=== PATIENT | male | born 1965 | race Caucasian/White ===

== ENCOUNTER 2018-03-21 12:48 | Emergency (ER) | payer BC, OTHER ==
[~2018-03-21] VITALS: Ht 172.7 cm; Wt 106.6 kg
[2018-03-21 13:01] VITALS: BP 153/86
[2018-03-21] MEDS ORDERED: LIDOCAINE 1% HCL (LOCAL ANESTH.) INJ 20ML MDV ONE (13:29)
[2018-03-21] MEDS ORDERED: LIDOCAINE 1% (LOCAL ANESTH.) PF 5ml SDV IJ ONE (13:30)
== END 2018-03-21 14:01 | disposition home or self-care (01) ==
LOC: ER 12:53
DX: L02.211 Cutaneous abscess of abdominal wall (principal); Z88.0 Allergy status to penicillin
CPT/HCPCS: 10060; 87205; 99283; J2001

== ENCOUNTER 2018-03-23 13:03 | Emergency (ER) | payer BC ==
[~2018-03-23] VITALS: Ht 172.7 cm; Wt 99.8 kg
[2018-03-23 13:31] VITALS: BP 146/84
== END 2018-03-23 15:38 | disposition home or self-care (01) ==
LOC: ER 13:07
DX: S31.104D Unspecified open wound of abdominal wall, left lower quadrant without penetration into peritoneal cavity, subsequent encounter (principal); R10.30 Lower abdominal pain, unspecified; Z88.0 Allergy status to penicillin; Z87.891 Personal history of nicotine dependence; Z90.49 Acquired absence of other specified parts of digestive tract; Z98.890 Other specified postprocedural states

== ENCOUNTER 2018-08-12 13:49 | Emergency (ER) | payer BC, OTHER ==
[~2018-08-12] VITALS: Ht 172.7 cm; Wt 106.6 kg
[2018-08-12 14:17] VITALS: BP 129/86
== END 2018-08-12 16:35 | disposition home or self-care (01) ==
LOC: ER 13:51
DX: K42.9 Umbilical hernia without obstruction or gangrene (principal); Z88.0 Allergy status to penicillin; Z91.013 Allergy to seafood; Z90.49 Acquired absence of other specified parts of digestive tract
CPT/HCPCS: 74176

== ENCOUNTER 2018-09-24 08:34 | Day surgery (SDC) | payer OTHER ==
[2018-09-22 13:59] LABS: Basophils # (auto) 0.1 uL; Basophils % (auto) 1.3 % (0.0-2.0); Eosinophils # (auto) 0.2 uL; Eosinophils % (auto) 2.3 % (0.0-7.0); Hemoglobin 17.3 g/dL (13.5-17.5); Lymphocytes # (auto) 2.6 uL; Lymphocytes % (auto) 25.5 % (10.0-50.0); Mean Corpuscular Hemoglobin 33.8 pg (28.0-32.0); Mean Corpuscular Volume 99.5 fL (80.0-100.0); Monocytes # (auto) 0.8 uL; Monocytes % (auto) 8.4 % (0.0-12.0); Neutrophils # (auto) 6.3 uL; Neutrophils % (auto) 62.5 % (37.0-80.0); Nucleated Red Blood Cells % 0.1 %; Platelet Count (auto) 254 10^3/uL (140-450); Red Blood Cells 5.13 10^6/uL (4.5-5.90); Red Cell Distribution Width 13.6 % (11.8-14.3); White Blood Cell 10.1 10^3/uL (4.4-10.8)
[2018-09-22 14:06] LABS: INR 0.97 (0.9-1.15); Partial Thromboplastin Time 29.6 sec (23.78-33.04); Prothrombin Time 10.4 sec (9.27-12.13)
[2018-09-22 14:10] LABS: Urine Bacteria NONE SEEN /hpf (None Seen); Urine Blood Negative /uL (Negative); Urine Mucus FEW (None Seen); Urine Specific Gravity 1.037 (1.001-1.035); Urine WBC 1 /hpf (0 - 3)
[2018-09-22 15:01] LABS: Albumin 3.8 g/dL (3.4-5.0); Calcium 9.1 mg/dL (8.5-10.1); Potassium 4.3 mmol/L (3.5-5.1)
[2018-09-22 15:03] LABS: BUN/Creatinine Ratio 21.9
[2018-09-22 15:06] LABS: Bilirubin, Total 0.5 mg/dL (0.2-1.0); Total Protein 7.8 g/dL (6.4-8.2)
[~2018-09-24] VITALS: Ht 172.7 cm; Wt 102.5 kg
[~2018-09-24 08:34] MED LIST: ACE3T PO
[2018-09-24] MEDS ORDERED: LEVOFLOXACIN 500MG 100 ML IV ONE (11:03)
[2018-09-24] MEDS ORDERED: MIDAZOLAM HCL 1MG/1ML-2 ML VIAL ONE ×2 (11:39→12:33)
[2018-09-24] MEDS ORDERED: LIDOCAINE 2% (LOCAL ANESTH.) PF 5ml SDV ONE (11:40)
[2018-09-24] MEDS ORDERED: ROCURONIUM 10MG/ML 10ML VIAL IV ONE (11:41)
[2018-09-24] MEDS ORDERED: SUCCINYLCHOLINE CHLORIDE 20 MG/ML 10ML VIAL IV ONE (12:30)
[2018-09-24] MEDS ORDERED: NALOXONE HCL 0.4 MG/ML VIAL IV PRN (12:30)
[2018-09-24] MEDS ORDERED: LIDOCAINE HCL (LOCAL ANESTH.) 0.5 % 50ML MDV IJ ONE (12:30)
[2018-09-24] MEDS ORDERED: HYDROmorphone HCL 2 MG/ML VL IV PRN (12:30)
[2018-09-24] MEDS ORDERED: ONDANSETRON HCL 4 MG/2 ML VIAL IV ONE (12:30)
[2018-09-24] MEDS ORDERED: METOCLOPRAMIDE HCL 5MG/ml INJ 2ml VIAL ONE (12:33)
[2018-09-24] MEDS ORDERED: PROPOFOL 10 MG/ML 20 ML IV ONE (12:38)
[2018-09-24] MEDS ORDERED: ePHEDrine SULFATE 50 MG/ML AMP ONE (12:50)
[2018-09-24] MEDS ORDERED: fentaNYL CITRATE 100 MCG/2 ML VL ONE (12:56)
[2018-09-24] MEDS ORDERED: KETOROLAC TROMETH 30 MG/ML 1ML VIAL ONE (13:04)
[2018-09-24] MEDS ORDERED: NEOSTIGMINE 1 MG/ML INJ (10mg/10ML VIAL) ONE (13:40)
[2018-09-24] MEDS ORDERED: GLYCOPYRROLATE 0.2 MG/ML 1ML VIAL ONE (13:40)
[2018-09-24] MEDS: HYDROmorphone HCL 2 MG/ML VL IV PRN ×2 (14:14→14:37)
[2018-09-24 15:11] VITALS: BP 144/90
== END 2018-09-24 15:33 | disposition home or self-care (01) ==
LOC: SUR 08:34
PROVIDERS: ATTEND Surgery
DX: K42.9 Umbilical hernia without obstruction or gangrene (principal); K43.2 Incisional hernia without obstruction or gangrene; E66.9 Obesity, unspecified; M19.90 Unspecified osteoarthritis, unspecified site; G47.33 Obstructive sleep apnea (adult) (pediatric); J44.9 Chronic obstructive pulmonary disease, unspecified; F17.210 Nicotine dependence, cigarettes, uncomplicated; I10 Essential (primary) hypertension; Z91.013 Allergy to seafood; Z68.34 Body mass index [BMI] 34.0-34.9, adult; Z90.49 Acquired absence of other specified parts of digestive tract; Z79.899 Other long term (current) drug therapy; Z88.0 Allergy status to penicillin; Z79.891 Long term (current) use of opiate analgesic
CPT/HCPCS: 36415; 49561; 80053; 81001; 85025; 85610; 85730; 88302; J0330; J1170; J1885; J1956; J2001; J2250; J2405; J2704; J2765; J3010; V2790

== ENCOUNTER 2023-04-14 13:45 | Inpatient (IN) | payer OTHER ==
[~2023-04-14] VITALS: Ht 172.7 cm; Wt 56.4 kg
[2023-04-14 14:49] LABS: Basophils # (auto) 0 10 ^3/uL (0-0.2); Basophils % (auto) 0.2 % (0.0-2.0); Eosinophils # (auto) 0.2 10 ^3/uL (0-0.8); Eosinophils % (auto) 2.2 % (0.0-7.0); Hematocrit 51.3 % (41.0-53.0); Hemoglobin 16.9 g/dL (13.5-17.5); Lymphocytes % (auto) 21.9 % (10.0-50.0); Mean Corpuscular Hemoglobin 33.3 pg (28.0-32.0); Mean Corpuscular Hgb Conc. 32.9 g/dL (32.0-36.0); Mean Corpuscular Volume 101.3 fL (80.0-100.0); Monocytes # (auto) 1.3 10 ^3/uL (0-1.3); Neutrophils # (auto) 5.7 10 ^3/uL (1.6-8.6); Neutrophils % (auto) 61.7 % (37.0-80.0); Nucleated Red Blood Cells % 0.3 %; Red Blood Cells 5.06 10^6/uL (4.5-5.90); Red Cell Distribution Width 15.8 % (11.8-14.3); White Blood Cell 9.3 10^3/uL (4.4-10.8)
[2023-04-14 15:13] LABS: Calcium 8.1 mg/dL (8.5-10.1); Potassium 4.5 mmol/L (3.5-5.1)
[2023-04-14 15:16] LABS: BUN/Creatinine Ratio 27.9 (10.0-20.0); Bilirubin, Total 0.8 mg/dL (0.2-1.0); Total Protein 6.4 g/dL (6.4-8.2)
[2023-04-14] MEDS ORDERED: BUDESONIDE (INHALATION) 0.5 MG/2 ML NEB NEB ONE (16:00)
[2023-04-14] MEDS ORDERED: ALBUTEROL SULF 2.5 MG/0.5ML(0.5%) NEB SOLN NEB ONE (16:00)
[2023-04-14] MEDS ORDERED: IPRATROPIUM BROM 0.5 MG/2.5ML INH SOL NEB ONE (16:00)
[2023-04-14 16:22] LABS: INR 1.24 (0.9-1.15); Partial Thromboplastin Time 29.5 sec (24.6-33.4)
[2023-04-14] MEDS ORDERED: NITROGLYCERIN 0.4 MG SL TAB SL PRN (17:30)
[2023-04-14] MEDS ORDERED: ACETAMINOPHEN 325 MG TAB PO PRN (17:30)
[2023-04-14] MEDS ORDERED: ALBUTEROL SULF 2.5 MG/0.5ML(0.5%) NEB SOLN NEB PRN (17:30)
[2023-04-14] MEDS ORDERED: MORPHINE SULFATE INJ 2 MG/ml SYRG IV PRN (17:30)
[2023-04-14] MEDS ORDERED: AZITHROMYCIN 500MG/ 250ML 250 ML IV ONE (17:45)
[2023-04-14] MEDS ORDERED: cefTRIAXone 1GM/50ML D5W 50 ML IV ONE (17:45)
[2023-04-14] MEDS ORDERED: ASPirin 325 MG TAB PO ONE (17:45)
[2023-04-14] MEDS: levoFLOXacin 500MG 100 ML IV SCH (17:45)
[2023-04-14] MEDS ORDERED: FUROSEMIDE 40 MG/4 ML VIAL IV ONE (17:45)
[2023-04-14 18:12] LABS: Cholesterol 103 mg/dL (< 200)
[2023-04-14 18:14] LABS: HDL Cholesterol 26 mg/dL (40-59); LDL Cholesterol 65 mg/dL (< 100); Triglycerides 91 mg/dL (< 150)
[2023-04-14] MEDS: ALBUTEROL SULF 2.5 MG/0.5ML(0.5%) NEB SOLN NEB SCH ×2 (18:37→22:52)
[2023-04-14] MEDS: IPRATROPIUM BROM 0.5 MG/2.5ML INH SOL NEB SCH ×2 (18:37→22:52)
[2023-04-15] MEDS: IPRATROPIUM BROM 0.5 MG/2.5ML INH SOL NEB SCH ×6 (02:23→23:08)
[2023-04-15] MEDS: ALBUTEROL SULF 2.5 MG/0.5ML(0.5%) NEB SOLN NEB SCH ×6 (02:23→23:08)
[2023-04-15 06:00] LABS: Basophils # (auto) 0.1 10 ^3/uL (0-0.2); Basophils % (auto) 0.8 % (0.0-2.0); Eosinophils # (auto) 0.2 10 ^3/uL (0-0.8); Eosinophils % (auto) 2.2 % (0.0-7.0); Mean Corpuscular Hemoglobin 33.7 pg (28.0-32.0); Mean Corpuscular Hgb Conc. 33.2 g/dL (32.0-36.0); Mean Corpuscular Volume 101.4 fL (80.0-100.0); Monocytes # (auto) 1.1 10 ^3/uL (0-1.3); Monocytes % (auto) 13.4 % (0.0-12.0); Neutrophils # (auto) 4.9 10 ^3/uL (1.6-8.6); Neutrophils % (auto) 59.6 % (37.0-80.0); Nucleated Red Blood Cells % 0.1 %; Red Blood Cells 4.73 10^6/uL (4.5-5.90); Red Cell Distribution Width 15.5 % (11.8-14.3); White Blood Cell 8.3 10^3/uL (4.4-10.8)
[2023-04-15 06:13] LABS: Potassium 3.9 mmol/L (3.5-5.1)
[2023-04-15 06:23] LABS: Albumin 2.8 g/dL (3.4-5.0); Bilirubin, Total 0.6 mg/dL (0.2-1.0); Calcium 8.2 mg/dL (8.5-10.1); Total Protein 6.7 g/dL (6.4-8.2)
[2023-04-15] MEDS ORDERED: cefTRIAXone 1GM/50ML D5W 50 ML IV SCH (09:00)
[2023-04-15] MEDS ORDERED: ENOXAPARIN SOD 40 MG/0.4 ML SYRINGE SC SCH (10:00)
[2023-04-15] MEDS ORDERED: FUROSEMIDE 20 MG/2 ML VIAL IV SCH (10:00)
[2023-04-15] MEDS ORDERED: AZITHROMYCIN 500MG/ 250ML 250 ML IV SCH (10:00)
[2023-04-15] MEDS: levoFLOXacin 500MG 100 ML IV SCH (10:55)
[2023-04-15] MEDS ORDERED: CARV3.1240 PO (11:11)
[2023-04-15] MEDS ORDERED: CYCL-837 PO (11:11)
[2023-04-15] MEDS ORDERED: VARE1TAB12 PO (11:11)
[2023-04-15] MEDS ORDERED: FURO20TA3 PO (11:11)
[2023-04-15] MEDS: CARVEDILOL 3.125 MG TAB PO SCH ×2 (12:39→22:45)
[2023-04-15] MEDS ORDERED: DIGOXIN (250MCG/ML) 2 ML AMPULE IV ONE (12:45)
[2023-04-15] MEDS ORDERED: metOLazone 5 MG TAB PO ONE (12:45)
[2023-04-15] MEDS: AMIODARONE HCL 200 MG TAB PO SCH ×2 (13:02→22:45)
[2023-04-15 15:25] VITALS: BP 118/78
[2023-04-15] MEDS: RIVAROXABAN 20 MG TAB PO SCH (20:03)
[2023-04-15] MEDS: CYCLOBENZAPRINE HCL 10 MG TAB PO PRN (20:42)
[2023-04-16] VITALS (12 sets, daily range): BP systolic 110–130; BP diastolic 74–90
[2023-04-16] MEDS: IPRATROPIUM BROM 0.5 MG/2.5ML INH SOL NEB SCH ×6 (02:00→22:21)
[2023-04-16] MEDS: ALBUTEROL SULF 2.5 MG/0.5ML(0.5%) NEB SOLN NEB SCH ×6 (02:00→22:21)
[2023-04-16] MEDS ORDERED: FORM1POW2 XX (04:55)
[2023-04-16] MEDS ORDERED: MIDAZOLAM HCL 2MG/2ML 2ml VIAL (1mg/ml) IV ONE (09:30)
[2023-04-16] MEDS ORDERED: fentaNYL CITRATE 100 MCG/2 ML VL IV ONE (09:30)
[2023-04-16] MEDS ORDERED: LIDOCAINE VISCOUS 2% 15ML UD PO ONE (09:30)
[2023-04-16] MEDS: FUROSEMIDE 40 MG/4 ML VIAL IV SCH (09:40)
[2023-04-16] MEDS: AMIODARONE HCL 200 MG TAB PO SCH ×2 (09:41→21:10)
[2023-04-16] MEDS: CARVEDILOL 3.125 MG TAB PO SCH ×2 (09:41→21:11)
[2023-04-16] MEDS: levoFLOXacin 500MG 100 ML IV SCH (09:41)
[2023-04-16] MEDS ORDERED: ACETAMINOPHEN/CODEINE#3 (300/30mg) TAB PO PRN (17:15)
[2023-04-16] MEDS: RIVAROXABAN 20 MG TAB PO SCH (17:52)
[2023-04-16] MEDS: CYCLOBENZAPRINE HCL 10 MG TAB PO PRN (17:52)
[2023-04-17] MEDS: CYCLOBENZAPRINE HCL 10 MG TAB PO PRN (01:45)
[2023-04-17] MEDS: IPRATROPIUM BROM 0.5 MG/2.5ML INH SOL NEB SCH ×5 (02:00→18:36)
[2023-04-17] MEDS: ALBUTEROL SULF 2.5 MG/0.5ML(0.5%) NEB SOLN NEB SCH ×5 (02:00→18:36)
[2023-04-17 05:00] VITALS: BP 113/72
[2023-04-17 08:00] VITALS: BP 132/56
[2023-04-17 09:32] VITALS: BP 113/68
[2023-04-17] MEDS ORDERED: FURO1TAB33 PO (10:18)
[2023-04-17] MEDS ORDERED: AMIO200T33 PO (10:18)
[2023-04-17] MEDS ORDERED: DAPA1TAB4 PO (10:18)
[2023-04-17] MEDS ORDERED: RIVA20TA PO (10:18)
[2023-04-17] MEDS ORDERED: CAR3125T PO (10:18)
[2023-04-17] MEDS ORDERED: ATO40T PO (10:18)
[2023-04-17] MEDS ORDERED: ENAL5TAB22 PO (10:18)
[2023-04-17] MEDS: CARVEDILOL 3.125 MG TAB PO SCH (10:24)
[2023-04-17] MEDS: levoFLOXacin 500MG 100 ML IV SCH (10:24)
[2023-04-17] MEDS: FUROSEMIDE 40 MG/4 ML VIAL IV SCH (10:24)
[2023-04-17] MEDS: AMIODARONE HCL 200 MG TAB PO SCH (10:26)
[2023-04-17] MEDS ORDERED: LEVO500T91 PO (10:27)
[2023-04-17 13:00] VITALS: BP 132/56
[2023-04-17 16:42] VITALS: BP 147/72
[2023-04-17] MEDS: RIVAROXABAN 20 MG TAB PO SCH (18:26)
== END 2023-04-17 20:03 | disposition home or self-care (01) | DRG 193 ==
LOC: ER 13:45 → TELE 17:31 → TELE-WESTW 04-16 04:15
PROVIDERS: ADMIT Nurse Practitioner Family; ATTEND Family Medicine
PROC: B24BZZ4 Ultrasonography of Heart with Aorta, Transesophageal (ICD-10-PCS; principal; 2023-04-16)
PROC: 5A2204Z Restoration of Cardiac Rhythm, Single (ICD-10-PCS; 2023-04-16)
DX: J18.9 Pneumonia, unspecified organism (principal); I50.23 Acute on chronic systolic (congestive) heart failure; J96.01 Acute respiratory failure with hypoxia; J44.1 Chronic obstructive pulmonary disease with (acute) exacerbation; J44.0 Chronic obstructive pulmonary disease with (acute) lower respiratory infection; I48.92 Unspecified atrial flutter; Z68.1 Body mass index [BMI] 19.9 or less, adult; I11.0 Hypertensive heart disease with heart failure; I48.91 Unspecified atrial fibrillation; E66.01 Morbid (severe) obesity due to excess calories; E78.00 Pure hypercholesterolemia, unspecified; F17.210 Nicotine dependence, cigarettes, uncomplicated; I25.5 Ischemic cardiomyopathy; Z79.01 Long term (current) use of anticoagulants; Z91.013 Allergy to seafood; Z88.0 Allergy status to penicillin
CPT/HCPCS: 36415; 36600; 71045; 80053; 80061; 82805; 83880; 84443; 84484; 85025; 85379; 85610; 85730; 87426; 87804; 93005; 93306; 93312; 93970; 94640; 96365; 96372; 96375; 99152; 99153; G0378; J1956; J2250

== ENCOUNTER 2025-03-24 15:52 | Inpatient (IN) | payer MEDICAID, OTHER ==
[2025-03-24] VITALS (13 sets, daily range): BP systolic 107–120; BP diastolic 71–78; PULSE 62–90; RESP 12–21; TEMP 97.7–98.3; O2SAT 90–99
[~2025-03-24] VITALS: Ht 175.3 cm; Wt 90.4 kg
[~2025-03-24 15:52] MED LIST changes: +AMIO200T33 PO; +ATOR-507 PO; +CAR3125T PO; +CARV3.1240 PO; +CYCL-837 PO; +DAPA1TAB4 PO; +ENAL5TAB22 PO; +FORM1POW2 XX; +FURO1TAB33 PO; +FURO20TA3 PO; +LEVO500T91 PO; +RIVA20TA PO; +VARE1TAB12 PO
[2025-03-24] MEDS: AMIODARONE BOLUS KIT 100 ML IV ONE (16:00)
[2025-03-24] MEDS: ONDANSETRON HCL 4 MG/2 ML VIAL IV ONE (16:00)
[2025-03-24] MEDS: methylPREDNISolone SOD SUCC 125 MG/2 ML VL ONE ×2 (16:00→16:08)
[2025-03-24] MEDS: MORPHINE SULFATE 4 MG/ML SYR/VIAL IV ONE (16:00)
[2025-03-24] MEDS: ANGIOMAX 250 MG VIAL IV ONE (16:00)
[2025-03-24] MEDS: MIDAZOLAM HCL 2MG/2ML 2ml VIAL (1mg/ml) ONE (16:01)
[2025-03-24] MEDS: diphenhdrAMINE HCL 50 MG/1 ML VL ONE (16:01)
[2025-03-24] MEDS: LIDOCAINE 2%HCL (LOCAL ANESTH.) INJ 20ML MDV ONE (16:02)
[2025-03-24] MEDS: SODIUM CHL 0.9% 50 ML ONE (16:02)
[2025-03-24] MEDS: IODIXANOL 320MG/ML 100ML BTL IV ONE (16:02)
[2025-03-24] MEDS: fentaNYL CITRATE 100 MCG/2 ML VL ONE (16:06)
--- NOTE | 2025-03-24 16:08 | ED.PDOC ---
History of Present Illness HPI Comments 59-year-old male presents with a chief complaint of chest pain x 2 days. Patient states that his pain is localized to his sternal region, radiating to his back side, describes as tightness and rates his pain a 10/10. Patient mentions that he initially went to urgent care and they saw PVCs on his EKG and it stated "ACUTE ID" which they then called CODE STEMI overhead. Patient was evaluated by Cardiac NET APPLICATIONS DEVELOPER Brittani Borges and CODE STEMI was cancelled. Patient denies any nausea, vomiting, or diarrhea at this time. Chief Complaint: Chest Pain Time Seen by MD: 15:52 Primary Care Provider: GAYE/EULA Reviewed Notes: Medications, Allergies Allergies: Coded Allergies: Penicillins (Verified Allergy, Unknown, 09/22/18) Shellfish Allergy (Verified Allergy, Unknown, 09/22/18) Home Meds Active Scripts Levofloxacin Hemihydrate (LEVAQUIN 500 MG) 500 Mg Tab, 1 TAB PO DAILY, #7 TAB Prov:JOVI FIGUEROA MD 04/17/23 Furosemide (Lasix) 20 Mg Tb, 1 TAB PO DAILY, #90 TAB 1 Refill Prov:JOVI FIGUEROA MD 04/17/23 Enalapril Maleate (Enalapril Maleate) 5 Mg Tab, 1 TAB PO DAILY, #90 TAB 1 Refill Prov:JOVI FIGUEROA MD 04/17/23 Carvedilol (Coreg) 3.125 Mg Tab, 1 TAB PO BID, #180 TAB 3 Refills Prov:JOVI FIGUEROA MD 04/17/23 Dapagliflozin Propanediol (Farxiga) 10 Mg Tab, 10 MG PO DAILY, #90 TAB Prov:JOVI FIGUEROA MD 04/17/23 Atorvastatin Calcium (Lipitor) 40 Mg Tab, 1 TAB PO QPM, #90 TAB 1 Refill Prov:JOVI FIGUEROA MD 04/17/23 Amiodarone Hcl (Amiodarone Hcl) 200 Mg Tab, 1 TAB PO BID, #180 TAB 1 Refill Prov:JOVI FIGUEROA MD 04/17/23 Rivaroxaban (XARELTO) 20 Mg Tab, 1 TAB PO DAILY, #90 TAB 3 Refills Prov:JOVI FIGUEROA MD 04/17/23 Reported Medications Formoterol Fumarate Dihydrate (Formoterol Fumarate) 1 Pow Pow, 1 POW XX PRN for SHORTNESS OF BREATH, POW 04/16/23 Carvedilol (Carvedilol) 3.125 Mg Tab, 1 TAB PO BID, #60 TAB 3 Refills 04/15/23 Cyclobenzaprine Hcl (Cyclobenzaprine Hcl) 5 Mg Tab, 10 MG PO DAILY, TAB 04/15/23 Furosemide (Furosemide) 20 Mg Tab, 1 TAB PO DAILY, #90 TAB 1 Refill 04/15/23 Varenicline Tartrate (Varenicline Starti... 0.5 mg X 11 & 1 mg X 42) 1 Tab Tab, 1 TAB PO 2XW, TAB 04/15/23 Acetaminophen W/ Codeine (Tylenol W/Cod #3) 1 Tab Tb, 1 TAB PO PRN 09/22/18 Information Source: Patient Mode of Arrival: Wheelchair Severity: Moderate Timing: Days Duration: Since onset Prehospital treatment: None Past Medical History PAST MEDICAL HISTORY: COPD Surgical History: Appendectomy, Hernia Repair, Tonsillectomy Family History Family History: Unknown Social History Smoker: Cigarettes Alcohol: Denies ETOH Use Drugs: Denies Drug Use Lives In: Home Constitutional: denies: chills, diaphoresis, fatigue, fever, malaise, sweats, weakness, others EENTM: denies: blurred vision, double vision, ear bleeding, ear discharge, ear drainage, ear pain, ear ringing, eye pain, eye redness, hearing loss, mouth pain, mouth swelling, nasal discharge, nose bleeding, nose congestion, nose pain, photophobia, tearing, throat pain, throat swelling, voice changes, others Respiratory: reports: shortness of breath; denies: cough, hemoptysis, orthopnea, SOB at rest, SOB with excertion, stridor, wheezing, others Cardiovascular: reports: chest pain; denies: dizzy spells, diaphoresis, Dyspnea on exertion, edema, irregular heart beat, left arm pain, lightheadedness, palpitations, PND, syncope, others Gastrointestinal: denies: abdomen distended, abdominal pain, blood streaked bowels, constipated, diarrhea, dysphagia, difficulty swallowing, hematemesis, melena, nausea, poor appetite, poor fluid intake, rectal bleeding, rectal pain, vomiting, others Genitourinary: denies: burning, dysuria, flank pain, frequency, hematuria, incontinence, penile discharge, penile sore, pain, testicle pain, testicle swelling, urgency, others Neurological: denies: dizziness, fainting, headache, left sided numbness, left sided weakness, numbness, paresthesia, pre-existing deficit, right sided numbness, right sided weakness, seizure, speech problems, tingling, tremors, weakness, others Musculoskeletal: denies: back pain, gout, joint pain, joint swelling, muscle pain, muscle stiffness, neck pain, others Integumetry: denies: bruises, change in color, change in hair/nails, dryness, laceration, lesions, lumps, rash, wounds, others Allergic/Immunocompromised: denies: Difficulty Healing, Frequent Infections, Hives, Itching, others Hematologic/Lymphatic: denies: anemia, blood clots, easy bleeding, easy bruising, swollen glands, others Endocrine: denies: excessive hunger, excessive sweating, excessive thirst, excessive urination, flushing, intolerance to cold, intolerance to heat, unexplained weight gain, unexplained weight loss, others Psychiatric: denies: anxiety, bipolar disorder, depression, hopeless, panic disorder, schizophrenia, sleepless, suicidal, others All Other Systems: Reviewed and Negative Physical Exam General Appearance: Moderate Distress, Normal HEENT: Normal ENT Inspection, Pharynx Normal, TMs Normal Neck: Full Range of Motion, Non-Tender, Normal, Normal Inspection Respiratory: Chest Non-Tender, Lungs Clear, No Accessory Muscle Use, No Respiratory Distress, Normal Breath Sounds Cardiovascular: Irregular, No Edema, No JVD, No Murmur, No Gallop, Normal Peripheral Pulses, Tachycardia Breast Exam: Deferred Gastrointestinal: No Organomegaly, Non Tender, No Pulsatile Mass, Normal Bowel Sounds, Soft Genitalia: Deferred Pelvic: Deferred Rectal: Deferred Extremities: No calf tenderness, Normal capillary refill, Normal inspection, Normal range of motion, Non-tender, No pedal edema Musculoskeletal : Apperance: Normal Neurologic: Alert, piped pocket machine operator II-XII nml as Tested, No Motor Deficits, Normal Affect, Normal Mood, No Sensory Deficits Cerebellar Function: NOT DONE Reflexes: NOT DONE Skin: Dry, Normal Color, Warm Peripheral Pulses: 3+ Radial (R), 3+ Radial (L) Lymphatic: No Adenopathy Was a procedure done? Was a procedure done?: No Differential Dx Considerations may include: Atrial flutter Electrolyte imbalance X-Ray, Labs, Meds, VS Vital Signs Date Time Temp Pulse Resp B/P (MAP) Pulse Ox O2 Delivery O2 Flow Rate FiO2 03/24/25 16:06 98.3 79 16 138/82 (100) 95 98.3 03/24/25 16:06 79 21 95 Nasal Cannula* 3 32 03/24/25 16:06 98.3 79 21 138/82 (100) 95 98.3 03/24/25 15:54 78 03/24/25 15:52 95 Room Air* 0 21 03/24/25 15:52 98.3 79 16 138/82 (100) 95 98.3 Patient alert. Came in because of chest discomfort. EKG does show atrial flutter. Placed on oxygen. Was given morphine. Was given Zofran. Cardiology at bedside. Was taken to laboratory analyst. Explained to family. Continue to monitor. Time of 1ST Reevaluation: 16:22 Reevaluation 1ST: Unchanged Patient Education/Counseling: Diagnosis, Treatment, Need For Follow Up Family Education/Counseling: No Family Present Departure 1 Departure Time of Disposition: 16:29 Impression: Primary Impression: NSTEMI (non-ST elevated myocardial infarction) Additional Impression: Atrial flutter Qualified Codes: I48.92 - Unspecified atrial flutter Disposition: ADMITTED INPATIENT Admit to: Med Surg Condition: Guarded Critical Care Note Critical Care Time?: Yes (45 min-critical care time only) Critical care comment: Atrial flutter Stability Stability form required: No Heart Score Heart Score: Heart Score Response (Comments) Value History Slightly Suspicious 0 EKG Normal 0 Age 45-64 1 Risk Factors >3 or Hx ASHD 2 Troponin N/A 0 Total 3 I personally scribed for CHANTAL FUCHS MD ([email or web address]) on 03/24/25 at 16:08. Electronically submitted by Sp Traylor ([email or web address]). CHANTAL FUCHS MD March 24, 2025 16:08
[2025-03-24] MEDS: FAMOTIDINE (10MG/ML) 2ML VL IV ONE (16:09)
[2025-03-24] MEDS: HEPARIN SODIUM (PORCINE) 5000 UNITS/ML 1ML VIAL ONE ×2 (16:12→16:47)
[2025-03-24] MEDS: VERAPAMIL 2.5MG/ML INJ 2ML VIAL IV ONE (16:12)
[2025-03-24] MEDS: AMIODARONE 360mg/200mL PREMIX 200 ML IV ONE ×2 (16:15→16:21)
--- NOTE | 2025-03-24 16:15 | DVHINCON2 ---
Date Seen: March 24, 2025 Referring Physician MD Aliya Reason for Consultation Chest pain History of Present Illness This is a 59-year-old man who presented to the [facility] urgent care clinic with a chief complaint of chest pain for two days. Describes his chest pain as substernal, nonradiating, tightness like, radiating to his back, and associated with RUQ abd pain, nausea and constipation for which the patient was taking a laxative OTC. He presented to the urgent care clinic undergoing a 12 lead electrocardiogram revealing a flutter rhythm with bigeminal PVCs with provider calling a Code STEMI. 12 lead electrocardiogram sent to on-call STEMI biostatistics professor, Dr. Stephens, cancelling the code. The patient was then transferred to the Emergency Room for further evaluation. Patient follows up in the outpatient setting with Dr. Milan. Significant medical history includes a-fib/a-flutter on amiodarone/BB/Xarelto and with a history of RUBY and DC cardioversion 2022, ischemic cardiomyopathy with LVEF of 25%, COPD secondary to smoking,hypertension, dyslipidemia, thyroid disease, history of nicotine dependence, methamphetamine abuse, and obesity. Past Medical History Past medical history reviewed. No other significant than mentioned above. Past Surgical History Appendectomy Hernia repair Tonsillectomy Family History: Patient reports no known family medical history. Family History Familial history reviewed. Social History Denies the use of illicit drugs, alcohol, or tobacco use. Allergies: Coded Allergies: Penicillins (Verified Allergy, Unknown, 09/22/18) Shellfish Allergy (Verified Allergy, Unknown, 09/22/18) Home Meds Active Scripts Levofloxacin Hemihydrate (LEVAQUIN 500 MG) 500 Mg Tab, 1 TAB PO DAILY, #7 TAB Prov:JOVI FIGUEROA MD 04/17/23 Furosemide (Lasix) 20 Mg Tb, 1 TAB PO DAILY, #90 TAB 1 Refill Prov:JOVI FIGUEROA MD 04/17/23 Enalapril Maleate (Enalapril Maleate) 5 Mg Tab, 1 TAB PO DAILY, #90 TAB 1 Refill Prov:JOVI FIGUEROA MD 04/17/23 Carvedilol (Coreg) 3.125 Mg Tab, 1 TAB PO BID, #180 TAB 3 Refills Prov:JOVI FIGUEROA MD 04/17/23 Dapagliflozin Propanediol (Farxiga) 10 Mg Tab, 10 MG PO DAILY, #90 TAB Prov:JOVI FIGUEROA MD 04/17/23 Atorvastatin Calcium (Lipitor) 40 Mg Tab, 1 TAB PO QPM, #90 TAB 1 Refill Prov:JOVI FIGUEROA MD 04/17/23 Amiodarone Hcl (Amiodarone Hcl) 200 Mg Tab, 1 TAB PO BID, #180 TAB 1 Refill Prov:JOVI FIGUEROA MD 04/17/23 Rivaroxaban (XARELTO) 20 Mg Tab, 1 TAB PO DAILY, #90 TAB 3 Refills Prov:JOVI FIGUEROA MD 04/17/23 Reported Medications Formoterol Fumarate Dihydrate (Formoterol Fumarate) 1 Pow Pow, 1 POW XX PRN for SHORTNESS OF BREATH, POW 04/16/23 Carvedilol (Carvedilol) 3.125 Mg Tab, 1 TAB PO BID, #60 TAB 3 Refills 04/15/23 Cyclobenzaprine Hcl (Cyclobenzaprine Hcl) 5 Mg Tab, 10 MG PO DAILY, TAB 04/15/23 Furosemide (Furosemide) 20 Mg Tab, 1 TAB PO DAILY, #90 TAB 1 Refill 04/15/23 Varenicline Tartrate (Varenicline Starti... 0.5 mg X 11 & 1 mg X 42) 1 Tab Tab, 1 TAB PO 2XW, TAB 04/15/23 Acetaminophen W/ Codeine (Tylenol W/Cod #3) 1 Tab Tb, 1 TAB PO PRN 09/22/18 Home Meds Home medications reviewed. Review of Systems Constitutional: No symptom reported Ears, Nose, & Throat: No symptom reported Eyes: No symptom reported Neurological: No symptoms reported Pulmonary/Respiratory: No symptom reported Cardiovascular: Chest pain Gastrointestinal: RUQ flank pain, constipation, nausea Genitourinary: No symptom reported Musculoskeletal: No symptom reported Skin: No symptom reported Psychiatric: No symptom reported Endocrine: No symptom reported Hemotologic/Lymphatic: No symptom reported Vital Signs Vital Signs Date Time Temp Pulse Resp B/P (MAP) Pulse Ox O2 Delivery O2 Flow Rate FiO2 03/24/25 16:06 98.3 79 16 138/82 (100) 95 98.3 03/24/25 16:06 Nasal Cannula* 3 32 Physical Exam General Appearance: Cooperative. Well developed. he will be. In no acute distress Head Exam: Normal inspection Neck Exam: Normal inspection. Non-tender. Normal alignment Pulmonary/Respiratory: Chest non-tender. Diminished bilateral breath sounds Cardiovascular/Chest: Regular rate and rhythm. Atrial flutter with ventricular bigeminy. No murmurs. No JVD. Peripheral Pulses: 2+ Radial (R). 2+ Radial (L). 2+ Pedal (R). 2+ Pedal (L) Abdominal Exam: Normal bowel sounds. Soft. Nontender. No hepatospenomegaly. No masses Ankle Exam: Negative ankle edema Lower extremities: Negative lower extremity edema Neuro/Mental Status: A&O x4. Coherent Thoughts/Psych: Normal thought pattern. Appropriate mood and affect. Good judgement and insight Appearance: In no acute distress Skin Exam: Normal inspection. Normal color. Warm. Dry Assessment Acute chest pain rule out coronary artery disease Nonischemic cardiomyopathy with LVEF of 25%, NYHA Class III Long standing persistent atrial fibrillation/atrial flutter, Stage III (on Xarelto/BB/amiodarone) COPD with history of tobacco dependence History of methamphetamine use Hypertension Dyslipidemia Obesity Plan/Recommendation (Dr. Millard) Given the patient's persistent and worsening chest pain symptoms, he has been scheduled for an urgent cardiac catheterization with coronary angiogram at first available. All risks and benefits of the procedure were discussed in full detail and agreed to proceed with intervention. All questions answered. Blood work pending at this time. Follows up in the outpatient setting with Dr. Milan, kindly reach out post-procedure for further cardiac follow-up. Thank you for allowing us to participate in this patient's care. Please call if you have any questions or concerns. Critical care time: 40 min. This medical document was created using an electronic medical record system with voice recognition software and computerized dictation system. Although this document has been carefully reviewed, there might still be some phonetic and typographical errors. Occasional wrong-word or ``sound-alike substitutions may have occurred due to the inherent limitations of voice recognition software. These areas are purely typographical due to imperfections of the software programs and do not reflect any compromise in the patient's medical care. Please read the chart carefully and recognize, using context, where these substitutions have occurred. Plan discussed with: Patient, Other NYHA Physical activity limitations: Class3(Marked) ordinary (activity causes symtoms) Date of Service: March 24, 2025 Billing Provider: RADHA CHACON Cardiology Common Codes: 87967-RLLTTEKH CARE 30-74 MIN RADHA CHACON March 24, 2025 16:15
--- NOTE | 2025-03-24 16:35 | DVHHPRES ---
History of Present Illness Resident Creating Document: ANIL FOX RESIDENT History of Present Illness This is a 59-year-old male patient with PMHx of systolic CHF-EF 25%, COPD on 3- 4 L home oxygen, inguinal hernia repair 2017, atrial flutter/fibrillation on Xarelto/beta bernard/amiodarone 2022 s/p RUBY and DC cardioversion, met hamphetamine abuse who initially went to the urgent care with chief complaint of chest tightness and right lower quadrant abdominal pain for the past 2 days. Per patient, he has been experiencing sharp, continuous right lower quadrant abdominal pain associated with vomiting 1 X, worsens with food, also reports constipation but says that he has been passing gas. He also mentioned intermittent chest tightness, substernal, nonradiating for which EKG was completed at urgent care which showed bigeminal PVCs and flutter rhythm, code STEMI was called. Bath Attendant canceled the code after a repeat EKG was completed. Past medical history: See above Past surgical history: 3 hernia surgeries in the past, tonsillectomy Social history: Quit smoking 6 months back, previously smoked 1 pack a day for the past 20 years, denies drinking or illicit drug use PCP Dr. Osullivan Bath Attendant Dr. Milan Home medications: Xarelto 20 mg, amiodarone 200 mg b.i.d., atorvastatin 40 mg, Coreg 3.125 mg b.i.d., Farxiga 10 mg daily, enalapril 5 mg daily, furosemide 20 mg daily Patient seen and examined in recovery area. Reports constipation and right lower quadrant abdominal pain. Smoke: Quit ALCOHOL: none Drugs: None Lives: with Family Review of Systems Cardiovascular: Chest Pain, Palpitations Gastrointestinal: Vomiting, Abdominal Pain, Constipation Allergies: Coded Allergies: Penicillins (Verified Allergy, Unknown, 09/22/18) Shellfish Allergy (Verified Allergy, Unknown, 09/22/18) Exam Vital Signs Vital Signs Date Time Temp Pulse Resp B/P (MAP) Pulse Ox O2 Delivery O2 Flow Rate FiO2 03/24/25 16:06 98.3 79 16 138/82 (100) 95 98.3 03/24/25 16:06 Nasal Cannula* 3 32 Exam Patient lying in bed, in no acute distress General: Obese, afebrile, palor, mucosae are moist Cardiovascular: Regular S1 and S2. No murmurs, gallops or rubs. No JVD elevation. No pedal edema Respiratory: Normal B/L air entry on room air. Clear lung sounds on auscultation Abdomen: Soft, right lower quadrant tenderness nondistended, hyperactive bowel sounds, no rebound tenderness, no organomegaly, no masses Genitourinary: Deferred MSK/skin: Mobilizes 4 limbs. Skin is dry and warm Neurological: No motor, no sensitive deficits, normal speech. Pupils are isocoric and reactive. Psych/Mental Status: A/Ox3 General Appearance: Alert Assessment/Plan Assessment/Plan Acute chest pain, rule out ACS Acute right lower quadrant abdominal pain Chronic systolic congestive heart failure-NYHA class 3-EF 25% Nonischemic cardiomyopathy Longstanding persistent atrial flutter/fibrillation COPD on 3 L home oxygen Chronic respiratory failure History of multiple hernia surgeries Hypertension Dyslipidemia Obesity History of tobacco dependence History of meth use Plan: Patient admitted to telemetry unit Patient is undergoing urgent cardiac catheterization with coronary angiogram at this time Continue home medication enalapril 5 mg, furosemide 20 mg, atorvastatin 40 mg Continue amiodarone 200 mg b.i.d. Follow up with CT abdomen/pelvis and liver ultrasound, echocardiogram MiraLax 1 g p.o. along with docusate 100 mg b.i.d. Pantoprazole 40 mg daily Lovenox 1 milligram/kg b.i.d. Strict I&Os, fluid restriction, clear liquid diet Plan discussed with patient in which all questions have been answered Goals of care discussed for more than 20 minutes, full code status Plan discussed with Dr. De La Garza Plan discussed with: Patient Date of Service: March 24, 2025 Billing Provider: DUTCH DE LA GARZA MD Common Visit Codes: [id number] INP/OBS CARE (HIGH) ANIL FOX RESIDENT March 24, 2025 16:35
[2025-03-24] MEDS ORDERED: MORPHINE SULFATE INJ 2 MG/ml SYRG IV PRN (16:45)
[2025-03-24] MEDS ORDERED: NITROGLYCERIN 0.4 MG SL TAB SL PRN (16:45)
--- NOTE | 2025-03-24 16:59 | DVHOP2 ---
Operative Report Procedures performed: Left heart catheterization and bilateral coronary angiogram Moderate sedation Diagnosis: Mild coronary artery disease LVEF of 60% with normal EDP Atrial flutter with variable AV block Cardiac suggestion for management: Management of atrial flutter as per primary cardiology (consider rhythm control- management and anticoagulation) Lifestyle and risk factor modifications Optimized medical therapy Findings: LVEF: 60% LVEDP: 5 mm Hg There was no transaortic valve pressure gradient Left main: Left main was coming off the left sinus of Valsalva. It was short with no significant disease. LAD: LAD was coming off the left main. It was a large caliber vessel and provided usual numbers of diagonals and septals. LAD throughout its course and branches revealed mild diffuse disease. LCX: LCX was coming off the left main. It was a large caliber vessel. It was a dominant vessel. LCX throughout its course and branches revealed mild diffuse disease. RCA: RCA was coming off the right sinus of Valsalva. It was a smaller caliber vessel with mild disease. It was nondominant Presentation: Patient presented to urgent care with abdominal pain. EKG questioned STEMI. Review of the EKG actually revealed atrial flutter with PVC/variable blocks. As the patient had some chest discomfort, decision was made to proceed with cardiac catheterization. Procedure: After obtaining informed consent, the patient was brought to the catholic priest. He was prepped and draped in sterile fashion. Right radial artery was used for access site. 1 mg of Versed and 25 mcg of fentanyl were used for conscious sedation. Using modified Seldinger technique, the right radial artery was accessed and a 6 Lithuanian slender sheath was inserted into it. 2.5 mg of verapamil and 100 mcg of nitroglycerin were given as a cocktail into right radial sheath. 5000 units of heparin was given peripherally. A 5 Lithuanian tiger 4 diagnostic catheter was used to perform left heart catheterization (obtaining pressures and performing left ventriculography) and bilateral coronary angiography. There was no indication for any transcatheter revascularization. There was no dissection/hematoma/perforation. Patient tolerated the procedure with no complication. Right radial artery access site was managed by deploying a TR band. Fluoroscopy time: 1.8 minutes contrast: 40 mL of NattyipaYARY Steiner MD March 24, 2025 16:58
[2025-03-24] MEDS ORDERED: MORPHINE SULFATE 4 MG/ML SYR/VIAL IV PRN (17:00)
[2025-03-24] MEDS ORDERED: ACETAMINOPHEN 500 MG TAB or CAP PO PRN (17:00)
[2025-03-24 17:30] LABS: Basophils # (auto) 0 10 ^3/uL (0-0.2); Basophils % (auto) 0.3 % (0.0-2.0); Eosinophils # (auto) 0 10 ^3/uL (0-0.8); Eosinophils % (auto) 0.2 % (0.0-7.0); Platelet Count (auto) 188 10^3/uL (140-450)
[2025-03-24] MEDS ORDERED: ONDANSETRON HCL 4 MG/2 ML VIAL IV PRN (17:30)
[2025-03-24 17:36] LABS: Hemoglobin 19.7 g/dL (13.5-17.5); Lymphocytes # (auto) 1.8 10 ^3/uL (0.4-5.4); Lymphocytes % (auto) 14.1 % (10.0-50.0); Mean Corpuscular Hemoglobin 33.1 pg (28.0-32.0); Mean Corpuscular Hgb Conc. 33.7 g/dL (32.0-36.0); Mean Corpuscular Volume 98.2 fL (80.0-100.0); Monocytes # (auto) 1.5 10 ^3/uL (0-1.3); Monocytes % (auto) 12.1 % (0.0-12.0); Neutrophils # (auto) 9.3 10 ^3/uL (1.6-8.6); Neutrophils % (auto) 73.3 % (37.0-80.0); Nucleated Red Blood Cells % 0.5 %; Red Blood Cells 5.93 10^6/uL (4.5-5.90); Red Cell Distribution Width 14.4 % (11.8-14.3); White Blood Cell 12.7 10^3/uL (4.4-10.8)
[2025-03-24 17:45] LABS: Alanine Aminotransferase 18 U/L (7-40); Albumin 4.6 g/dL (3.2-4.8); Alkaline Phosphatase 110 U/L (46-116); Anion Gap 8 (5-15); Aspartate Aminotransferase 16 U/L (13-40); BUN/Creatinine Ratio 17.9 (10.0-20.0); Blood Urea Nitrogen 12 mg/dL (9-23); Carbon Dioxide 23 mmol/L (20-31); Chloride 103 mmol/L (98-107); Potassium 4.2 mmol/L (3.5-5.1); Total Protein 7.2 g/dL (5.7-8.2)
--- NOTE | 2025-03-24 17:49 | DVH ---
EXAM: XR Chest, 1 View CLINICAL INDICATION: CHF TECHNIQUE: Frontal view of the chest. COMPARISON: XY CHEST PORTABLE on DOS: 04/14/23 FINDINGS: LUNGS AND PLEURAL SPACES: Unremarkable. No consolidation. No pneumothorax. HEART: Unremarkable. No cardiomegaly. MEDIASTINUM: Unremarkable. Normal mediastinal contour. BONES/JOINTS: Unremarkable. No acute fracture. OTHER FINDINGS: . IMPRESSION: No acute cardiopulmonary process.
[2025-03-24 18:04] LABS: Hematocrit 58.2 % (41.0-53.0)
[2025-03-24 18:09] LABS: Bilirubin, Total 1.9 mg/dL (0.2-1.0); Glucose 122 mg/dL (74-106); Sodium 134 mmol/L (136-145)
[2025-03-24 18:10] LABS: CRP High Sensitivity 5.32 mg/dL (<1.0)
[2025-03-24] MEDS: LEVALBUTEROL HCL 1.25 MG/3 ML NEB NEB SCH (18:50)
[2025-03-24] MEDS: IPRATROPIUM BROM 0.5 MG/2.5ML INH SOL NEB SCH (18:50)
[2025-03-24] MEDS: IPRATROPIUM BROM 0.5 MG/2.5ML INH SOL NEB ONE (18:50)
[2025-03-24 18:56] LABS: Erythrocyte Sedimentation Rate 4 mm/hr (0-20)
--- NOTE | 2025-03-24 18:59 | ECG ---
[facility] Test Date: 2025-03-24 Test Time: 15:54:55 Pat Name: MILI PETE Department: ED Room: 0217T Gender: M Cycle Counter: huong : 1965 Requested By: CHANTAL FUCHS Order Number: [id number] Reading MD: Geoff Stephens Measurements Intervals Hensley Rate: 78 P: 0 IL: 0 QRS: 119 QRSD: 153 T: 60 QT: 403 QTc: 460 Interpretive Statements Atrial flutter Nonspecific intraventricular conduction delay Inferior infarct, acute (RCA) Probable RV involvement, suggest recording right precordial leads Electronically Signed On 03-28-2025 22:06:23 PDT by Geoff Stephens Please click the below link to view image of tracing.
[2025-03-24] MEDS: DOCUSATE SOD 100 MG CAP PO ONE (20:55)
[2025-03-24] MEDS: PANTOPRAZOLE 40 MG/10 ML VIAL INJ IV ONE (20:55)
[2025-03-24] MEDS: POLYETHYLENE GLYCOL 17 GM PWDR PO ONE (20:55)
--- NOTE | 2025-03-24 21:07 | DVH ---
INDICATION: Right lower quadrant pain, rule out gallstone. TECHNIQUE: Ultrasound liver. Multiple real-time sonographic images of the abdomen were obtained. COMPARISON: None FINDINGS: Changes in the hepatic parenchyma suggests steatosis The liver measures 18.2 cm. No intrah epatic biliary ductal dilatation is noted. The gallbladder wall measures 0.57cm and is thickened. There are gallstones in the gallbladder no s ludge. Gallbladder is distended with bile. The common duct measures 0.71 cm and is unremarkable. No pericholecystic fluid is noted. The right kidney measures 11.6 cm. No hydronephrosis. The pancreas is not well visualized due to obscuration from bowel gas. The visualized portions of the IVC and aorta are grossly unremarkable. IMPRESSION: 1. Liver measures 18.2 cm with parenchymal changes suggesting steatosis. 2. Gallbladder wall thickness and mildly dilated common bile duct. There is cholelithiasis. No sonogr aphic Adamson's sign.
[2025-03-24] MEDS ORDERED: AMIODARONE HCL 200 MG TAB PO SCH (22:00)
[2025-03-24] MEDS: AMIODARONE 360mg/200mL PREMIX 200 ML IV SCH (22:37)
[2025-03-24] MEDS: ENOXAPARIN SOD 100 MG/1 ML SYRINGE SC SCH (22:37)
[2025-03-24] MEDS: CARVEDILOL 3.125 MG TAB PO SCH (22:38)
[2025-03-24] MEDS: DOCUSATE SOD 100 MG CAP PO SCH (22:38)
[2025-03-25] VITALS (17 sets, daily range): BP systolic 102–129; BP diastolic 63–77; PULSE 53–91; RESP 17–20; TEMP 97.4–98.3; O2SAT 89–95
[2025-03-25] MEDS: ZOLPIDEM TARTRATE 5 MG TAB PO ONE (01:22)
[2025-03-25] MEDS ORDERED: ZOLP10TA6 PO (01:25)
[2025-03-25] MEDS ORDERED: LEVO-848 PO (01:25)
[2025-03-25] MEDS ORDERED: PANT1INJ3 PO (01:25)
[2025-03-25] MEDS ORDERED: ESCI1TAB36 PO (01:26)
[2025-03-25 01:44] LABS: Urine Bacteria None Seen /hpf (None Seen)
[2025-03-25 02:04] LABS: Urine Blood Negative /uL (Negative); Urine Clarity Clear (Clear); Urine Color Yellow (Yellow); Urine Protein, UAD TRACE (Negative); Urine Specific Gravity 1.018 (1.001-1.035); Urine Squamous Epithelial Cell None Seen /hpf (<5); Urine Urobilinogen Normal (Negative); Urine WBC 2 /HPF (0-3); Urine pH 5.5 (5.0-9.0)
[2025-03-25 02:10] LABS: Benzodiazephine Screen, Urine Pos (NEGATIVE)
[2025-03-25 02:14] LABS: Amphetamine Screen, Urine Neg (NEGATIVE); Barbiturate Scree,Urine Neg (NEGATIVE); Cannabinoid Screen, Urine Neg (NEGATIVE); Cocaine Screen, Urine Neg (NEGATIVE); Opiate Scree,Urine Neg (NEGATIVE); Phencyclidine Screen, Urine Neg (NEGATIVE)
[2025-03-25 08:01] LABS: Basophils # (auto) 0 10 ^3/uL (0-0.2); Basophils % (auto) 0.1 % (0.0-2.0); Eosinophils # (auto) 0 10 ^3/uL (0-0.8); Hematocrit 54.3 % (41.0-53.0); Mean Corpuscular Hemoglobin 33.5 pg (28.0-32.0); Monocytes # (auto) 1.3 10 ^3/uL (0-1.3); Red Blood Cells 5.57 10^6/uL (4.5-5.90); Red Cell Distribution Width 14.8 % (11.8-14.3)
[2025-03-25 08:03] LABS: Hemoglobin 18.6 g/dL (13.5-17.5); Lymphocytes # (auto) 1.5 10 ^3/uL (0.4-5.4); Mean Corpuscular Hgb Conc. 34.3 g/dL (32.0-36.0); Mean Corpuscular Volume 97.5 fL (80.0-100.0); Monocytes % (auto) 11.4 % (0.0-12.0); Neutrophils # (auto) 8.5 10 ^3/uL (1.6-8.6); Neutrophils % (auto) 75.5 % (37.0-80.0); Platelet Count (auto) 170 10^3/uL (140-450); White Blood Cell 11.2 10^3/uL (4.4-10.8)
[2025-03-25 08:14] LABS: Alanine Aminotransferase 13 U/L (7-40); Alkaline Phosphatase 88 U/L (46-116); Anion Gap 9 (5-15); Blood Urea Nitrogen 13 mg/dL (9-23); Calcium 9.8 mg/dL (8.7-10.4); Carbon Dioxide 24 mmol/L (20-31); Chloride 103 mmol/L (98-107); Potassium 3.9 mmol/L (3.5-5.1); Sodium 136 mmol/L (136-145); Total Protein 7.3 g/dL (5.7-8.2)
[2025-03-25 08:15] LABS: Bilirubin, Total 0.9 mg/dL (0.2-1.0)
[2025-03-25 08:17] LABS: INR 1.25 (0.9-1.15); Partial Thromboplastin Time 36.7 SEC (24.5-34.5)
[2025-03-25 08:19] LABS: Albumin 4.4 g/dL (3.2-4.8)
[2025-03-25 08:27] LABS: Aspartate Aminotransferase 10 U/L (13-40); Glucose 119 mg/dL (74-106)
--- NOTE | 2025-03-25 09:21 | DVH ---
Exam: CT CT AB PEL WO CON-NO ORAL OR IV History: RLQ pain, constipation, hyperactive sounds, hernia surgeries Comparison Study: None Technique: Multidetector spiral CT of the abdomen was performed from lung bases to pubic symphysis. I maging was performed without IV contrast. Axial, coronal and sagittal multiplanar reformats were obta ined from the axial data set by the technologist. Radiation Dose : 1. Abdomen/Pelvis: CTDIvol 15.66 mGy, DLP 958.69 mGy*cm. Findings: Evaluation of solid organs is limited due to lack of intravenous contrast use. Lung Bases: Right basilar subsegmental atelectasis. 0.9 cm nodule in the left lower lobe. Liver: Nodular hepatic contours are suspicious for cirrhosis. Gallbladder and Biliary Tree: Cholelithiasis and [id number] pericholecystic inflammatory change . Spleen: Unremarkable Pancreas: The pancreas is grossly normal in appearance. Adrenal Glands: Unremarkable Kidneys: Bilateral punctate nonobstructing renal stones measuring up to 0.1 cm. Bladder: Grossly unremarkable for degree of distention. Bowel: The stomach is grossly normal in appearance. Diverticulosis. Moderate bowel wall thickening of the ascending colon. Moderate colonic stool. The appendix is not visualized; however, no secondary findings of acute appendicitis identified. Ascites: Absent Lymphadenopathy: No mesenteric, retroperitoneal or periportal lymphadenopathy. Abdominal Wall and Mesentery: Small bilateral fat containing inguinal hernias, [id number] t. Vasculature: The visualized abdominal aorta is normal in size and caliber. Evaluation of abdominal a nd pelvic vessels is limited due to lack of intravenous contrast. Pelvic Organs: Unremarkable Musculoskeletal: No aggressive focal bony lesions, acute fractures or dislocation. IMPRESSION: Cholelithiasis with mild to moderate pericholecystic inflammatory change. Findings are suspicious fo r cholecystitis. Clinical correlation advised. Possible mild colitis involving the ascending colon. Nodular hepatic contours are suspicious for cirrhosis.
--- NOTE | 2025-03-25 11:41 | DVHSR ---
APPROVED REPORT EXAM: Two-dimensional and M-mode echocardiogram with Doppler and color Doppler. Blood Pressure: 102/69 mmHg INDICATION CHF RISK FACTORS Height: 69, Weight: 198 DIMENSIONS LVDd (3.8-5.7cm)LA (2D)4.5 (1.9-4.0cm)Aortic Root (2.0-3.7cm) EF (%) 46.0 (55-70%)Rt. Atrium4.7 (1.9-4.0cm)Asc. Aorta cm Mitral Valve MitralMitral Stenosis E wave1.09m/sMV Mean GR.mmHg A wave0.76m/sMV Peak GR.76mmHg E/A ratio1.42D MVAcm2 DECEL [id number] 1/2 [id number] IVRTmsDop MVA2.96cm2 Aortic Valve Aortic ValveAortic Stenosis V10.73m/Mayelin Mean GR.3mmHg V21.07m/Mayelin Peak GR.5mmHg Pulmonic Valve V20.77m/s Other Information Technically limited study due to body habitus, patient position and patient kept moving during exam. Conclusion lvef 50% by visual estimate RV enlarged left atrium enlarged mild to moderate mitral regurg small pericardial effusion no HD compromise adjajcent to RV
[2025-03-25] MEDS: ENALAPRIL MALEATE 2.5 MG TAB PO SCH (12:11)
[2025-03-25] MEDS: PANTOPRAZOLE 40 MG/10 ML VIAL INJ IV SCH (12:12)
[2025-03-25] MEDS: FUROSEMIDE 20 MG/2 ML VIAL IV SCH (12:12)
--- NOTE | 2025-03-25 12:22 | DVHINCON2 ---
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 [facility] was - for cad. pt is in rate controlled AFL Past Medical History reviewed Family History: Cardiovascular disease G8 FATHER, Malignant neoplasm of breast G8 MOTHER, (BREAST CANCER) Allergies: Coded Allergies: Penicillins (Verified Allergy, Unknown, 09/22/18) Shellfish Allergy (Verified Allergy, Unknown, 09/22/18) Home Meds Active Scripts Furosemide (Lasix) 20 Mg Tb, 1 TAB PO DAILY, #90 TAB 1 Refill Prov:JOVI FIGUEROA MD 04/17/23 Enalapril Maleate (Enalapril Maleate) 5 Mg Tab, 1 TAB PO DAILY, #90 TAB 1 Refill Prov:JOVI FIGUEROA MD 04/17/23 Carvedilol (Coreg) 3.125 Mg Tab, 1 TAB PO BID, #180 TAB 3 Refills Prov:JOVI FIGUEROA MD 04/17/23 Dapagliflozin Propanediol (Farxiga) 10 Mg Tab, 10 MG PO DAILY, #90 TAB Prov:JOVI FIGUEROA MD 04/17/23 Atorvastatin Calcium (Lipitor) 40 Mg Tab, 1 TAB PO QPM, #90 TAB 1 Refill Prov:JOVI FIGUEROA MD 04/17/23 Amiodarone Hcl (Amiodarone Hcl) 200 Mg Tab, 1 TAB PO BID, #180 TAB 1 Refill Prov:JOVI FIGUEROA MD 04/17/23 Rivaroxaban (XARELTO) 20 Mg Tab, 1 TAB PO DAILY, #90 TAB 3 Refills Prov:JOVI FIGUEROA MD 04/17/23 Reported Medications Escitalopram Oxalate (ESCITALOPRAM OXALATE) 10 Mg Tab, 1 TAB PO DAILY, #30 TAB 3 Refills 03/25/25 Pantoprazole Sodium (PANTOPRAZOLE SODIUM) 40 Mg Inj, 40 MG PO, INJ 03/25/25 Levothyroxine Sodium (SYNTHROID TABLET) 50 Mcg Tb, 1 TAB PO DAILY, #30 TAB 5 Refills 03/25/25 Zolpidem Tartrate (Zolpidem Tartrate) 10 Mg Tab, 1 TAB PO QPM, #30 TAB 2 Refills 03/25/25 Carvedilol (Carvedilol) 3.125 Mg Tab, 1 TAB PO BID, #60 TAB 3 Refills 04/15/23 Furosemide (Furosemide) 20 Mg Tab, 1 TAB PO DAILY, #90 TAB 1 Refill 04/15/23 Current Medications Current Medications Medications (Trade) Dose Ordered Sig/Sergio Route PRN Reason Start Time Stop Time Status Last Admin Nitroglycerin (Ntrostat Sublingual) 0.4 mg Q5MINP PRN SL FOR CHEST PAIN 03/24/25 16:45 Morphine Sulfate 2 mg Q30M PRN IV FOR CHEST PAIN 03/24/25 16:45 Acetaminophen (Tylenol Tablet Or Capsule) 500 mg Q4HPRN PRN PO MILD PAIN (1-3 PAIN SCALE) 03/24/25 17:00 Acetaminophen/ Hydrocodone Bitart ([place] 5/325MG Tab) 1 tab Q4HPRN PRN PO MODERATE PAIN (4-6 PAIN SCALE) 03/24/25 17:00 Morphine Sulfate 1 mg Q4HPRN PRN IV SEVERE PAIN (7-10 PAIN SCALE) 03/24/25 17:00 Enoxaparin Sodium (Lovenox) 90 mg Q12HR SC 03/24/25 22:00 03/25/25 12:13 Amiodarone HCl (Cordarone Tablet) 200 mg Q12HR PO 03/24/25 22:00 03/25/25 00:52 DC Carvedilol (Coreg Tablet) 6.25 mg Q12HR PO 03/24/25 22:00 03/24/25 22:38 Enalapril Maleate (Vasotec Tablet) 5 mg DAILY PO 03/25/25 10:00 03/25/25 12:11 Furosemide (Lasix Injection) 20 mg DAILY IV 03/25/25 10:00 03/25/25 12:12 Docusate Sodium (Colace Capsule) 100 mg BID PO 03/24/25 22:00 03/25/25 12:12 Pantoprazole Sodium (Protonix) 40 mg DAILY IV 03/25/25 10:00 03/25/25 12:12 Ondansetron HCl (Zofran) 4 mg Q4HPRN PRN IV NAUSEA / VOMITING 03/24/25 17:30 Ipratropium [place] (Atrovent Medneb) 0.5 mg Q6HR NEB 5/28/25 18:00 03/25/25 06:35 Levalbuterol HCl (Xopenex Medneb) 1.25 mg Q6HR NEB 03/24/25 18:00 03/25/25 06:35 Review of Systems 10 pt ros otherwise negative Vital Signs Vital Signs Date Time Temp Pulse Resp B/P (MAP) Pulse Ox O2 Delivery O2 Flow Rate FiO2 03/25/25 12:12 128/77 03/25/25 10:00 57 03/25/25 09:00 97.7 17 93 97.7 03/25/25 06:35 Nasal Cannula* 4 36 Physical Exam nad s1 s1 irregular ctab soft nt/nd no edema Labs/Diagnostic Data Labs Test 03/25/25 06:58 03/24/25 23:58 03/24/25 15:45 Range/Units White Blood Count 11.2 H 4.4-10.8 10^3/uL Red Blood Count 5.57 4.5-5.90 10^6/uL Hemoglobin 18.6 H 13.5-17.5 g/dL Hematocrit 54.3 H 41.0-53.0 % Mean Corpuscular Volume 97.5 80.0-100.0 fL Mean Corpuscular Hemoglobin 33.5 H 28.0-32.0 pg Mean Corpuscular Hemoglobin Concent 34.3 32.0-36.0 g/dL Red Cell Distribution Width 14.8 H 11.8-14.3 % Platelet Count 170 140-450 10^3/uL Mean Platelet Volume 8.5 6.9-10.8 fL Neutrophils (%) (Auto) 75.5 37.0-80.0 % Lymphocytes (%) (Auto) 13.0 10.0-50.0 % Monocytes (%) (Auto) 11.4 0.0-12.0 % Eosinophils (%) (Auto) 0.0 0.0-7.0 % Basophils (%) (Auto) 0.1 0.0-2.0 % Neutrophils # (Auto) 8.5 1.6-8.6 10 ^3/uL Lymphocytes # (Auto) 1.5 0.4-5.4 10 ^3/uL Monocytes # (Auto) 1.3 0-1.3 10 ^3/uL Eosinophils # (Auto) 0 0-0.8 10 ^3/uL Basophils # (Auto) 0 0-0.2 10 ^3/uL Nucleated Red Blood Cells 0.0 % Prothrombin Time 13.0 H 9.3-11.8 sec Prothrombin Time INR 1.25 H 0.9-1.15 Activated Partial Thromboplast Time 36.7 H 24.5-34.5 SEC Sodium Level 136 136-145 mmol/L Potassium Level 3.9 3.5-5.1 mmol/L Chloride Level 103 98-107 mmol/L Carbon Dioxide Level 24 20-31 mmol/L Anion Gap 9 5-15 Blood Urea Nitrogen 13 9-23 mg/dL Creatinine 0.65 L 0.700-1.30 mg/dL Glomerular Filtration Rate Calc 107 >90 mL/min BUN/Creatinine Ratio 20.0 10.0-20.0 Serum Glucose 119 H 74-106 mg/dL Hemoglobin A1c 6.0 H <5.7 % A1C Calcium Level 9.8 8.7-10.4 mg/dL Total Bilirubin 0.9 0.2-1.0 mg/dL Aspartate Amino Transferase (AST) 10 L 13-40 U/L Alanine Aminotransferase (ALT) 13 7-40 U/L Alkaline Phosphatase 88 46-116 U/L Total Protein 7.3 5.7-8.2 g/dL Albumin 4.4 3.2-4.8 g/dL Vitamin B12 Level 345 211-911 pg/mL Vitamin D 25-Hydroxy 40.8 30.0-100 ng/mL Thyroid Stimulating Hormone (TSH) 2.97 0.55-4.78 uIU/mL Urine Color Yellow Yellow Urine Clarity Clear Clear Urine pH 5.5 5.0-9.0 Urine Specific [place] 1.018 1.001-1.035 Urine Protein Trace H Negative Urine Ketones Negative Negative Urine Blood Negative Negative /uL Urine Nitrite Negative Negative Urine Bilirubin Negative Negative Urine Urobilinogen Normal Negative mg/dL Urine Leukocyte Esterase Negative Negative /uL Urine RBC None seen 0 - 3 /hpf Urine Microscopic WBC 2 0-3 /HPF Urine Squamous Epithelial Cells None seen <5 /hpf Urine Bacteria None seen None Seen /hpf Urine Glucose 4+ H Normal mg/dL Urine Opiates Screen Neg NEGATIVE Urine Fentanyl Screen Pos NEGATIVE Urine Barbiturates Screen Neg NEGATIVE Urine Phencyclidine Screen Neg NEGATIVE Urine Amphetamines Screen Neg NEGATIVE Urine Benzodiazepines Screen Pos NEGATIVE Urine Cocaine Screen Neg NEGATIVE Urine Cannabinoids Screen Neg NEGATIVE Erythrocyte Sedimentation Rate 4 0-20 mm/hr Magnesium Level 1.6 1.6-2.6 mg/dL C-Reactive Protein High Sensitivity 5.32 H <1.0 mg/dL Lipase 30 12-53 U/L Assessment r/o stemi htn HL atrial flutter mild LV dysfunciton echo reviewed [facility] images personally reviewed, no sig CAD cont doac dc amio gtt ,start po outpt fu Plan discussed with: Patient ALLY FORDE MD March 25, 2025 12:22
[2025-03-25] MEDS: metroNIDAZOLE 500MG/100ML 100 ML IV SCH (14:14)
[2025-03-25] MEDS: cefTRIAXone 1GM/50ML D5W 50 ML IV ONE (14:14)
--- NOTE | 2025-03-25 14:37 | DVHPN2 ---
Subjective Seen and examined at bedside, patient is c/o RUQ abdominal pain. Will await MRCP. Patient likely needs a Cholecystectomy. LHC negative for CAD Changes from previous H/P or p: No Changes Cardiovascular: No Chest Pain, No Palpitations, No Orthopnea, No Paroxysmal Noc. Dyspnea, No Edema, No Lt Headedness, No Other Gastrointestinal: Abdominal Pain, Constipation Objective Vitals Vital Signs Date Time Temp Pulse Resp B/P (MAP) Pulse Ox O2 Delivery O2 Flow Rate FiO2 03/25/25 12:30 97.4 64 19 129/76 (93) 93 97.4 03/25/25 10:00 Room Air* 0 21 Intake/Output Intake and Output 03/25/25 07:00 Intake Total 633.32 ml Balance 633.32 ml Intake Oral 500 ml IV Total 133.32 ml General Appearance: Alert, Oriented X3, Cooperative HEENT: Atraumatic Lungs: Clear to auscultation Cardiovascular: Other (irregular) Abdomen: Other (RUQ Tenderness) Psych/Mental Status: Mental status NL Medications Current Medications Medications Dose Ordered Sig/Sergio Route Start Time Stop Time Status Last Admin Dose Admin Nitroglycerin 0.4 mg Q5MINP PRN SL 03/24/25 16:45 Morphine Sulfate 2 mg Q30M PRN IV 03/24/25 16:45 Acetaminophen 500 mg Q4HPRN PRN PO 03/24/25 17:00 Acetaminophen/ Hydrocodone Bitart 1 tab Q4HPRN PRN PO 03/24/25 17:00 Morphine Sulfate 1 mg Q4HPRN PRN IV 03/24/25 17:00 Enoxaparin Sodium 90 mg Q12HR SC 03/24/25 22:00 03/25/25 12:13 90 MG Carvedilol 6.25 mg Q12HR PO 03/24/25 22:00 03/24/25 22:38 6.25 MG Enalapril Maleate 5 mg DAILY PO 03/25/25 10:00 03/25/25 12:11 5 MG Furosemide 20 mg DAILY IV 03/25/25 10:00 03/25/25 12:12 20 MG Docusate Sodium 100 mg BID PO 03/24/25 22:00 03/25/25 12:12 100 MG Pantoprazole Sodium 40 mg DAILY IV 03/25/25 10:00 03/25/25 12:12 40 MG Ondansetron HCl 4 mg Q4HPRN PRN IV 03/24/25 17:30 Ipratropium [place] 0.5 mg Q6HR NEB 03/24/25 18:00 03/25/25 12:20 0.5 MG Levalbuterol HCl 1.25 mg Q6HR NEB 03/24/25 18:00 03/25/25 12:20 1.25 MG Amiodarone HCl 200 mg Q12HR PO 03/25/25 22:00 Ceftriaxone Sodium 50 ml @ 100 mls/hr DAILY@09 IV 03/26/25 09:00 Metronidazole 100 ml @ 100 mls/hr Q8HR IV 03/25/25 14:00 03/25/25 14:14 100 MLS/HR Laboratory Results Laboratory Tests 03/25/25 06:58 Chemistry Test 03/24/25 15:45 03/25/25 06:58 Albumin 4.6 g/dL (3.2-4.8) 4.4 g/dL (3.2-4.8) Calcium Level 10.0 mg/dL (8.7-10.4) 9.8 mg/dL (8.7-10.4) Magnesium Level 1.6 mg/dL (1.6-2.6) Total Protein 7.2 g/dL (5.7-8.2) 7.3 g/dL (5.7-8.2) Coagulation Test 03/25/25 06:58 Prothrombin Time 13.0 sec (9.3-11.8) H Prothrombin Time INR 1.25 (0.9-1.15) H Activated Partial Thromboplast Time 36.7 SEC (24.5-34.5) H Lipid panel Test 03/24/25 15:45 Lipase 30 U/L (12-53) LFT Test 03/24/25 15:45 03/25/25 06:58 Alanine Aminotransferase (ALT) 18 U/L (7-40) 13 U/L (7-40) Alkaline Phosphatase 110 U/L (46-116) 88 U/L (46-116) Aspartate Amino Transferase (AST) 16 U/L (13-40) 10 U/L (13-40) L Total Bilirubin 1.9 mg/dL (0.2-1.0) H 0.9 mg/dL (0.2-1.0) HgA1c, TSH Test 03/25/25 06:58 Hemoglobin A1c 6.0 % A1C (<5.7) H Thyroid Stimulating Hormone (TSH) 2.97 uIU/mL (0.55-4.78) Urinalysis Test 03/24/25 23:58 Urine Color Yellow (Yellow) Urine Clarity Clear (Clear) Urine pH 5.5 (5.0-9.0) Urine Specific [place] 1.018 (1.001-1.035) Urine Protein Trace (Negative) H Urine Ketones Negative (Negative) Urine Blood Negative /uL (Negative) Urine Nitrite Negative (Negative) Urine Bilirubin Negative (Negative) Urine Urobilinogen Normal mg/dL (Negative) Urine Leukocyte Esterase Negative /uL (Negative) Urine RBC None seen /hpf (0 - 3) Urine Microscopic WBC 2 /HPF (0-3) Urine Squamous Epithelial Cells None seen /hpf (<5) Urine Bacteria None seen /hpf (None Seen) Urine Glucose 4+ mg/dL (Normal) H Assessment/Plan Assessment/Plan # Chest Pain - STEMI ruled out # Acute Cholecystitis - IV Abx - MRCP - Surgical Cx # Acute Systolic vs. Diastolic CHF - Lasix IV # A-Fibb - Amio PO - F/u Dr. [place] # Obesity - Chart Computer on weight loss # Prediabetes A1c 6.0 Plan discussed with: Patient My Orders Orders - DUTCH SALCIDO MD Procedure Category Date Status Time *Consult Dr. Deven CID 03/24/25 Transmitted [place] 15:55 Date of Service: March 25, 2025 Billing Provider: DUTCH SALCIDO MD Common Visit Codes: [id number] INP/OBS CARE(HIGH) DUTCH SALCIDO MD March 25, 2025 14:37
--- NOTE | 2025-03-25 14:48 | DVH ---
MRI MRCP MRI HISTORY: dileted cbd,r/o choledocholithiasis COMPARISON: 03/25/25 PROCEDURE: Multiplanar multisequence MRI images were obtained of the abdomen without intravenous cont rast Additional MIPS were obtained of the biliary system. FINDINGS: Bile ducts: -Intrahepatic ducts: Non-dilated. -Extrahepatic ducts: Non-dilated. -Common bile duct: Non-dilated. -Filling defects: No filling defects -Stricture: None. Gallbladder: A small gallstone is seen in the gallbladder. Mild pericholycystic fluid is seen. The ga llbladder is distended. Pancreas: Pancreatic duct: No ductal dilatation. Lesions: None. Liver: Signal intensity: Homogenous. Contour: Smooth. Size: Normal. Lesions: No focal liver lesion. ADDITIONAL FINDINGS: Lung base: Mild right basilar atelectasis. Pancreas: 4 mm cyst in the pancreatic body. Spleen:Normal. Bowel: Normal. Adrenal glands:Normal. Kidneys and ureters:1.8 cm left kidney cyst. Lymph nodes:Normal. Peritoneum:Normal. Vessels: Normal. Abdominal wall: Normal. Bone: No aggressive bone lesions IMPRESSION: No choledocholithiasis. The common bile duct measures 5 mm in diameter which is normal. Distended gallbladder with gallstone and pericholycystic fluid could be seen with cholecystitis and c holelithiasis.
[2025-03-25] MEDS: LACTULOSE 20Gm/30ML SOLN PO ONE (17:11)
[2025-03-25] MEDS: HYDROcodone-ACET 5/325MG TAB PO PRN (17:12)
[2025-03-25] MEDS: ZOLPIDEM TARTRATE 5 MG TAB PO PRN (21:50)
[2025-03-25] MEDS: AMIODARONE HCL 200 MG TAB PO SCH (21:51)
[2025-03-26] VITALS (15 sets, daily range): BP systolic 93–122; BP diastolic 56–72; PULSE 57–106; RESP 16–18; TEMP 97.4–98.6; O2SAT 91–98
[2025-03-26] MEDS: cefTRIAXone 1GM/50ML D5W 50 ML IV SCH (09:45)
--- NOTE | 2025-03-26 12:23 | DVHPN2 ---
Subjective Seen and examined at bedside, patient is c/o RUQ abdominal pain. Patient is asking for Dr. Melissa Beckwith for his surgeoun. I spoke with Dr. Beckwith, will likely due surgery on Saturday. Patient wishes to wait till Saturday. Changes from previous H/P or p: No Changes Cardiovascular: No Chest Pain, No Palpitations, No Orthopnea, No Paroxysmal Noc. Dyspnea, No Edema, No Lt Headedness, No Other Gastrointestinal: Abdominal Pain Objective Vitals Vital Signs Date Time Temp Pulse Resp B/P (MAP) Pulse Ox O2 Delivery O2 Flow Rate FiO2 03/26/25 11:00 91 Nasal Cannula* 3 32 03/26/25 09:45 122/69 03/26/25 09:00 98.1 64 18 98.1 Intake/Output Intake and Output 03/26/25 07:00 Intake Total 840 ml Output Total 1590 ml Balance -750 ml Intake Oral 840 ml Output Urine Total 1590 ml # Bowel Movements 4 General Appearance: Alert, Oriented X3, Cooperative HEENT: Atraumatic Lungs: Clear to auscultation Cardiovascular: Other (irregular) Abdomen: Other (RUQ Tenderness) Psych/Mental Status: Mental status NL Medications Current Medications Medications Dose Ordered Sig/Sergio Route Start Time Stop Time Status Last Admin Dose Admin Nitroglycerin 0.4 mg Q5MINP PRN SL 03/24/25 16:45 Morphine Sulfate 2 mg Q30M PRN IV 03/24/25 16:45 Acetaminophen 500 mg Q4HPRN PRN PO 03/24/25 17:00 Acetaminophen/ Hydrocodone Bitart 1 tab Q4HPRN PRN PO 03/24/25 17:00 03/25/25 21:50 1 TAB Morphine Sulfate 1 mg Q4HPRN PRN IV 03/24/25 17:00 Enoxaparin Sodium 90 mg Q12HR SC 03/24/25 22:00 03/26/25 09:45 90 MG Carvedilol 6.25 mg Q12HR PO 03/24/25 22:00 03/25/25 21:51 6.25 MG Enalapril Maleate 5 mg DAILY PO 03/25/25 10:00 03/25/25 12:11 5 MG Furosemide 20 mg DAILY IV 03/25/25 10:00 03/26/25 09:45 20 MG Docusate Sodium 100 mg BID PO 03/24/25 22:00 03/25/25 21:50 100 MG Pantoprazole Sodium 40 mg DAILY IV 03/25/25 10:00 03/26/25 09:45 40 MG Ondansetron HCl 4 mg Q4HPRN PRN IV 03/24/25 17:30 Ipratropium [place] 0.5 mg Q6HR NEB 03/24/25 18:00 03/26/25 06:19 0.5 MG Levalbuterol HCl 1.25 mg Q6HR NEB 03/24/25 18:00 03/26/25 06:19 1.25 MG Amiodarone HCl 200 mg Q12HR PO 03/25/25 22:00 03/25/25 21:51 200 MG Ceftriaxone Sodium 50 ml @ 100 mls/hr DAILY@09 IV 03/26/25 09:00 03/26/25 09:45 100 MLS/HR Metronidazole 100 ml @ 100 mls/hr Q8HR IV 03/25/25 14:00 03/26/25 05:45 100 MLS/HR Zolpidem Tartrate 10 mg HSPRN PRN PO 03/25/25 18:30 03/25/25 21:50 10 MG Laboratory Results Laboratory Tests 03/25/25 06:58 Urinalysis Test 03/24/25 23:58 Urine Color Yellow (Yellow) Urine Clarity Clear (Clear) Urine pH 5.5 (5.0-9.0) Urine Specific [place] 1.018 (1.001-1.035) Urine Protein Trace (Negative) H Urine Ketones Negative (Negative) Urine Blood Negative /uL (Negative) Urine Nitrite Negative (Negative) Urine Bilirubin Negative (Negative) Urine Urobilinogen Normal mg/dL (Negative) Urine Leukocyte Esterase Negative /uL (Negative) Urine RBC None seen /hpf (0 - 3) Urine Microscopic WBC 2 /HPF (0-3) Urine Squamous Epithelial Cells None seen /hpf (<5) Urine Bacteria None seen /hpf (None Seen) Urine Glucose 4+ mg/dL (Normal) H Assessment/Plan Assessment/Plan # Chest Pain - STEMI ruled out # Acute Cholecystitis - IV Abx - MRCP - Surgical Cx Dr. Melissa Beckwith # Acute Systolic vs. Diastolic CHF - Lasix IV # A-Fibb - Amio PO - F/u Dr. 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 # Prediabetes A1c 6.0 Plan discussed with: Patient My Orders Orders - DUTCH SALCIDO MD Procedure Category Date Status Time Zolpidem Tartrate PHA 03/25/25 In Process (Ambien) 18:30 Npo Except Ice Chips ZURDO 03/26/25 In Process 11:30 Npo (Nothing By DIET 03/26/25 Transmitted Mouth) Diet Lunch * Surgical Consult CONS 03/26/25 Verified Comprehensive LAB 03/27/25 Verified Metabolic Panel 04:00 Partial LAB 03/27/25 Verified Thromboplastin Time 04:00 Prothrombin Time W/ LAB 03/27/25 Verified INR 04:00 Date of Service: March 26, 2025 Billing Provider: DUTCH SALCIDO MD Common Visit Codes: [id number] INP/OBS CARE(HIGH) DUTCH SALCIDO MD March 26, 2025 12:23
[2025-03-27] VITALS (14 sets, daily range): BP systolic 99–126; BP diastolic 61–74; PULSE 58–78; RESP 16–18; TEMP 97.2–98.2; O2SAT 90–98
[2025-03-27 07:48] LABS: INR 1.03 (0.9-1.15); Prothrombin Time 10.9 sec (9.3-11.8)
[2025-03-27 07:55] LABS: Alanine Aminotransferase 11 U/L (7-40); Alkaline Phosphatase 83 U/L (46-116); Anion Gap 8 (5-15); BUN/Creatinine Ratio 19.7 (10.0-20.0); Blood Urea Nitrogen 13 mg/dL (9-23); Calcium 9.7 mg/dL (8.7-10.4); Carbon Dioxide 27 mmol/L (20-31); Chloride 103 mmol/L (98-107); Glucose 94 mg/dL (74-106); Potassium 3.6 mmol/L (3.5-5.1); Sodium 138 mmol/L (136-145); Total Protein 6.7 g/dL (5.7-8.2)
[2025-03-27 07:59] LABS: Aspartate Aminotransferase 13 U/L (13-40); Bilirubin, Total 1.3 mg/dL (0.2-1.0)
[2025-03-27] MEDS: CITALOPRAM HYDROBR 20 MG TAB PO SCH (09:28)
--- NOTE | 2025-03-27 11:10 | DVHPN2 ---
Subjective Seen and examined at bedside, RUQ abdominal pain improving. Patient is asking for Dr. Melissa Beckwith for his surgeoun. I spoke with Dr. Beckwith, will likely due surgery on Saturday Patient wishes to wait. Changes from previous H/P or p: No Changes Cardiovascular: No Chest Pain, No Palpitations, No Orthopnea, No Paroxysmal Noc. Dyspnea, No Edema, No Lt Headedness, No Other Gastrointestinal: Abdominal Pain Objective Vitals Vital Signs Date Time Temp Pulse Resp B/P (MAP) Pulse Ox O2 Delivery O2 Flow Rate FiO2 03/27/25 09:28 63 109/68 03/27/25 08:30 97.4 16 90 97.4 03/27/25 07:51 Room Air* 0 21 Intake/Output Intake and Output 03/27/25 07:00 Intake Total 1150 ml Output Total 3150 ml Balance -2000 ml Intake Oral 1000 ml IV Total 150 ml Output Urine Total 3150 ml General Appearance: Alert, Oriented X3, Cooperative HEENT: Atraumatic Lungs: Clear to auscultation Cardiovascular: Other (irregular) Abdomen: Other (RUQ Tenderness) Psych/Mental Status: Mental status NL Medications Current Medications Medications Dose Ordered Sig/Sergio Route Start Time Stop Time Status Last Admin Dose Admin Nitroglycerin 0.4 mg Q5MINP PRN SL 03/24/25 16:45 Morphine Sulfate 2 mg Q30M PRN IV 03/24/25 16:45 Acetaminophen 500 mg Q4HPRN PRN PO 03/24/25 17:00 Acetaminophen/ Hydrocodone Bitart 1 tab Q4HPRN PRN PO 03/24/25 17:00 03/26/25 21:42 1 TAB Morphine Sulfate 1 mg Q4HPRN PRN IV 03/24/25 17:00 Enoxaparin Sodium 90 mg Q12HR SC 03/24/25 22:00 03/27/25 09:28 90 MG Carvedilol 6.25 mg Q12HR PO 03/24/25 22:00 03/26/25 21:43 6.25 MG Enalapril Maleate 5 mg DAILY PO 03/25/25 10:00 03/27/25 09:26 5 MG Furosemide 20 mg DAILY IV 03/25/25 10:00 03/27/25 09:27 20 MG Docusate Sodium 100 mg BID PO 03/24/25 22:00 03/27/25 09:27 100 MG Pantoprazole Sodium 40 mg DAILY IV 03/25/25 10:00 03/27/25 09:27 40 MG Ondansetron HCl 4 mg Q4HPRN PRN IV 03/24/25 17:30 Ipratropium [place] 0.5 mg Q6HR NEB 03/24/25 18:00 03/26/25 18:33 0.5 MG Levalbuterol HCl 1.25 mg Q6HR NEB 03/24/25 18:00 03/26/25 18:33 1.25 MG Amiodarone HCl 200 mg Q12HR PO 03/25/25 22:00 03/27/25 09:27 200 MG Ceftriaxone Sodium 50 ml @ 100 mls/hr DAILY@09 IV 03/26/25 09:00 03/27/25 09:27 100 MLS/HR Metronidazole 100 ml @ 100 mls/hr Q8HR IV 03/25/25 14:00 03/27/25 05:38 100 MLS/HR Zolpidem Tartrate 10 mg HSPRN PRN PO 03/25/25 18:30 03/26/25 21:42 10 MG Citalopram Hydrobromide 10 mg DAILY PO 03/27/25 10:00 03/27/25 09:28 10 MG Laboratory Results Laboratory Tests 03/25/25 06:58 03/27/25 05:56 Chemistry Test 03/27/25 05:56 Albumin 4.0 g/dL (3.2-4.8) Calcium Level 9.7 mg/dL (8.7-10.4) Total Protein 6.7 g/dL (5.7-8.2) Coagulation Test 03/27/25 05:56 Prothrombin Time 10.9 sec (9.3-11.8) Prothrombin Time INR 1.03 (0.9-1.15) Activated Partial Thromboplast Time 31.0 SEC (24.5-34.5) LFT Test 03/27/25 05:56 Alanine Aminotransferase (ALT) 11 U/L (7-40) Alkaline Phosphatase 83 U/L (46-116) Aspartate Amino Transferase (AST) 13 U/L (13-40) Total Bilirubin 1.3 mg/dL (0.2-1.0) H Urinalysis Test 03/24/25 23:58 Urine Color Yellow (Yellow) Urine Clarity Clear (Clear) Urine pH 5.5 (5.0-9.0) Urine Specific [place] 1.018 (1.001-1.035) Urine Protein Trace (Negative) H Urine Ketones Negative (Negative) Urine Blood Negative /uL (Negative) Urine Nitrite Negative (Negative) Urine Bilirubin Negative (Negative) Urine Urobilinogen Normal mg/dL (Negative) Urine Leukocyte Esterase Negative /uL (Negative) Urine RBC None seen /hpf (0 - 3) Urine Microscopic WBC 2 /HPF (0-3) Urine Squamous Epithelial Cells None seen /hpf (<5) Urine Bacteria None seen /hpf (None Seen) Urine Glucose 4+ mg/dL (Normal) H Assessment/Plan Assessment/Plan # Chest Pain - STEMI ruled out # Acute Cholecystitis - IV Abx - MRCP - Surgical Cx Dr. Melissa Beckwith # Acute Systolic vs. Diastolic CHF - Lasix IV # Chronic Resp Failure - 2-3 liters at home # A-Fibb - Amio PO - F/u Dr. 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 # Prediabetes A1c 6.0 Plan discussed with: Patient My Orders Orders - DUTCH SALCIDO MD Procedure Category Date Status Time Npo Except Ice Chips ZURDO 03/26/25 In Process 11:30 * Surgical Consult CONS 03/26/25 Transmitted Npo Except For ZURDO 03/26/25 In Process Medications 15:41 Incentive Spirometry ORDERS 03/26/25 Transmitted 16:05 Clear Liq Diet DIET 03/27/25 Transmitted Breakfast Citalopram Tablet PHA 03/27/25 In Process (Celexa Tablet) 10:00 Date of Service: March 27, 2025 Billing Provider: DUTCH SALCIDO MD Common Visit Codes: [id number] INP/OBS CARE(HIGH) DUTCH SALCIDO MD March 27, 2025 11:10
[2025-03-28] VITALS (8 sets, daily range): BP systolic 106–120; BP diastolic 6–78; PULSE 55–66; RESP 17–20; TEMP 96.7–98; O2SAT 92–95
--- NOTE | 2025-03-28 11:03 | DVHPN2 ---
Subjective Seen and examined at bedside, surgery tomorrow AM by Dr. Melissa Beckwith Changes from previous H/P or p: No Changes Cardiovascular: No Chest Pain, No Palpitations, No Orthopnea, No Paroxysmal Noc. Dyspnea, No Edema, No Lt Headedness, No Other Gastrointestinal: Abdominal Pain Objective Vitals Vital Signs Date Time Temp Pulse Resp B/P (MAP) Pulse Ox O2 Delivery O2 Flow Rate FiO2 03/28/25 10:06 120/63 03/28/25 10:06 60 03/28/25 09:00 97.5 20 92 97.5 03/28/25 07:30 Nasal Cannula* 2 28 Intake/Output Intake and Output 03/28/25 07:00 Intake Total 1550 ml Output Total 3100 ml Balance -1550 ml Intake Oral 1200 ml IV Total 350 ml Output Urine Total 3100 ml General Appearance: Alert, Oriented X3, Cooperative HEENT: Atraumatic Lungs: Clear to auscultation Cardiovascular: Other (irregular) Abdomen: Other (RUQ Tenderness) Psych/Mental Status: Mental status NL Medications Current Medications Medications Dose Ordered Sig/Sergio Route Start Time Stop Time Status Last Admin Dose Admin Nitroglycerin 0.4 mg Q5MINP PRN SL 03/24/25 16:45 Morphine Sulfate 2 mg Q30M PRN IV 03/24/25 16:45 Acetaminophen 500 mg Q4HPRN PRN PO 03/24/25 17:00 Acetaminophen/ Hydrocodone Bitart 1 tab Q4HPRN PRN PO 03/24/25 17:00 03/27/25 21:56 1 TAB Morphine Sulfate 1 mg Q4HPRN PRN IV 03/24/25 17:00 Enoxaparin Sodium 90 mg Q12HR SC 03/24/25 22:00 03/28/25 10:06 90 MG Carvedilol 6.25 mg Q12HR PO 03/24/25 22:00 03/28/25 10:06 6.25 MG Enalapril Maleate 5 mg DAILY PO 03/25/25 10:00 03/28/25 10:05 5 MG Furosemide 20 mg DAILY IV 03/25/25 10:00 03/28/25 10:06 20 MG Docusate Sodium 100 mg BID PO 03/24/25 22:00 03/28/25 10:05 100 MG Pantoprazole Sodium 40 mg DAILY IV 03/25/25 10:00 03/28/25 10:07 40 MG Ondansetron HCl 4 mg Q4HPRN PRN IV 03/24/25 17:30 Ipratropium [place] 0.5 mg Q6HR NEB 03/24/25 18:00 03/26/25 18:33 0.5 MG Levalbuterol HCl 1.25 mg Q6HR NEB 03/24/25 18:00 03/26/25 18:33 1.25 MG Amiodarone HCl 200 mg Q12HR PO 03/25/25 22:00 03/28/25 10:06 200 MG Ceftriaxone Sodium 50 ml @ 100 mls/hr DAILY@09 IV 03/26/25 09:00 03/28/25 10:05 100 MLS/HR Metronidazole 100 ml @ 100 mls/hr Q8HR IV 03/25/25 14:00 03/28/25 05:14 100 MLS/HR Zolpidem Tartrate 10 mg HSPRN PRN PO 03/25/25 18:30 03/27/25 21:56 10 MG Citalopram Hydrobromide 10 mg DAILY PO 03/27/25 10:00 03/28/25 10:06 10 MG Laboratory Results Laboratory Tests 03/25/25 06:58 03/27/25 05:56 Urinalysis Test 03/24/25 23:58 Urine Color Yellow (Yellow) Urine Clarity Clear (Clear) Urine pH 5.5 (5.0-9.0) Urine Specific [place] 1.018 (1.001-1.035) Urine Protein Trace (Negative) H Urine Ketones Negative (Negative) Urine Blood Negative /uL (Negative) Urine Nitrite Negative (Negative) Urine Bilirubin Negative (Negative) Urine Urobilinogen Normal mg/dL (Negative) Urine Leukocyte Esterase Negative /uL (Negative) Urine RBC None seen /hpf (0 - 3) Urine Microscopic WBC 2 /HPF (0-3) Urine Squamous Epithelial Cells None seen /hpf (<5) Urine Bacteria None seen /hpf (None Seen) Urine Glucose 4+ mg/dL (Normal) H Assessment/Plan Assessment/Plan # Chest Pain - STEMI ruled out # Acute Cholecystitis - IV Abx - MRCP - Surgical Cx Dr. Melissa Beckwith # Acute Systolic vs. Diastolic CHF - Lasix IV # Chronic Resp Failure - 2-3 liters at home # A-Fibb - Amio PO - F/u Dr. [place] # Obesity - Flight Agent on weight loss # Prediabetes A1c 6.0 Plan discussed with: Patient Date of Service: Mar 28, 2025 Billing Provider: DUTCH SALCIDO MD Common Visit Codes: [id number] INP/OBS CARE(HIGH) DUTCH SALCIDO MD Mar 28, 2025 11:03
--- NOTE | 2025-03-28 18:17 | DVHINCON2 ---
Date of service: Mar 28, 2025 Family History: Cardiovascular disease G8 FATHER, Malignant neoplasm of breast G8 MOTHER, (BREAST CANCER) Allergies: Coded Allergies: Penicillins (Verified Allergy, Unknown, 09/22/18) Shellfish Allergy (Verified Allergy, Unknown, 09/22/18) Home Meds Active Scripts Furosemide (Lasix) 20 Mg Tb, 1 TAB PO DAILY, #90 TAB 1 Refill Prov:JOVI FIGUEROA MD 04/17/23 Enalapril Maleate (Enalapril Maleate) 5 Mg Tab, 1 TAB PO DAILY, #90 TAB 1 Refill Prov:JOVI FIGUEROA MD 04/17/23 Carvedilol (Coreg) 3.125 Mg Tab, 1 TAB PO BID, #180 TAB 3 Refills Prov:JOVI FIGUEROA MD 04/17/23 Dapagliflozin Propanediol (Farxiga) 10 Mg Tab, 10 MG PO DAILY, #90 TAB Prov:JOVI FIGUEROA MD 04/17/23 Atorvastatin Calcium (Lipitor) 40 Mg Tab, 1 TAB PO QPM, #90 TAB 1 Refill Prov:JOVI FIGUEROA MD 04/17/23 Amiodarone Hcl (Amiodarone Hcl) 200 Mg Tab, 1 TAB PO BID, #180 TAB 1 Refill Prov:JOVI FIGUEROA MD 04/17/23 Rivaroxaban (XARELTO) 20 Mg Tab, 1 TAB PO DAILY, #90 TAB 3 Refills Prov:JOVI FIGUEROA MD 04/17/23 Reported Medications Escitalopram Oxalate (ESCITALOPRAM OXALATE) 10 Mg Tab, 1 TAB PO DAILY, #30 TAB 3 Refills 03/25/25 Pantoprazole Sodium (PANTOPRAZOLE SODIUM) 40 Mg Inj, 40 MG PO, INJ 03/25/25 Levothyroxine Sodium (SYNTHROID TABLET) 50 Mcg Tb, 1 TAB PO DAILY, #30 TAB 5 Refills 03/25/25 Zolpidem Tartrate (Zolpidem Tartrate) 10 Mg Tab, 1 TAB PO QPM, #30 TAB 2 Refills 03/25/25 Carvedilol (Carvedilol) 3.125 Mg Tab, 1 TAB PO BID, #60 TAB 3 Refills 04/15/23 Furosemide (Furosemide) 20 Mg Tab, 1 TAB PO DAILY, #90 TAB 1 Refill 04/15/23 Vital Signs Vital Signs Date Time Temp Pulse Resp B/P (MAP) Pulse Ox O2 Delivery O2 Flow Rate FiO2 03/28/25 17:00 97.0 59 18 114/73 (87) 95 97.0 03/28/25 10:30 Nasal Cannula* 2 28 Labs/Diagnostic Data Labs Test 03/27/25 05:56 03/25/25 06:58 03/24/25 23:58 03/24/25 15:45 Range/Units Prothrombin Time 10.9 9.3-11.8 sec Prothrombin Time INR 1.03 0.9-1.15 Activated Partial Thromboplast Time 31.0 24.5-34.5 SEC Sodium Level 138 136-145 mmol/L Potassium Level 3.6 3.5-5.1 mmol/L Chloride Level 103 98-107 mmol/L Carbon Dioxide Level 27 20-31 mmol/L Anion Gap 8 5-15 Blood Urea Nitrogen 13 9-23 mg/dL Creatinine 0.66 L 0.700-1.30 mg/dL Glomerular Filtration Rate Calc 107 >90 mL/min BUN/Creatinine Ratio 19.7 10.0-20.0 Serum Glucose 94 74-106 mg/dL Calcium Level 9.7 8.7-10.4 mg/dL Total Bilirubin 1.3 H 0.2-1.0 mg/dL Aspartate Amino Transferase (AST) 13 13-40 U/L Alanine Aminotransferase (ALT) 11 7-40 U/L Alkaline Phosphatase 83 46-116 U/L Total Protein 6.7 5.7-8.2 g/dL Albumin 4.0 3.2-4.8 g/dL White Blood Count 11.2 H 4.4-10.8 10^3/uL Red Blood Count 5.57 4.5-5.90 10^6/uL Hemoglobin 18.6 H 13.5-17.5 g/dL Hematocrit 54.3 H 41.0-53.0 % Mean Corpuscular Volume 97.5 80.0-100.0 fL Mean Corpuscular Hemoglobin 33.5 H 28.0-32.0 pg Mean Corpuscular Hemoglobin Concent 34.3 32.0-36.0 g/dL Red Cell Distribution Width 14.8 H 11.8-14.3 % Platelet Count 170 140-450 10^3/uL Mean Platelet Volume 8.5 6.9-10.8 fL Neutrophils (%) (Auto) 75.5 37.0-80.0 % Lymphocytes (%) (Auto) 13.0 10.0-50.0 % Monocytes (%) (Auto) 11.4 0.0-12.0 % Eosinophils (%) (Auto) 0.0 0.0-7.0 % Basophils (%) (Auto) 0.1 0.0-2.0 % Neutrophils # (Auto) 8.5 1.6-8.6 10 ^3/uL Lymphocytes # (Auto) 1.5 0.4-5.4 10 ^3/uL Monocytes # (Auto) 1.3 0-1.3 10 ^3/uL Eosinophils # (Auto) 0 0-0.8 10 ^3/uL Basophils # (Auto) 0 0-0.2 10 ^3/uL Nucleated Red Blood Cells 0.0 % Hemoglobin A1c 6.0 H <5.7 % A1C Vitamin B12 Level 345 211-911 pg/mL Vitamin D 25-Hydroxy 40.8 30.0-100 ng/mL Thyroid Stimulating Hormone (TSH) 2.97 0.55-4.78 uIU/mL Urine Color Yellow Yellow Urine Clarity Clear Clear Urine pH 5.5 5.0-9.0 Urine Specific [place] 1.018 1.001-1.035 Urine Protein Trace H Negative Urine Ketones Negative Negative Urine Blood Negative Negative /uL Urine Nitrite Negative Negative Urine Bilirubin Negative Negative Urine Urobilinogen Normal Negative mg/dL Urine Leukocyte Esterase Negative Negative /uL Urine RBC None seen 0 - 3 /hpf Urine Microscopic WBC 2 0-3 /HPF Urine Squamous Epithelial Cells None seen <5 /hpf Urine Bacteria None seen None Seen /hpf Urine Glucose 4+ H Normal mg/dL Urine Opiates Screen Neg NEGATIVE Urine Fentanyl Screen Pos NEGATIVE Urine Barbiturates Screen Neg NEGATIVE Urine Phencyclidine Screen Neg NEGATIVE Urine Amphetamines Screen Neg NEGATIVE Urine Benzodiazepines Screen Pos NEGATIVE Urine Cocaine Screen Neg NEGATIVE Urine Cannabinoids Screen Neg NEGATIVE Erythrocyte Sedimentation Rate 4 0-20 mm/hr Magnesium Level 1.6 1.6-2.6 mg/dL C-Reactive Protein High Sensitivity 5.32 H <1.0 mg/dL Lipase 30 12-53 U/L Assessment [id number] C/O RUQ PAIN NOW RESOLVED AFEBRILE VSS AABD SOFT NON TENDER RESOLVING BILIARY COLIC HIGH RISK FOR SURGERY SEC TO CHF, COPD, LIVER CIRRHOSIS PT AWARE CONSIDER EMERGENT SURGERY BASED ON ONGOING EVAL PT TO DECIDE CONTINUE CLOSE OBSERVATION NURSE AT BEDSIDE Plan discussed with: Patient SANDRITA CONTRERAS MD Mar 28, 2025 18:17
--- NOTE | 2025-03-28 22:35 | DVHINCON2 ---
DATE OF CONSULTATION: 03/28/2025 HISTORY OF PRESENT ILLNESS: The patient is 59 years old, coming in with right upper quadrant pain, now feeling much better. Pain is almost all resolved. No nausea or vomiting. No constipation or diarrhea. No hematemesis or melena. No bleeding per rectum. Past medical history significant for systolic CHF. His ejection fraction is only 25%. He has COPD. He is on oxygen. He has inguinal hernia repair done. He has atrial fibrillation and he has been on blood thinners as well. He had a DC cardioversion. He also has constipation, but now that he is passing gas, constipation seemingly has resolved. PAST MEDICAL HISTORY: As above. PAST SURGICAL HISTORY: Three hernia surgeries in the past with tonsillectomy and no complications from those. MEDICATIONS: Including Xarelto, amiodarone, atorvastatin, Coreg, Farxiga, enalapril, furosemide. PHYSICAL EXAMINATION: VITAL SIGNS: Afebrile, stable signs. HEENT: With no evidence of pallor, cyanosis or jaundice. NECK: Supple and nontender with no thyromegaly. No lymphadenopathy. CHEST AND LUNGS: Clear. HEART: Within normal limits. ABDOMEN: Soft, nontender. No rebound. EXTREMITIES: Unremarkable. NEUROLOGIC: Intact. Clinical impression is resolving biliary colic with possible chronic cholecystitis. His liver enzymes are within normal limits excepting mild elevation of T-bili, which is 1.3. White cell count is 11.2 as of 03/25. His PT/PTT is within normal limits. His imaging shows gallbladder wall mild thickness. Cholelithiasis. Negative for sonographic Adamson's sign. MRCP is negative for a CBD stone and a CT of the abdomen and pelvis is also confirming cholelithiasis and finding of cirrhosis has been documented as per the CAT scan. CLINICAL IMPRESSION: Resolving biliary colic, possible symptomatic cholelithiasis. At this point, his biliary colic is resolved and he is high risk for surgery. He has a cardiac risk and he has got liver cirrhosis and the benefits and risks have been discussed and the patient has been on blood thinners also, so there is a risk of bleeding as well, so the plan will be to continue close observation and consider emergent surgery based upon ongoing evaluation. In the meantime, the patient has to decide on his possibility of surgery based upon the information given to him. At this point, the plan is to consider surgery based upon ongoing evaluation and patient's decision. MD ABHAY Eugene/MIRELLA/GERARDO/TRIP TID: [id number] RECEIPT: [id number] cc: DUTCH SALCIDO M.D.
--- NOTE | 2025-03-31 13:33 | DVHDS2 ---
Discharge Summary Date of Admission March 24, 2025 at 16:34 Date of Discharge: Mar 28, 2025 Admitting Diagnosis Chest Pain Labs/Diagnostic Data: Laboratory Results Test 03/27/25 05:56 03/25/25 06:58 03/24/25 23:58 03/24/25 15:45 Prothrombin Time 10.9 sec (9.3-11.8) Prothrombin Time INR 1.03 (0.9-1.15) Activated Partial Thromboplast Time 31.0 SEC (24.5-34.5) Sodium Level 138 mmol/L (136-145) Potassium Level 3.6 mmol/L (3.5-5.1) Chloride Level 103 mmol/L (98-107) Carbon Dioxide Level 27 mmol/L (20-31) Anion Gap 8 (5-15) Blood Urea Nitrogen 13 mg/dL (9-23) Creatinine 0.66 mg/dL (0.700-1.30) Glomerular Filtration Rate Calc 107 mL/min (>90) BUN/Creatinine Ratio 19.7 (10.0-20.0) Serum Glucose 94 mg/dL (74-106) Calcium Level 9.7 mg/dL (8.7-10.4) Total Bilirubin 1.3 mg/dL (0.2-1.0) Aspartate Amino Transferase (AST) 13 U/L (13-40) Alanine Aminotransferase (ALT) 11 U/L (7-40) Alkaline Phosphatase 83 U/L (46-116) Total Protein 6.7 g/dL (5.7-8.2) Albumin 4.0 g/dL (3.2-4.8) White Blood Count 11.2 10^3/uL (4.4-10.8) Red Blood Count 5.57 10^6/uL (4.5-5.90) Hemoglobin 18.6 g/dL (13.5-17.5) Hematocrit 54.3 % (41.0-53.0) Mean Corpuscular Volume 97.5 fL (80.0-100.0) Mean Corpuscular Hemoglobin 33.5 pg (28.0-32.0) Mean Corpuscular Hemoglobin Concent 34.3 g/dL (32.0-36.0) Red Cell Distribution Width 14.8 % (11.8-14.3) Platelet Count 170 10^3/uL (140-450) Mean Platelet Volume 8.5 fL (6.9-10.8) Neutrophils (%) (Auto) 75.5 % (37.0-80.0) Lymphocytes (%) (Auto) 13.0 % (10.0-50.0) Monocytes (%) (Auto) 11.4 % (0.0-12.0) Eosinophils (%) (Auto) 0.0 % (0.0-7.0) Basophils (%) (Auto) 0.1 % (0.0-2.0) Neutrophils # (Auto) 8.5 10 ^3/uL (1.6-8.6) Lymphocytes # (Auto) 1.5 10 ^3/uL (0.4-5.4) Monocytes # (Auto) 1.3 10 ^3/uL (0-1.3) Eosinophils # (Auto) 0 10 ^3/uL (0-0.8) Basophils # (Auto) 0 10 ^3/uL (0-0.2) Nucleated Red Blood Cells 0.0 % Hemoglobin A1c 6.0 % A1C (<5.7) Vitamin B12 Level 345 pg/mL (211-911) Vitamin D 25-Hydroxy 40.8 ng/mL (30.0-100) Thyroid Stimulating Hormone (TSH) 2.97 uIU/mL (0.55-4.78) Urine Color Yellow (Yellow) Urine Clarity Clear (Clear) Urine pH 5.5 (5.0-9.0) Urine Specific [place] 1.018 (1.001-1.035) Urine Protein Trace (Negative) Urine Ketones Negative (Negative) Urine Blood Negative /uL (Negative) Urine Nitrite Negative (Negative) Urine Bilirubin Negative (Negative) Urine Urobilinogen Normal mg/dL (Negative) Urine Leukocyte Esterase Negative /uL (Negative) Urine RBC None seen /hpf (0 - 3) Urine Microscopic WBC 2 /HPF (0-3) Urine Squamous Epithelial Cells None seen /hpf (<5) Urine Bacteria None seen /hpf (None Seen) Urine Glucose 4+ mg/dL (Normal) Urine Opiates Screen Neg (NEGATIVE) Urine Fentanyl Screen Pos (NEGATIVE) Urine Barbiturates Screen Neg (NEGATIVE) Urine Phencyclidine Screen Neg (NEGATIVE) Urine Amphetamines Screen Neg (NEGATIVE) Urine Benzodiazepines Screen Pos (NEGATIVE) Urine Cocaine Screen Neg (NEGATIVE) Urine Cannabinoids Screen Neg (NEGATIVE) Erythrocyte Sedimentation Rate 4 mm/hr (0-20) Magnesium Level 1.6 mg/dL (1.6-2.6) C-Reactive Protein High Sensitivity 5.32 mg/dL (<1.0) Lipase 30 U/L (12-53) Other Laboratory Tests 03/27/25 05:56 03/25/25 06:58 Brief Hx & Hospital Course: This is a 59-year-old man who presented to the [facility] urgent care clinic with a chief complaint of chest pain for two days. Describes his chest pain as substernal, nonradiating, tightness like, radiating to his back, and associated with RUQ abd pain, nausea and constipation for which the patient was taking a laxative OTC. He presented to the urgent care clinic undergoing a 12 lead electrocardiogram revealing a flutter rhythm with bigeminal PVCs with provider calling a Code STEMI. 12 lead electrocardiogram sent to on-call STEMI refrigerator tester, Dr. Stephens, cancelling the code. Patient continued to have abdominal pain also, diagnosed with Acute Cholecystitis, was scheduled for Lap [place]. However, patient left AMA. Condition at Discharge: Poor Final Diagnosis/Problems List # Chest Pain - STEMI ruled out # Acute Cholecystitis - IV Abx - MRCP - Surgical Cx Dr. Melissa Beckwith # Acute Systolic vs. Diastolic CHF - Lasix # Chronic Resp Failure - 2-3 liters at home # A-Fibb - Amio PO - F/u Dr. [place] # Obesity - [place] Ragger on weight loss # Prediabetes A1c 6.0 Discharge Disposition: Home Discharge Instruct/Medications Diet: Regular Activity: Light activity Discharge Statement: "Patient was advised to return to the ER or call 911 if any headaches, dizziness, shortness of breath, chest pain, abdominal pain, bleeding, fevers, or worsening of medical condition. Patient was counseled about treatment plan, medications, possible side effects, patientverbalized understanding. All questions were answered to the best of my ability. This discharge took greater then 30 minutes in planning, reviewing documentation, counseling the patient, and discussing with other team members." ASSESSMENT ASSESSMENT Assessment Date of Service: Mar 28, 2025 Billing Provider: DUTCH SALCIDO MD Common Visit Codes: [id number] DISCH DAY >30min DUTCH SALCIDO MD Mar 31, 2025 13:33
== END 2025-03-28 19:00 | disposition left against medical advice (07) | DRG 192 ==
LOC: ER 15:52 → OVERFLOW 16:34 → TELE-CENTR 21:19
PROVIDERS: ADMIT Internal Medicine; ATTEND Internal Medicine
PROC: 4A023N7 Measurement of Cardiac Sampling and Pressure, Left Heart, Percutaneous Approach (ICD-10-PCS; principal; 2025-03-24)
PROC: B211YZZ Fluoroscopy of Multiple Coronary Arteries using Other Contrast (ICD-10-PCS; 2025-03-24)
PROC: B215YZZ Fluoroscopy of Left Heart using Other Contrast (ICD-10-PCS; 2025-03-24)
DX: I11.0 Hypertensive heart disease with heart failure (principal); J96.21 Acute and chronic respiratory failure with hypoxia; I42.8 Other cardiomyopathies; K81.0 Acute cholecystitis; I48.11 Longstanding persistent atrial fibrillation; I48.92 Unspecified atrial flutter; I50.43 Acute on chronic combined systolic (congestive) and diastolic (congestive) heart failure; I25.10 Atherosclerotic heart disease of native coronary artery without angina pectoris; E66.9 Obesity, unspecified; E78.5 Hyperlipidemia, unspecified; J44.9 Chronic obstructive pulmonary disease, unspecified; R73.03 Prediabetes; F17.210 Nicotine dependence, cigarettes, uncomplicated; F15.90 Other stimulant use, unspecified, uncomplicated; Z53.29 Procedure and treatment not carried out because of patient's decision for other reasons; I44.30 Unspecified atrioventricular block; Z82.49 Family history of ischemic heart disease and other diseases of the circulatory system; Z88.0 Allergy status to penicillin; Z91.013 Allergy to seafood; Z80.3 Family history of malignant neoplasm of breast; Z90.49 Acquired absence of other specified parts of digestive tract; Z79.899 Other long term (current) drug therapy; Z68.29 Body mass index [BMI] 29.0-29.9, adult
CPT/HCPCS: 36415; 71045; 74176; 74181; 76705; 80053; 80307; 81001; 82306; 82607; 83036; 83690; 83735; 84443; 85025; 85610; 85652; 85730; 86141; 93005; 93306; 93458; 94640; 96372; 96374; 99152; 99291; G0378; J2250; J2470; J3490; Q9967

== ENCOUNTER 2025-07-12 12:19 | Inpatient (IN) | payer MEDICAID ==
[~2025-07-12] VITALS: Ht 172.7 cm; Wt 90.0 kg
[~2025-07-12 12:19] MED LIST changes: -ACE3T PO; -CYCL-837 PO; +ESCI1TAB36 PO; -FORM1POW2 XX; +LEVO-848 PO; -LEVO500T91 PO; +PANT1INJ3 PO; -VARE1TAB12 PO; +ZOLP10TA6 PO
[2025-07-12] MEDS ORDERED: ONDANSETRON HCL 4 MG/2 ML VIAL IV ONE (13:00)
[2025-07-12] MEDS ORDERED: MORPHINE SULFATE 4 MG/ML SYR/VIAL IV ONE (13:00)
--- NOTE | 2025-07-12 13:04 | ED.PDOC ---
GI ASSESSMENT HPI Comments 59y M with a history of CAD, AFib, CHF, COPD on home O2, gallstones, prior cholecystitis, diverticular disease, presents to the ED for chief complaint of right-sided abdominal pain. Pt states he has been having RLQ pain for the past 3x days. Pt states the pain is constant, non-radiating, with no noted exacerbating or relieving factors. Pt reports associated fever and diarrhea. Pt states he took fiber supplement and lactulose as he thought he may have had an intestinal blockage but states it has not helped. Pt states he otherwise has not eaten in the past 3 days. Pt states he does have history of diverticulitis and cholecystitis. Pt states he has follow up with GI specialist in September. Pt has noted BP of 153/79 and 02 sat of 91% on room air but otherwise stable vitals with temp of 98.0 F, heart rate 92 and rr 20. Pt otherwise denies any other symptoms at this time. Chief Complaint: Abdominal Pain Time Seen by MD: 13:00 Primary Care Provider: GAYE/EULA Reviewed Notes: Medications, Allergies Allergies: Coded Allergies: Penicillins (Verified Allergy, Unknown, 09/22/18) Shellfish Allergy (Verified Allergy, Unknown, 09/22/18) Home Meds Active Scripts Furosemide (Lasix) 20 Mg Tb, 1 TAB PO DAILY, #90 TAB 1 Refill Prov:JOVI FIGUEROA MD 04/17/23 Enalapril Maleate (Enalapril Maleate) 5 Mg Tab, 1 TAB PO DAILY, #90 TAB 1 Refill Prov:JOVI FIGUEROA MD 04/17/23 Carvedilol (Coreg) 3.125 Mg Tab, 1 TAB PO BID, #180 TAB 3 Refills Prov:JOVI FIGUEROA MD 04/17/23 Dapagliflozin Propanediol (Farxiga) 10 Mg Tab, 10 MG PO DAILY, #90 TAB Prov:JOVI FIGUEROA MD 04/17/23 Atorvastatin Calcium (Lipitor) 40 Mg Tab, 1 TAB PO QPM, #90 TAB 1 Refill Prov:JOVI FIGUEROA MD 04/17/23 Amiodarone Hcl (Amiodarone Hcl) 200 Mg Tab, 1 TAB PO BID, #180 TAB 1 Refill Prov:JOVI FIGUEROA MD 04/17/23 Rivaroxaban (XARELTO) 20 Mg Tab, 1 TAB PO DAILY, #90 TAB 3 Refills Prov:JOVI FIGUEROA MD 04/17/23 Reported Medications Escitalopram Oxalate (ESCITALOPRAM OXALATE) 10 Mg Tab, 1 TAB PO DAILY, #30 TAB 3 Refills 03/25/25 Pantoprazole Sodium (PANTOPRAZOLE SODIUM) 40 Mg Inj, 40 MG PO, INJ 03/25/25 Levothyroxine Sodium (SYNTHROID TABLET) 50 Mcg Tb, 1 TAB PO DAILY, #30 TAB 5 Refills 03/25/25 Zolpidem Tartrate (Zolpidem Tartrate) 10 Mg Tab, 1 TAB PO QPM, #30 TAB 2 Refills 03/25/25 Carvedilol (Carvedilol) 3.125 Mg Tab, 1 TAB PO BID, #60 TAB 3 Refills 04/15/23 Furosemide (Furosemide) 20 Mg Tab, 1 TAB PO DAILY, #90 TAB 1 Refill 04/15/23 Information Source: Patient, Spouse Mode of Arrival: Ambulatory Past Medical History PAST MEDICAL HISTORY: AFIB, CHF, COPD, Gallstones Past Medical History (Other): Diverticular disease, CHF. COPD. atrial fibrillation Surgical History: Appendectomy, Hernia Repair, Tonsillectomy Family History Family History: Unknown Social History Smoker: Cigarettes Alcohol: Denies ETOH Use Drugs: Denies Drug Use Lives In: Home All Other Systems: Reviewed and Negative (see HPI) Physical Exam General Appearance: Mild Distress, Obese HEENT: Other (Pupils and face symmetric. Moist mucous membranes.) Neck: Full Range of Motion, Normal Inspection Respiratory: Lungs Clear, No Accessory Muscle Use, No Respiratory Distress, Normal Breath Sounds Cardiovascular: No Edema, No JVD, Regular Rate/Rhythm Breast Exam: Deferred Gastrointestinal: RLQ, RUQ, Soft, Tenderness Genitalia: Deferred Pelvic: Deferred Rectal: Deferred Extremities: Normal range of motion, Non-tender Neurologic: Alert (Oriented x4), Normal Affect, Normal Mood Cerebellar Function: NOT DONE Reflexes: NOT DONE Skin: Dry, Pallor, Warm Lymphatic: NOT DONE Was a procedure done? Was a procedure done?: No GI differential Dx Differential Diagnosis: Bowel Obstruction, Cholecystitis, Constipation, Diverticular disease, Gastritis/PUD, Gastroenteritis, Inflammatory BD, Ischemic Bowel, Pancreatitis, UTI, Dehydration, Electrolyte Imbalance, Food Poisoning, Bacterial, Viral, Hypovolemia, Anemia, Stress Ulcer, Kidney Stone Other Differential Diagnosis colitis, X-Ray, Labs, Meds, VS Vital Signs Date Time Temp Pulse Resp B/P (MAP) Pulse Ox O2 Delivery O2 Flow Rate FiO2 07/12/25 12:34 91 07/12/25 12:22 98.0 92 20 153/79 91 98.0 Lab Test 07/12/25 13:19 07/12/25 12:49 Range/Units White Blood Count 14.6 H 4.4-10.8 10^3/uL Red Blood Count 4.82 4.5-5.90 10^6/uL Hemoglobin 16.2 13.5-17.5 g/dL Hematocrit 47.4 41.0-53.0 % Mean Corpuscular Volume 98.5 80.0-100.0 fL Mean Corpuscular Hemoglobin 33.7 H 28.0-32.0 pg Mean Corpuscular Hemoglobin Concent 34.2 32.0-36.0 g/dL Red Cell Distribution Width 14.4 H 11.8-14.3 % Platelet Count 149 140-450 10^3/uL Mean Platelet Volume 8.5 6.9-10.8 fL Neutrophils (%) (Auto) 86.9 H 37.0-80.0 % Lymphocytes (%) (Auto) 5.1 L 10.0-50.0 % Monocytes (%) (Auto) 7.6 0.0-12.0 % Eosinophils (%) (Auto) 0.1 0.0-7.0 % Basophils (%) (Auto) 0.3 0.0-2.0 % Neutrophils # (Auto) 12.6 H 1.6-8.6 10 ^3/uL Lymphocytes # (Auto) 0.7 0.4-5.4 10 ^3/uL Monocytes # (Auto) 1.1 0-1.3 10 ^3/uL Eosinophils # (Auto) 0 0-0.8 10 ^3/uL Basophils # (Auto) 0 0-0.2 10 ^3/uL Nucleated Red Blood Cells 0.0 % Sodium Level 127 L 136-145 mmol/L Potassium Level 3.7 3.5-5.1 mmol/L Chloride Level 96 L 98-107 mmol/L Carbon Dioxide Level 23 20-31 mmol/L Anion Gap 8 5-15 Blood Urea Nitrogen 13 9-23 mg/dL Creatinine 0.74 0.700-1.30 mg/dL Glomerular Filtration Rate Calc 103 >90 mL/min BUN/Creatinine Ratio 17.6 10.0-20.0 Serum Glucose 103 74-106 mg/dL Lactic Acid Level 1.2 0.4-2.0 mmol/L Calcium Level 8.7 8.7-10.4 mg/dL Total Bilirubin 1.5 H 0.2-1.0 mg/dL Aspartate Amino Transferase (AST) 21 13-40 U/L Alanine Aminotransferase (ALT) 11 7-40 U/L Alkaline Phosphatase 86 46-116 U/L B-Type Natriuretic Peptide 34.45 0-100 pg/mL Total Protein 6.9 5.7-8.2 g/dL Albumin 3.9 3.2-4.8 g/dL Lipase 28 12-53 U/L Urine Color Light-orange Yellow Urine Clarity Clear Clear Urine pH 5.5 5.0-9.0 Urine Specific [place] 1.026 1.001-1.035 Urine Protein 1+ H Negative Urine Ketones Negative Negative Urine Blood Trace H Negative /uL Urine Nitrite Negative Negative Urine Bilirubin Negative Negative Urine Urobilinogen 3 H Negative mg/dL Urine Leukocyte Esterase Negative Negative /uL Urine RBC 2 0 - 3 /hpf Urine Microscopic WBC 2 0-3 /HPF Urine Squamous Epithelial Cells None seen <5 /hpf Urine Bacteria None seen None Seen /hpf Urine Mucus Few None Seen Urine Glucose 3+ H Normal mg/dL [place] [id number] Ph: [phone] DIAGNOSTIC IMAGING Diagnostic Imaging Report : [id number] Signed PATIENT: MILI PETE ACCT: [id number] UNIT: [id number] : 1965 LOC: ER ROOM / BED: / AGE / SEX: 59 / M ADM STATUS: REG ER SERVICE [id number] ORDERING PHYSICIAN: GWENDOLYN OROURKE MD PROCEDURE(s): ABPL - CT AB PEL WO CON-NO ORAL OR IV REASON: RLQ pain n/v/d ORDER NUMBER(s): [id number], ACCESSION NUMBER(s): [id number] Exam: CT CT AB PEL WO CON-NO ORAL OR IV History: RLQ pain n/v/d Comparison Study: CT CHEST WO on DOS: 05/03/25, CT CT AB PEL WO CON-NO ORAL OR IV on DOS: 03/25/25, US LIVER on DOS: 03/24/25 TECHNIQUE: Multidetector CT of the abdomen was performed from lung bases to pubic symphysis. Imaging was performed without IV contrast. Axial, coronal and sagittal multiplanar reformats were obtained from the axial data set by the technologist. Radiation Dose Information: CT Dose: CTDI volume is 16.9 mGy. Dose-length product is 1008.1 mGy*cm FINDINGS: Evaluation of solid organs is limited due to lack of intravenous contrast use. Findings: Lung Bases: No acute or significant lung base finding. Normal heart size. No pleural or pericardial effusion. Liver: The liver is normal in size. No focal lesions. Gallbladder and Biliary Tree: Cholelithiasis with mild gallbladder wall thickening (6-7 mm) and inflammatory stranding around the gallbladder. Consider gallbladder ultrasound for further evaluation. Spleen: Unremarkable Pancreas: The pancreas is grossly normal in appearance. Adrenal Glands: Unremarkable Kidneys: Punctate calculus left kidney no hydronephrosis. 2 small punctate calculi right kidney no hydronephrosis. Bladder: Grossly unremarkable for degree of distention. Bowel: The stomach is grossly normal in appearance. Small bowel and colon are normal in caliber and distribution. The appendix is not visualized; however, no secondary findings of acute appendicitis identified. Ascites: Absent Lymphadenopathy: No mesenteric, retroperitoneal or periportal lymphadenopathy. Abdominal Wall and Mesentery: Unremarkable. Vasculature: The visualized abdominal aorta is normal in size and caliber. Evaluation of abdominal and pelvic vessels is limited due to lack of intravenous contrast. Pelvic Organs: Unremarkable Musculoskeletal: No aggressive focal bony lesions, acute fractures or dislocation. Soft tissues: Unremarkable IMPRESSION: 1. Appendix not visualized. 2. Cholelithiasis with mild gallbladder wall thickening measuring 6-7 mm. There is also mild pericolic stranding suggesting inflammatory changes. Consider ultrasound for further evaluation. 3. Bilateral nephrolithiasis without hydronephrosis. 4. No bladder calculi. Radiation optimization: All CT scans at this facility use at least one of these dose optimization techniques: automated exposure control mA and/or kV adjustment per patient size (includes targeted exams where dose is matched to clinical indication) or iterative reconstruction. ATED BY: DIANA BUCHANAN Jr., DO DICTATED DATE/TIME: 07/12/251335 SIGNED BY: DIANA BUCHANAN Jr., SIGNED DATE/TIME: 07/12/251335 CC: X-Ray, Labs, Meds, VS Comment 59y M with a history of CAD, AFib, CHF, COPD on home O2, gallstones, prior cholecystitis, diverticular disease, presents to the ED for chief complaint of right-sided abdominal pain nausea, vomiting and diarrhea Vitals remarkable for BP 153/79, oxygen saturation 91% on oxygen Exam remarkable for right-sided abdominal tenderness to palpation Rhythm strip independently interpreted by me: Sinus rhythm, rate 2, no ectopy. CT abdomen and pelvis Cholelithiasis with mild gallbladder wall thickening measuring 6-7 mm. There is also mild pericolic stranding suggesting inflammatory changes. Consider ultrasound for further evaluation. Upper quadrant ultrasound pending CBC remarkable for WBC 14.6, CMP remarkable for sodium 127, chloride 96, total bili 1.5, lactate and lipase normal, UA positive for protein, blood, bili and glucose Patient treated with the following in the ED: Morphine 4 mg IV, Zofran 4 mg IV, Levaquin 500 mg IV, Flagyl 500 mg IV On re-evaluation, pain has improved. Vitals were stable. Patient was admitted in February of 2025 with similar complaints, was evaluated by Dr. Beckwith and was found to be a risky surgical candidate. Plan is to admit the patient for IV antibiotics and surgical re-evaluation. Time of 1ST Reevaluation: 15:00 Reevaluation 1ST: Improved Patient Education/Counseling: Diagnosis, Treatment Family Education/Counseling: Diagnosis, Treatment SEPSIS Sepsis Screen Date sepsis recognized/suspect: Jul 12, 2025 Time Sepsis recognized/suspect: 1222 Recent Procedure: No On Antibiotic Therapy: No Respiratory Rate >20: No Heart Rate >90: Yes Temp<36 C (96.8 F) or >38.3 C: No SBP <90 or MAP <65 mmHG: No New Acute Mental Status Change: No Is the patient on CPAP, BIPAP,: No SEPSIS EXCLUSION NOTE: Sepsis Exclusion Note: Patient presents with SIRS criteria, but the SIRS response is attributed to [pain ], not sepsis. Sepsis bundle is not initiated at this time, due to this reason. Further management will focus on the treatment of the above condition (s). Physician Orders Electrocardigram (07/12/25 12:41) Ct Ab Pel Wo Con-No Oral Or Iv (07/12/25 12:49) Blood Culture (07/12/25 12:49) Vital Signs Date Time Temp Pulse Resp B/P (MAP) Pulse Ox O2 Delivery O2 Flow Rate FiO2 07/12/25 12:34 91 07/12/25 12:22 98.0 92 20 153/79 91 98.0 Laboratory Tests Test 07/12/25 13:19 Lactic Acid Level 1.2 mmol/L (0.4-2.0) White Blood Count 14.6 10^3/uL (4.4-10.8) H Departure 1 Departure Time of Disposition: 14:59 Impression: Primary Impression: Acute cholecystitis Disposition: ADMITTED INPATIENT Admit to: Tele Condition: Guarded Critical Care Note Critical Care Time?: No Stability Stability form required: No Heart Score Heart Score: Heart Score Response (Comments) Value History N/A 0 EKG N/A 0 Age N/A 0 Risk Factors N/A 0 Troponin N/A 0 Total 0 I personally scribed for GWENDOLYN OROURKE MD ([email or web address]) on 07/12/25 at 13:04. Electronically submitted by Arash Nails ([facility]). I personally scribed for GWENDOLYN OROURKE MD) on 07/12/25 at 14 :30. Electronically submitted by Arash Nails ([facility]). GWENDOLYN OROURKE MD Jul 12, 2025 13:04
--- NOTE | 2025-07-12 13:39 | DVH ---
Exam: CT CT AB PEL WO CON-NO ORAL OR IV History: RLQ pain n/v/d Comparison Study: CT CHEST WO on DOS: 05/03/25, CT CT AB PEL WO CON-NO ORAL OR IV on DOS: 03/25/25, US L IVER on DOS: 03/24/25 TECHNIQUE: Multidetector CT of the abdomen was performed from lung bases to pubic symphysis. Imaging was performed without IV contrast. Axial, coronal and sagittal multiplanar reformats were obtained fr om the axial data set by the technologist. Radiation Dose Information: CT Dose: CTDI volume is 16.9 mGy. Dose-length product is 1008.1 mGy*cm FINDINGS: Evaluation of solid organs is limited due to lack of intravenous contrast use. Findings: Lung Bases: No acute or significant lung base finding. Normal heart size. No pleural or pericardial effusion. Liver: The liver is normal in size. No focal lesions. Gallbladder and Biliary Tree: Cholelithiasis with mild gallbladder wall thickening (6-7 mm) and infla mmatory stranding around the gallbladder. Consider gallbladder ultrasound for further evaluation. Spleen: Unremarkable Pancreas: The pancreas is grossly normal in appearance. Adrenal Glands: Unremarkable Kidneys: Punctate calculus left kidney no hydronephrosis. 2 small punctate calculi right kidney no h ydronephrosis. Bladder: Grossly unremarkable for degree of distention. Bowel: The stomach is grossly normal in appearance. Small bowel and colon are normal in caliber and d istribution. The appendix is not visualized; however, no secondary findings of acute appendicitis id entified. Ascites: Absent Lymphadenopathy: No mesenteric, retroperitoneal or periportal lymphadenopathy. Abdominal Wall and Mesentery: Unremarkable. Vasculature: The visualized abdominal aorta is normal in size and caliber. Evaluation of abdominal a nd pelvic vessels is limited due to lack of intravenous contrast. Pelvic Organs: Unremarkable Musculoskeletal: No aggressive focal bony lesions, acute fractures or dislocation. Soft tissues: Unremarkable IMPRESSION: 1. Appendix not visualized. 2. Cholelithiasis with mild gallbladder wall thickening measuring 6-7 mm. There is also mild pericoli c stranding suggesting inflammatory changes. Consider ultrasound for further evaluation. 3. Bilateral nephrolithiasis without hydronephrosis. 4. No bladder calculi. Radiation optimization: All CT scans at this facility use at least one of these dose optimization te chniques: automated exposure control mA and/or kV adjustment per patient size (includes targeted exa ms where dose is matched to clinical indication) or iterative reconstruction.
[2025-07-12 13:44] LABS: Hematocrit 47.4 % (41.0-53.0); Hemoglobin 16.2 g/dL (13.5-17.5); Mean Corpuscular Hemoglobin 33.7 pg (28.0-32.0); Mean Corpuscular Volume 98.5 fL (80.0-100.0); Nucleated Red Blood Cells % 0.0 %
[2025-07-12 13:59] LABS: Alanine Aminotransferase 11 U/L (7-40); Albumin 3.9 g/dL (3.2-4.8); Alkaline Phosphatase 86 U/L (46-116); Anion Gap 8 (5-15); BUN/Creatinine Ratio 17.6 (10.0-20.0); Blood Urea Nitrogen 13 mg/dL (9-23); Calcium 8.7 mg/dL (8.7-10.4); Carbon Dioxide 23 mmol/L (20-31); Chloride 96 mmol/L (98-107); Glucose 103 mg/dL (74-106); Lipase 28 U/L (12-53); Potassium 3.7 mmol/L (3.5-5.1); Sodium 127 mmol/L (136-145); Total Protein 6.9 g/dL (5.7-8.2)
[2025-07-12 14:00] LABS: Bilirubin, Total 1.5 mg/dL (0.2-1.0)
[2025-07-12 14:14] LABS: Urine Protein, UAD 1+ (Negative)
--- NOTE | 2025-07-12 15:36 | DVHHPRES ---
History of Present Illness Resident Creating Document: FANG HERRERA History of Present Illness Patient is a 59 years old male with a past medical history of CAD, AFib, CHF, COPD on home O2, gallstones, diverticular disease, presents to the ED for chief complaint of right-sided abdominal pain. Patient reports that the pain began 3 days ago, located in the right lower quadrant and is constant, nonradiating, rated 8/10 in severity. He noticed that the pain worsen with bending or walking, with no clear alleviating factors. He also reports associated fever and diarrhea. He has not eaten in the past 3 days due to pain. He has a known history of diverticulosis and gallstones, with scheduled follow-up with his GI specialist in September. Initial vital sign was BP of 153/79 and 02 sat of 91% on room air but otherwise stable vitals with temp of 98.0 F, heart rate 92 and RR 20. The patient will be admitted for further evaluation and management. Cardiovascular: AFIB, CAD, CHF Pulmonary: COPD Hepatobiliary: Cholelithiasis Past Surgical History: Appendectomy, Hernia Repair, Tonsillectomy Smoke: <1 pack per day ALCOHOL: heavy Drugs: None Review of Systems Review of Systems Patient seen and examined at ER lobby. Patient is alert and oriented to time, place person and responding to all questions. Eyes: No Pain, No Vision change, No Conjunctivae inflammation, No Eyelid inflammation, No Other, No Redness ENT: No Ear pain, No Ear discharge, No Nose pain, No Nose discharge, No Nose congestion, No Mouth pain, No Mouth swelling, No Throat pain, No Throat swelling, No Other Cardiovascular: No Chest Pain, No Palpitations, No Orthopnea, No Paroxysmal No Dyspnea, No Edema, No Lt Headedness, No Other Respiratory: No Cough, No Dry, No Shortness of breath, No SOB with exertion, No Wheezing, No Hemoptysis, No Pleuritic Pain, No Sputum, No Other Gastrointestinal: Abdominal Pain, Diarrhea, No Nausea, No Vomiting, No Constipation, No Melena, No Hematochezia, No Other Genitourinary: No Dysuria, No Frequency, No Incontinence, No Hematuria, No Retention, No Other Musculoskeletal: No other, No neck pain, No shoulder pain, No arm pain, No back pain, No hand pain, No leg pain, No foot pain Skin: No Rash, No Lesions, No Jaundice, No Bruising, No Other Constitutional: Yes: Fever Allergies: Coded Allergies: Penicillins (Verified Allergy, Unknown, 09/22/18) Shellfish Allergy (Verified Allergy, Unknown, 09/22/18) Exam Vital Signs Vital Signs Date Time Temp Pulse Resp B/P (MAP) Pulse Ox O2 Delivery O2 Flow Rate FiO2 07/12/25 12:34 91 07/12/25 12:22 98.0 20 153/79 91 98.0 Exam General Appearance: Mild Distress, Obese Head Exam: Normal inspection Neck Exam: Normal inspection. Non-tender. Normal alignment Pulmonary/Respiratory: Chest non-tender. Clear bilateral breath sounds, no crackles, no wheezing. Cardiovascular/Chest: Regular rate and rhythm. No murmurs. No JVD. Peripheral Pulses: 2+ Radial (R). 2+ Radial (L). 2+ Pedal (R). 2+ Pedal (L) Abdominal Exam: RLQ, RUQ, Soft, Tenderness. Normal bowel sounds. normal abdomen, no visible veins. No hepatospenomegaly. No masses Ankle Exam: Negative ankle edema Lower extremities: Negative lower extremity edema Neuro/Mental Status: A&O x4. Coherent. Thoughts/Psych: Normal thought pattern. Appropriate mood and affect. Good judgement and insight Skin Exam: Normal inspection. Normal color. Warm. Dry Labs/Xrays Labs Test 07/12/25 13:19 07/12/25 12:49 Range/Units White Blood Count 14.6 H 4.4-10.8 10^3/uL Red Blood Count 4.82 4.5-5.90 10^6/uL Hemoglobin 16.2 13.5-17.5 g/dL Hematocrit 47.4 41.0-53.0 % Mean Corpuscular Volume 98.5 80.0-100.0 fL Mean Corpuscular Hemoglobin 33.7 H 28.0-32.0 pg Mean Corpuscular Hemoglobin Concent 34.2 32.0-36.0 g/dL Red Cell Distribution Width 14.4 H 11.8-14.3 % Platelet Count 149 140-450 10^3/uL Mean Platelet Volume 8.5 6.9-10.8 fL Neutrophils (%) (Auto) 86.9 H 37.0-80.0 % Lymphocytes (%) (Auto) 5.1 L 10.0-50.0 % Monocytes (%) (Auto) 7.6 0.0-12.0 % Eosinophils (%) (Auto) 0.1 0.0-7.0 % Basophils (%) (Auto) 0.3 0.0-2.0 % Neutrophils # (Auto) 12.6 H 1.6-8.6 10 ^3/uL Lymphocytes # (Auto) 0.7 0.4-5.4 10 ^3/uL Monocytes # (Auto) 1.1 0-1.3 10 ^3/uL Eosinophils # (Auto) 0 0-0.8 10 ^3/uL Basophils # (Auto) 0 0-0.2 10 ^3/uL Nucleated Red Blood Cells 0.0 % Sodium Level 127 L 136-145 mmol/L Potassium Level 3.7 3.5-5.1 mmol/L Chloride Level 96 L 98-107 mmol/L Carbon Dioxide Level 23 20-31 mmol/L Anion Gap 8 5-15 Blood Urea Nitrogen 13 9-23 mg/dL Creatinine 0.74 0.700-1.30 mg/dL Glomerular Filtration Rate Calc 103 >90 mL/min BUN/Creatinine Ratio 17.6 10.0-20.0 Serum Glucose 103 74-106 mg/dL Lactic Acid Level 1.2 0.4-2.0 mmol/L Calcium Level 8.7 8.7-10.4 mg/dL Total Bilirubin 1.5 H 0.2-1.0 mg/dL Aspartate Amino Transferase (AST) 21 13-40 U/L Alanine Aminotransferase (ALT) 11 7-40 U/L Alkaline Phosphatase 86 46-116 U/L B-Type Natriuretic Peptide 34.45 0-100 pg/mL Total Protein 6.9 5.7-8.2 g/dL Albumin 3.9 3.2-4.8 g/dL Lipase 28 12-53 U/L Urine Color Light-orange Yellow Urine Clarity Clear Clear Urine pH 5.5 5.0-9.0 Urine Specific [place] 1.026 1.001-1.035 Urine Protein 1+ H Negative Urine Ketones Negative Negative Urine Blood Trace H Negative /uL Urine Nitrite Negative Negative Urine Bilirubin Negative Negative Urine Urobilinogen 3 H Negative mg/dL Urine Leukocyte Esterase Negative Negative /uL Urine RBC 2 0 - 3 /hpf Urine Microscopic WBC 2 0-3 /HPF Urine Squamous Epithelial Cells None seen <5 /hpf Urine Bacteria None seen None Seen /hpf Urine Mucus Few None Seen Urine Glucose 3+ H Normal mg/dL SEPSIS Sepsis Screen Date sepsis recognized/suspect: Jul 12, 2025 Time Sepsis recognized/suspect: 2 Recent Procedure: No On Antibiotic Therapy: No Respiratory Rate >20: No Heart Rate >90: Yes Temp<36 C (96.8 F) or >38.3 C: No SBP <90 or MAP <65 mmHG: No New Acute Mental Status Change: No Is the patient on CPAP, BIPAP,: No Physician Orders Electrocardigram (07/12/25 12:41) Ct Ab Pel Wo Con-No Oral Or Iv (07/12/25 12:49) Blood Culture (07/12/25 12:49) Levofloxacin 500mg (Levaquin 500mg/ 100m (07/12/25 15:00) Metronidazole 500mg/100ml (Flagyl 500mg/ (07/12/25 15:00) Vital Signs Date Time Temp Pulse Resp B/P (MAP) Pulse Ox O2 Delivery O2 Flow Rate FiO2 07/12/25 12:34 91 07/12/25 12:22 98.0 92 20 153/79 91 98.0 Laboratory Tests Test 07/12/25 13:19 Lactic Acid Level 1.2 mmol/L (0.4-2.0) White Blood Count 14.6 10^3/uL (4.4-10.8) H Assessment/Plan Assessment/Plan # acute abd pain likely d/t cholecystitis # Acute Cholecystitis Abdomen/Pelvic CT: Cholelithiasis with mild gallbladder wall thickening measuring 6-7 mm. UA: Urobilinogen elevated Gallbladder US on Ceftriaxone and Metronidazole Surgical consult PT/PTT IV fluids # Bilateral nephrolithiasis Abdominal/pelvic CT: Bilateral nephrolithiasis without hydronephrosis. No bladder calculi. UA: Trace blood, RBC 2 Encouraged hydration Pain control as needed # History of CAD # History of AFib # History of CHF Echocardiogram (03/25/25): LVEF 50% by visual estimate. RV enlarged. left atrium enlarged. mild to moderate mitral regurg. small pericardial effusion no HD compromise adjajcent to RV EKG (03/24/25): Atrial flutter, Inferior infarct, acute (RCA), Probable RV involvement, suggest recording right precordial leads CXR # History of COPD Stable on home O2 3-4 L Goals of care discussed with the patient. Full code time spent : 31 mins Plan discussed with patient Plan discussed with Dr. De La Garza Plan discussed with: Patient, Daughter Date of Service: Jul 12, 2025 Billing Provider: DUTCH DE LA GARZA MD Common Visit Codes: 59469-OVGUZWF INP/OBS CARE (HIGH) Secondary Visit Codes: 22376-[id number] CARE PLAN 30 MINUTES FANG HERRERA RESIDENT Jul 12, 2025 15:36
[2025-07-12 16:25] VITALS: BP 102/53; PULSE 88; RESP 16; TEMP 98.9; O2SAT 95
--- NOTE | 2025-07-12 17:51 | DVH ---
CLINICAL HISTORY: RUQ pain TECHNIQUE: Transabdominal sonogram was performed of the right upper quadrant. COMPARISON: MRI MRCP MRI on DOS: 03/25/25, US LIVER on DOS: 03/24/25 FINDINGS: The liver is normal in echogenicity. There is no focal parenchymal abnormality. No intrahepatic bili perri ductal dilatation is present. The liver measures 20.4 cm. The gallbladder is distended with numerous stones. The gallbladder was significantly thickened, measu ring 14 mm. There is a 1.5 cm area pericholecystic fluid. This fluid appears to communicate with the gallbladder lumen via a perforated gallbladder wall. The sonographicmurphy sign was reported to be pr esent. The common bile duct is normal in caliber, measuring 5.6 mm. The pancreas is not seen. The right kidney is normal in echogenicity and measures 12 cm in length. There is no evidence for hyd ronephrosis or calculi. IMPRESSION: Findings are highly concerning for acute perforated cholecystitis.
[2025-07-12] MEDS ORDERED: SODIUM CHLORIDE 0.9% 1,000 ML IV SCH (18:00)
[2025-07-12 18:13] LABS: INR 1.18 (0.9-1.15); Partial Thromboplastin Time 41.1 SEC (24.5-34.5); Prothrombin Time 12.3 sec (9.3-11.8)
--- NOTE | 2025-07-12 19:38 | DVH ---
CLINICAL HISTORY: SOB TECHNIQUE: Single view of the chest was obtained. COMPARISON: CT CHEST WO on DOS: 05/03/25, XY CHEST PORTABLE on DOS: 03/24/25, XY CHEST PORTABLE on DOS: 04/14/23 FINDINGS: The heart size and pulmonary vasculature are normal. There are a few strands of bilateral mid and low er lung atelectasis. IMPRESSION: NO ACUTE CARDIOPULMONARY PROCESS.
--- NOTE | 2025-07-12 23:43 | ECG ---
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
== END 2025-07-12 18:14 | disposition left against medical advice (07) ==
LOC: ER 12:19 → OVERFLOW 16:05
PROVIDERS: ATTEND Internal Medicine
DX: K80.00 Calculus of gallbladder with acute cholecystitis without obstruction (principal); I50.9 Heart failure, unspecified; F17.210 Nicotine dependence, cigarettes, uncomplicated; N20.0 Calculus of kidney; I48.91 Unspecified atrial fibrillation; J44.9 Chronic obstructive pulmonary disease, unspecified; Z88.0 Allergy status to penicillin; Z91.013 Allergy to seafood; Z79.899 Other long term (current) drug therapy; Z90.49 Acquired absence of other specified parts of digestive tract
CPT/HCPCS: 36415; 71045; 74176; 76705; 80053; 81001; 83605; 83690; 83880; 85025; 85610; 85730; 87040; 93005; G0378

== ENCOUNTER 2025-08-11 14:49 | Inpatient (IN) | payer MEDICAID ==
[~2025-08-11] VITALS: Ht 182.9 cm; Wt 86.5 kg
--- NOTE | 2025-08-11 16:03 | ED.PDOC ---
History of Present Illness HPI Comments 59-year-old male BIBA with prior medical history of done AFib, CHF, gallstones, cirrhosis, COPD, liver: Surgical history of appendectomy, tonsillectomy, 4 hernia surgeries and a chief complaint of abdominal pain. EMS report that the patient was picked up at home for having nonradiating right upper quadrant pain for "a couple of hours". Patient states on having the problem in the past and was supposed to have a cholecystectomy but left against medical advice. Patient on scene had a saturation rate of 87% room air. Denies any other symptoms at this time. Denies chills, fever, N/V/D, SOB, CP. No other associated symptoms, modifiers, recent injuries or sick contacts present at this time. Chief Complaint: Abdominal Pain Time Seen by MD: 16:00 Primary Care Provider: TATUM Reviewed Notes: Nurses Notes, Scourer Notes, Medications, Allergies Allergies: Coded Allergies: Penicillins (Verified Allergy, Unknown, 09/22/18) Shellfish Allergy (Verified Allergy, Unknown, 09/22/18) Home Meds Active Scripts Furosemide (Lasix) 20 Mg Tb, 1 TAB PO DAILY, #90 TAB 1 Refill Prov:JOVI FIGUEROA MD 04/17/23 Enalapril Maleate (Enalapril Maleate) 5 Mg Tab, 1 TAB PO DAILY, #90 TAB 1 Refill Prov:JOVI FIGUEROA MD 04/17/23 Carvedilol (Coreg) 3.125 Mg Tab, 1 TAB PO BID, #180 TAB 3 Refills Prov:JOVI FIGUEROA MD 04/17/23 Dapagliflozin Propanediol (Farxiga) 10 Mg Tab, 10 MG PO DAILY, #90 TAB Prov:JOVI FIGUEROA MD 04/17/23 Atorvastatin Calcium (Lipitor) 40 Mg Tab, 1 TAB PO QPM, #90 TAB 1 Refill Prov:JOVI FIGUEROA MD 04/17/23 Amiodarone Hcl (Amiodarone Hcl) 200 Mg Tab, 1 TAB PO BID, #180 TAB 1 Refill Prov:JOVI FIGUEROA MD 04/17/23 Rivaroxaban (XARELTO) 20 Mg Tab, 1 TAB PO DAILY, #90 TAB 3 Refills Prov:JOVI FIGUEROA MD 04/17/23 Reported Medications Escitalopram Oxalate (ESCITALOPRAM OXALATE) 10 Mg Tab, 1 TAB PO DAILY, #30 TAB 3 Refills 03/25/25 Pantoprazole Sodium (PANTOPRAZOLE SODIUM) 40 Mg Inj, 40 MG PO, INJ 03/25/25 Levothyroxine Sodium (SYNTHROID TABLET) 50 Mcg Tb, 1 TAB PO DAILY, #30 TAB 5 Refills 03/25/25 Zolpidem Tartrate (Zolpidem Tartrate) 10 Mg Tab, 1 TAB PO QPM, #30 TAB 2 Refills 03/25/25 Carvedilol (Carvedilol) 3.125 Mg Tab, 1 TAB PO BID, #60 TAB 3 Refills 04/15/23 Furosemide (Furosemide) 20 Mg Tab, 1 TAB PO DAILY, #90 TAB 1 Refill 04/15/23 Information Source: Patient, Emergency Med Personnel Mode of Arrival: EMS Severity: Moderate Timing: Minutes Duration: Since onset, Minutes Prehospital treatment: None Past Medical History PAST MEDICAL HISTORY: AFIB, CHF, COPD, Gallstones, Liver Past Medical History (Other): Cirrhosis Surgical History: Appendectomy, Hernia Repair (4), Tonsillectomy Family History Family History: Reviewed,noncontributory to illness, Unknown Social History Smoker: Cigarettes Alcohol: Denies ETOH Use Drugs: Denies Drug Use Lives In: Home Constitutional: denies: chills, diaphoresis, fatigue, fever, malaise, sweats, weakness, others EENTM: denies: blurred vision, double vision, ear bleeding, ear discharge, ear drainage, ear pain, ear ringing, eye pain, eye redness, hearing loss, mouth pain, mouth swelling, nasal discharge, nose bleeding, nose congestion, nose pain, photophobia, tearing, throat pain, throat swelling, voice changes, others Respiratory: denies: cough, hemoptysis, orthopnea, SOB at rest, shortness of breath, SOB with excertion, stridor, wheezing, others Cardiovascular: denies: chest pain, dizzy spells, diaphoresis, Dyspnea on exertion, edema, irregular heart beat, left arm pain, lightheadedness, palpitations, PND, syncope, others Gastrointestinal: reports: abdominal pain; denies: abdomen distended, blood streaked bowels, constipated, diarrhea, dysphagia, difficulty swallowing, hematemesis, melena, nausea, poor appetite, poor fluid intake, rectal bleeding, rectal pain, vomiting, others Genitourinary: denies: burning, dysuria, flank pain, frequency, hematuria, incontinence, penile discharge, penile sore, pain, testicle pain, testicle swelling, urgency, others Neurological: denies: dizziness, fainting, headache, left sided numbness, left sided weakness, numbness, paresthesia, pre-existing deficit, right sided numbness, right sided weakness, seizure, speech problems, tingling, tremors, weakness, others Musculoskeletal: denies: back pain, gout, joint pain, joint swelling, muscle pain, muscle stiffness, neck pain, others Integumetry: denies: bruises, change in color, change in hair/nails, dryness, laceration, lesions, lumps, rash, wounds, others Allergic/Immunocompromised: denies: Difficulty Healing, Frequent Infections, Hives, Itching, others Hematologic/Lymphatic: denies: anemia, blood clots, easy bleeding, easy bruising, swollen glands, others Endocrine: denies: excessive hunger, excessive sweating, excessive thirst, excessive urination, flushing, intolerance to cold, intolerance to heat, unexplained weight gain, unexplained weight loss, others Psychiatric: denies: anxiety, bipolar disorder, depression, hopeless, panic disorder, schizophrenia, sleepless, suicidal, others All Other Systems: Reviewed and Negative Physical Exam General Appearance: Moderate Distress, Normal HEENT: Normal ENT Inspection, Pharynx Normal, TMs Normal Neck: Full Range of Motion, Non-Tender, Normal, Normal Inspection Respiratory: Chest Non-Tender, Lungs Clear, No Accessory Muscle Use, No Resp iratory Distress, Normal Breath Sounds Cardiovascular: No Edema, No JVD, No Murmur, No Gallop, Normal Peripheral Pulses, Regular Rate/Rhythm Breast Exam: Deferred Gastrointestinal: No Organomegaly, Non Tender, No Pulsatile Mass, Normal Bowel Sounds, Soft Genitalia: Deferred Pelvic: Deferred Rectal: Deferred Extremities: No calf tenderness, Normal capillary refill, Normal inspection, Normal range of motion, Non-tender, No pedal edema Musculoskeletal : Apperance: Normal Neurologic: 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 Was a procedure done?: No Differential Dx Considerations may include: Anemia Electrolyte imbalance X-Ray, Labs, Meds, VS Vital Signs Date Time Temp Pulse Resp B/P (MAP) Pulse Ox O2 Delivery O2 Flow Rate FiO2 08/11/25 15:05 97.7 75 16 120/74 94 97.7 08/11/25 14:54 76 Lab Test 08/11/25 16:33 Range/Units White Blood Count 13.4 H 4.4-10.8 10^3/uL Red Blood Count 5.37 4.5-5.90 10^6/uL Hemoglobin 17.7 H 13.5-17.5 g/dL Hematocrit 52.6 41.0-53.0 % Mean Corpuscular Volume 98.0 80.0-100.0 fL Mean Corpuscular Hemoglobin 33.0 H 28.0-32.0 pg Mean Corpuscular Hemoglobin Concent 33.7 32.0-36.0 g/dL Red Cell Distribution Width 15.0 H 11.8-14.3 % Platelet Count 200 140-450 10^3/uL Mean Platelet Volume 7.7 6.9-10.8 fL Neutrophils (%) (Auto) 82.7 H 37.0-80.0 % Lymphocytes (%) (Auto) 9.0 L 10.0-50.0 % Monocytes (%) (Auto) 7.0 0.0-12.0 % Eosinophils (%) (Auto) 0.8 0.0-7.0 % Basophils (%) (Auto) 0.5 0.0-2.0 % Neutrophils # (Auto) 11.1 H 1.6-8.6 10 ^3/uL Lymphocytes # (Auto) 1.2 0.4-5.4 10 ^3/uL Monocytes # (Auto) 0.9 0-1.3 10 ^3/uL Eosinophils # (Auto) 0.1 0-0.8 10 ^3/uL Basophils # (Auto) 0.1 0-0.2 10 ^3/uL Nucleated Red Blood Cells 0.1 % Sodium Level 136 136-145 mmol/L Potassium Level 3.8 3.5-5.1 mmol/L Chloride Level 100 98-107 mmol/L Carbon Dioxide Level 28 20-31 mmol/L Anion Gap 8 5-15 Blood Urea Nitrogen 11 9-23 mg/dL Creatinine 0.64 L 0.700-1.30 mg/dL Glomerular Filtration Rate Calc 108 >90 mL/min BUN/Creatinine Ratio 17.2 10.0-20.0 Serum Glucose 97 74-106 mg/dL Calcium Level 9.7 8.7-10.4 mg/dL Total Bilirubin 0.8 0.2-1.0 mg/dL Aspartate Amino Transferase (AST) 19 13-40 U/L Alanine Aminotransferase (ALT) 14 7-40 U/L Alkaline Phosphatase 127 H 46-116 U/L Total Protein 7.9 5.7-8.2 g/dL Albumin 4.6 3.2-4.8 g/dL Patient alert. Came in for abdominal pain. History of liver disease. Liver enzymes within normal limits. States that he has stopped drinking. WBC elevated. Hemoglobin slightly elevated. Establish intravenous access. Was given fluids. Was given Rocephin. Was given Flagyl. Explained to the patient. Continue monitoring. Time of 1ST Reevaluation: 16:30 Reevaluation 1ST: Unchanged Patient Education/Counseling: Diagnosis, Treatment, Prognosis Family Education/Counseling: No Family Present SEPSIS Sepsis Screen Date sepsis recognized/suspect: Aug 11, 2025 Time Sepsis recognized/suspect: 1449 Recent Procedure: No On Antibiotic Therapy: No Respiratory Rate >20: No Heart Rate >90: No Temp<36 C (96.8 F) or >38.3 C: No SBP <90 or MAP <65 mmHG: No New Acute Mental Status Change: No Is the patient on CPAP, BIPAP,: No Physician Orders Electrocardigram (08/11/25 15:07) Chest Portable (08/11/25 16:22) Ceftriaxone 1gm/50ml (Rocephin) (08/11/25 17:30) Metronidazole 500mg/100ml (Flagyl 500mg/ (08/11/25 17:30) Vital Signs Date Time Temp Pulse Resp B/P (MAP) Pulse Ox O2 Delivery O2 Flow Rate FiO2 08/11/25 15:05 97.7 75 16 120/74 94 97.7 08/11/25 14:54 76 Laboratory Tests Test 08/11/25 16:33 White Blood Count 13.4 10^3/uL (4.4-10.8) H Departure 1 Departure Time of Disposition: 17:23 Impression: Primary Impression: Acute abdominal pain Additional Impression: Enteritis Disposition: ADMITTED INPATIENT Admit to: Med Surg Condition: Guarded Critical Care Note Critical Care Time?: No Stability Stability form required: No Heart Score Heart Score: Heart Score Response (Comments) Value History N/A 0 EKG N/A 0 Age N/A 0 Risk Factors N/A 0 Troponin N/A 0 Total 0 I personally scribed for CHANTAL FUCHS MD ([email or web address]) on 08/11/25 at 16:03. Electronically submitted by Gopi Tejeda ([email or web address]). CHANTAL FUCHS MD Aug 11, 2025 16:03
[2025-08-11 16:47] LABS: Hematocrit 52.6 % (41.0-53.0); Hemoglobin 17.7 g/dL (13.5-17.5); Mean Corpuscular Hemoglobin 33.0 pg (28.0-32.0); Mean Corpuscular Volume 98.0 fL (80.0-100.0); Nucleated Red Blood Cells % 0.1 %
--- NOTE | 2025-08-11 16:56 | DVH ---
CHEST RADIOGRAPH Indication: sob Technique: Single frontal view of the chest was obtained Comparison: XY CHEST XRAY 1 VIEW on DOS: 07/12/25, XY CHEST PORTABLE on DOS: 03/24/25, XY CHEST PORTABL E on DOS: 04/14/23 FINDINGS: Lines and Tubes: None Lungs: Increased bibasilar bronchovascular markings are noted this may be due to atelectasis or infec tion. Is a change from the previous study of 07/11/2025. Pleura: No effusion. No pneumothorax. Cardiomediastinal contours: Unremarkable Bones: No acute osseous abnormality. IMPRESSION: 1. Increased bronchovascular markings in both lung bases when compared to 07/12/2025. 2. This may be due to atelectasis or infection. Correlate with the clinical setting.
[2025-08-11 17:03] LABS: Alanine Aminotransferase 14 U/L (7-40); Albumin 4.6 g/dL (3.2-4.8); Alkaline Phosphatase 127 U/L (46-116); Anion Gap 8 (5-15); BUN/Creatinine Ratio 17.2 (10.0-20.0); Bilirubin, Total 0.8 mg/dL (0.2-1.0); Blood Urea Nitrogen 11 mg/dL (9-23); Calcium 9.7 mg/dL (8.7-10.4); Carbon Dioxide 28 mmol/L (20-31); Chloride 100 mmol/L (98-107); Glucose 97 mg/dL (74-106); Potassium 3.8 mmol/L (3.5-5.1); Sodium 136 mmol/L (136-145); Total Protein 7.9 g/dL (5.7-8.2)
--- NOTE | 2025-08-11 20:14 | ECG ---
[facility] Test Date: 2025-08-11 Test Time: 14:54:37 Pat Name: MILI PETE Department: [facility] ED Patient ID: [id number] Room: 0251T Gender: M Ekg Monitor: ABNER : 1965 Requested By: DELMI HOLDEN Order Number: [id number] Reading MD: Geoff Stephens Measurements Intervals [place] Rate: 76 P: 43 NH: 229 QRS: 95 QRSD: 112 T: 74 QT: 391 QTc: 440 Interpretive Statements Sinus rhythm Prolonged NH interval Borderline intraventricular conduction delay Low voltage, precordial leads Electronically Signed On 08-14-2025 18:41:26 PDT by Geoff Stephens Please click the below link to view image of tracing.
--- NOTE | 2025-08-11 20:18 | DVHHPRES ---
History of Present Illness Resident Creating Document: HARVEY BERNSTEIN History of Present Illness This is a 59-year-old male with past medical history of liver cirrhosis, hypertension, COPD, CAD s/p angiography no stents placed, cholecystitis, presented to the ER with chief complain of abdominal pain. The pain is located in right upper quadrant, started to day, described as sharp, intermittent, 9/10, aggravates with inspiration. He also complained of nausea and lightheadedness. He denies vomiting, fever, chills. Patient uses 4 L oxygen at home as needed. Previous hospitalization: July 12, 2025 for acute cholecystitis, patient chose conservative management instead of surgery during that admission. PMHx: liver cirrhosis, hypertension, COPD, CAD s/p angiography, cholecystitis, diverticulitis PSHx: 4 hernia repairs Social history: Quit smoking 3 years ago, 10 pack per year. Denies alcohol, drug use. Lives in house with family, full code, next to kin is . Home medication: Enalapril, atorvastatin, Farxiga, furosemide, levothyroxine, rivaroxaban, pantoprazole Allergic history: Penicillin, shellfish Patient was examined at bedside today. Labs show neutrophilic leukocytosis. Patient is admitted for further evaluation and management. Review of Systems Review of Systems ROS: Constitutional: Denies weight loss, fever and chills. HEENT: Denies changes in vision and hearing. Respiratory: Denies shortness of breath and cough Cardiovascular: Denies chest discomfort or palpitations GI: RUQ Abdominal pain, nausea, lightheadedness : Denies dysuria and urinary frequency. Musculoskeletal: Denies myalgias and joint pain Skin: Denies rash and pruritus. Neurological: Denies dizziness, headache, vision or hearing problems Allergies: Coded Allergies: Penicillins (Verified Allergy, Unknown, 09/22/18) Shellfish Allergy (Verified Allergy, Unknown, 09/22/18) Exam Vital Signs Vital Signs Date Time Temp Pulse Resp B/P (MAP) Pulse Ox O2 Delivery O2 Flow Rate FiO2 08/11/25 15:05 97.7 75 16 120/74 94 97.7 Exam General: Patient is in acute distress due to pain. Alert and oriented in person, place and time. Patient following commands. HEENT: Normocephalic, atraumatic, moist mucous membranes Respiratory/pulmonary: Clear lungs bilaterally, vesicular murmurs present in almost all lung ray, no associated crackles or wheezes. Cardiovascular: Normal heart sounds S1 and S2 with no associated murmurs Abdomen: Tenderness on light palpation in right upper quadrant. Positive Adamson's sign. Well-healed surgical scars in the lower abdomen. Extremities: There is no peripheral edema present at the lower extremities. Peripheral Pulses: 3+ Radial (R). 3+ Radial (L). 3+ Dorsalis pedis (R). 3+ Dorsalis pedis(L) Skin: No rashes or pruritus, there is no sacral edema present at this time. Neurological: Intact cranial nerves with no focal neurologic deficits Labs/Xrays Labs Test 08/11/25 16:33 Range/Units White Blood Count 13.4 H 4.4-10.8 10^3/uL Red Blood Count 5.37 4.5-5.90 10^6/uL Hemoglobin 17.7 H 13.5-17.5 g/dL Hematocrit 52.6 41.0-53.0 % Mean Corpuscular Volume 98.0 80.0-100.0 fL Mean Corpuscular Hemoglobin 33.0 H 28.0-32.0 pg Mean Corpuscular Hemoglobin Concent 33.7 32.0-36.0 g/dL Red Cell Distribution Width 15.0 H 11.8-14.3 % Platelet Count 200 140-450 10^3/uL Mean Platelet Volume 7.7 6.9-10.8 fL Neutrophils (%) (Auto) 82.7 H 37.0-80.0 % Lymphocytes (%) (Auto) 9.0 L 10.0-50.0 % Monocytes (%) (Auto) 7.0 0.0-12.0 % Eosinophils (%) (Auto) 0.8 0.0-7.0 % Basophils (%) (Auto) 0.5 0.0-2.0 % Neutrophils # (Auto) 11.1 H 1.6-8.6 10 ^3/uL Lymphocytes # (Auto) 1.2 0.4-5.4 10 ^3/uL Monocytes # (Auto) 0.9 0-1.3 10 ^3/uL Eosinophils # (Auto) 0.1 0-0.8 10 ^3/uL Basophils # (Auto) 0.1 0-0.2 10 ^3/uL Nucleated Red Blood Cells 0.1 % Sodium Level 136 136-145 mmol/L Potassium Level 3.8 3.5-5.1 mmol/L Chloride Level 100 98-107 mmol/L Carbon Dioxide Level 28 20-31 mmol/L Anion Gap 8 5-15 Blood Urea Nitrogen 11 9-23 mg/dL Creatinine 0.64 L 0.700-1.30 mg/dL Glomerular Filtration Rate Calc 108 >90 mL/min BUN/Creatinine Ratio 17.2 10.0-20.0 Serum Glucose 97 74-106 mg/dL Calcium Level 9.7 8.7-10.4 mg/dL Total Bilirubin 0.8 0.2-1.0 mg/dL Aspartate Amino Transferase (AST) 19 13-40 U/L Alanine Aminotransferase (ALT) 14 7-40 U/L Alkaline Phosphatase 127 H 46-116 U/L Total Protein 7.9 5.7-8.2 g/dL Albumin 4.6 3.2-4.8 g/dL SEPSIS Sepsis Screen Date sepsis recognized/suspect: Aug 11, 2025 Time Sepsis recognized/suspect: 1449 Recent Procedure: No On Antibiotic Therapy: No Respiratory Rate >20: No Heart Rate >90: No Temp<36 C (96.8 F) or >38.3 C: No SBP <90 or MAP <65 mmHG: No New Acute Mental Status Change: No Is the patient on CPAP, BIPAP,: No Physician Orders Electrocardigram (08/11/25 15:07) Chest Portable (08/11/25 16:22) Acetaminophen Tab Or Cap (Tylenol Tablet (08/11/25 20:15) Vital Signs Date Time Temp Pulse Resp B/P (MAP) Pulse Ox O2 Delivery O2 Flow Rate FiO2 08/11/25 15:05 97.7 75 16 120/74 94 97.7 08/11/25 14:54 76 Laboratory Tests Test 08/11/25 16:33 White Blood Count 13.4 10^3/uL (4.4-10.8) H Assessment/Plan Assessment/Plan Sepsis due to Acute cholecystitis Liver cirrhosis Tachycardia, tachypnea, Neutrophilic leukocytosis Ultrasound shows gallbladder wall thickening, positive sonographic Adamson's sign. Blood culture ordered NPO, surgery consulted IV ceftriaxone, metronidazole IV NS bolus and maintenance ordered Hyperlipidemia Atorvastatin 40 mg p.o. Hypertension Chronic diastolic heart failure with EF 50% Continue enalapril Holding Farxiga, furosemide due to sepsis, soft blood pressure Hypothyroidism TSH 1.66 Continue levothyroxine 25 mcg p.o. Paroxysmal Atrial fibrillation CHADSVASc 2 On rivaroxaban, discontinued for eventual surgery. Lovenox therapeutic dose given Hypomagnesemia Magnesium supplemented, recheck magnesium levels DIET: NPO DVT PROPHYLAXIS: Lovenox GI PROPHYLAXIS: Protonix CODE STATUS: Goals of care discussed with patient at bedside for more than 36 minutes. Full code DISPOSITION: Telemetry Patient's status and plan discussed with the patient. Case discussed with Dr. Hardy Plan discussed with: Patient, Other (Nurses) Date of Service: Aug 11, 2025 Billing Provider: GABINO LARRY MD Common Visit Codes: 23409-[id number] INP/OBS CARE (HIGH) Secondary Visit Codes: [id number] CARE PLAN 30 MINUTES HARVEY BERNSTEIN RESIDENT Aug 11, 2025 20:18 ARJUN PARHAM RESIDENT Aug 12, 2025 05:12
[2025-08-11] MEDS: ACETAMINOPHEN 500 MG TAB or CAP PO ONE (20:20)
[2025-08-11 20:53] LABS: INR 1.41 (0.9-1.15); Partial Thromboplastin Time 44.4 SEC (24.5-34.5); Prothrombin Time 14.4 sec (9.3-11.8)
[2025-08-11] MEDS ORDERED: MORPHINE SULFATE INJ 2 MG/ml SYRG IV PRN (22:15)
[2025-08-11] MEDS: PANTOPRAZOLE 40 MG/10 ML VIAL INJ IV ONE (23:14)
[2025-08-11] MEDS ORDERED: DEXTROSE (50%) 50ML SYRG IV PRN (23:15)
[2025-08-11] MEDS: SODIUM CHLORIDE 0.9% 500 ML IV ONE (23:17)
[2025-08-11 23:44] LABS: Cholesterol 90.0 mg/dL (< 200); HDL Cholesterol 36.0 mg/dL (40-59); Magnesium 1.5 mg/dL (1.6-2.6); Triglycerides 72.0 mg/dL (< 150)
[2025-08-11 23:55] LABS: Lipase 25.0 U/L (12-53)
[2025-08-11] MEDS: SODIUM CHLORIDE 0.9% 1,000 ML IV SCH (23:58)
[2025-08-12] VITALS (8 sets, daily range): BP systolic 105–132; BP diastolic 57–70; PULSE 61–118; RESP 16–20; TEMP 97.9–99.8; O2SAT 90–92
--- NOTE | 2025-08-12 01:45 | DVH ---
INDICATION: Cholecystitis TECHNIQUE: Multiple real-time sonographic images were obtained of the right upper quadrant. COMPARISON: US GALLBLADDER on DOS: 07/12/25, US LIVER on DOS: 03/24/25 FINDINGS: The liver demonstrates heterogeneous echotexture without focal mass lesions. The liver noah sures 17.4 cm. Suspect some surface nodularity. There is no intrahepatic or extrahepatic ductal dilatation. The common duct measures 0.4 cm. Sludge and mobile stones in the gallbladder. Borderline gallbladder distention. Sonographic Adamson's sign is positive. The gallbladder wall measures 1.1 cm. The right kidney measures 11.9 cm. The right kidney is normal in contour, size, and shape. The echoge nicity is normal. There is no hydronephrosis. The pancreas is not well visualized due to overlying bowel gas. IMPRESSION: Somewhat indeterminate study with gallstones, wall thickening, and positive sonographic adamson's sign however no tense gallbladder distention and no significant surrounding inflammatory changes. Close f ollow-up recommended. Cirrhotic appearing liver.
[2025-08-12] MEDS: MAGNESIUM SULFATE 1GM/100ML 100 ML IV ONE (04:05)
[2025-08-12] MEDS ORDERED: ACETAMINOPHEN 325 MG TAB PO SCH (06:00)
[2025-08-12] MEDS: LEVOTHYROXINE SODIUM 25 MCG TAB PO SCH (06:18)
[2025-08-12 06:45] LABS: Hematocrit 45.1 % (41.0-53.0); Hemoglobin 15.5 g/dL (13.5-17.5); Mean Corpuscular Hemoglobin 33.5 pg (28.0-32.0); Mean Corpuscular Volume 97.6 fL (80.0-100.0); Nucleated Red Blood Cells % 0.0 %
[2025-08-12] MEDS ORDERED: InsuLIN REG 1unit/0.01ml Soln (100units/ml) SC SCH (07:00)
[2025-08-12] MEDS ORDERED: ACCU-CHEK COMFORT CURVE STRIP VI SCH (07:00)
[2025-08-12 07:03] LABS: Alanine Aminotransferase 10 U/L (7-40); Albumin 3.9 g/dL (3.2-4.8); Alkaline Phosphatase 98 U/L (46-116); Anion Gap 8 (5-15); BUN/Creatinine Ratio 18.9 (10.0-20.0); Blood Urea Nitrogen 10 mg/dL (9-23); Carbon Dioxide 25 mmol/L (20-31); Chloride 103 mmol/L (98-107); Glucose 104 mg/dL (74-106); Magnesium 2.1 mg/dL (1.6-2.6); Potassium 3.6 mmol/L (3.5-5.1); Total Protein 6.7 g/dL (5.7-8.2)
[2025-08-12 07:09] LABS: Sodium 136 mmol/L (136-145)
[2025-08-12 07:10] LABS: Bilirubin, Total 1.4 mg/dL (0.2-1.0); Calcium 8.6 mg/dL (8.7-10.4)
[2025-08-12] MEDS: PANTOPRAZOLE 40 MG/10 ML VIAL INJ IV SCH (08:50)
[2025-08-12] MEDS: HYDROmorphone HCL 2 MG/ML VL/or syr IV PRN (09:02)
[2025-08-12 09:45] LABS: Urine Protein, UAD Negative (Negative)
[2025-08-12 09:55] LABS: Amphetamine Screen, Urine Neg (NEGATIVE); Barbiturate Scree,Urine Neg (NEGATIVE); Benzodiazephine Screen, Urine Neg (NEGATIVE); Cannabinoid Screen, Urine Neg (NEGATIVE); Cocaine Screen, Urine Neg (NEGATIVE); Opiate Scree,Urine Neg (NEGATIVE); Phencyclidine Screen, Urine Neg (NEGATIVE)
[2025-08-12] MEDS ORDERED: FUROSEMIDE 20 MG TAB PO SCH (10:00)
[2025-08-12] MEDS: ENALAPRIL MALEATE 10 MG TAB PO SCH (10:00)
[2025-08-12] MEDS ORDERED: ENOXAPARIN SOD 100 MG/1 ML SYRINGE SC SCH (10:00)
[2025-08-12 11:56] LABS: Hematocrit 45.1 % (41.0-53.0); Hemoglobin 15.4 g/dL (13.5-17.5)
--- NOTE | 2025-08-12 12:40 | DVHINCON2 ---
Consultation - Surgical Date Seen: Aug 12, 2025 Referring Physician Reason for Consultation cholecystitis History of Present Illness History of Present Illness Mr. Rubio is a 59-year-old male who presents to the hospital with right upper quadrant pain that has been present since yesterday, pain does not radiate. States that he got dizzy with the pain but no nausea no vomiting. Patient states that he has had multiple episodes throughout the years, in the last 1 was a month ago. Denies acholic stools, yellowing of eyes, darkening of urine, or changes in urinary or stooling habits. Past Medical/Surgical History Past Medical/Surgical History Past medical history: Liver cirrhosis likely due to alcohol, hypertension, COPD, CAD, diverticulosis Past surgical history ventral hernia repair x4, colon resection due to diverticulitis Patient is currently on Xarelto last taken on 08/10 Family and Social History Family and Social History Family history noncontributory ETOH quit 2 years ago, former drinker of a 6 pack per day T Ob/drugs denies Allergies and medications Allergies: Coded Allergies: Penicillins (Verified Allergy, Unknown, 09/22/18) Shellfish Allergy (Verified Allergy, Unknown, 09/22/18) Home Meds Active Scripts Furosemide (Lasix) 20 Mg Tb, 1 TAB PO DAILY, #90 TAB 1 Refill Prov:JOVI FIGUEROA MD 04/17/23 Enalapril Maleate (Enalapril Maleate) 5 Mg Tab, 1 TAB PO DAILY, #90 TAB 1 Refill Prov:JOVI FIGUEROA MD 04/17/23 Carvedilol (Coreg) 3.125 Mg Tab, 1 TAB PO BID, #180 TAB 3 Refills Prov:JOVI FIGUEROA MD 04/17/23 Dapagliflozin Propanediol (Farxiga) 10 Mg Tab, 10 MG PO DAILY, #90 TAB Prov:JOVI FIGUEROA MD 04/17/23 Atorvastatin Calcium (Lipitor) 40 Mg Tab, 1 TAB PO QPM, #90 TAB 1 Refill Prov:JOVI FIGUEROA MD 04/17/23 Amiodarone Hcl (Amiodarone Hcl) 200 Mg Tab, 1 TAB PO BID, #180 TAB 1 Refill Prov:JOVI FIGUEROA MD 04/17/23 Rivaroxaban (XARELTO) 20 Mg Tab, 1 TAB PO DAILY, #90 TAB 3 Refills Prov:JOVI FIGUEROA MD 04/17/23 Reported Medications Escitalopram Oxalate (ESCITALOPRAM OXALATE) 10 Mg Tab, 1 TAB PO DAILY, #30 TAB 3 Refills 03/25/25 Pantoprazole Sodium (PANTOPRAZOLE SODIUM) 40 Mg Inj, 40 MG PO, INJ 03/25/25 Levothyroxine Sodium (SYNTHROID TABLET) 50 Mcg Tb, 1 TAB PO DAILY, #30 TAB 5 Refills 03/25/25 Zolpidem Tartrate (Zolpidem Tartrate) 10 Mg Tab, 1 TAB PO QPM, #30 TAB 2 Refills 03/25/25 Carvedilol (Carvedilol) 3.125 Mg Tab, 1 TAB PO BID, #60 TAB 3 Refills 04/15/23 Furosemide (Furosemide) 20 Mg Tab, 1 TAB PO DAILY, #90 TAB 1 Refill 04/15/23 Review of systems Review of Systems: Deferred Examination Vital signs Vital Signs Date Time Temp Pulse Resp B/P (MAP) Pulse Ox O2 Delivery O2 Flow Rate FiO2 08/12/25 09:32 70 20 113/59 08/12/25 09:00 98.6 90 98.6 08/12/25 08:00 Nasal Cannula* 3 32 Medications Current Medications Medications (Trade) Dose Ordered Sig/Sergio Route PRN Reason Start Time Stop Time Status Last Admin Ondansetron HCl (Zofran) 4 mg Q4HP PRN IV NAUSEA / VOMITING 08/11/25 22:15 Morphine Sulfate 2 mg Q4HPRN PRN IV SEVERE PAIN (7-10 PAIN SCALE) 08/11/25 22:15 08/12/25 05:06 DC Enoxaparin Sodium (Lovenox) 90 mg Q12HR SC 08/12/25 10:00 Pantoprazole Sodium (Protonix) 40 mg DAILY IV 08/12/25 10:00 08/12/25 08:50 Atorvastatin Calcium (Lipitor) 20 mg HS PO 08/12/25 22:00 Furosemide (Lasix Tablet) 20 mg DAILY PO 08/12/25 10:00 08/12/25 02:43 DC Metronidazole 100 ml @ 100 mls/hr Q8HR IV 08/12/25 06:00 08/12/25 06:18 Ceftriaxone Sodium 50 ml @ 100 mls/hr DAILY@2100 IV 08/12/25 21:00 Levothyroxine Sodium (Synthroid Tablet) 25 mcg QAM@0600 PO 08/12/25 06:00 08/12/25 06:18 Enalapril Maleate (Vasotec Tablet) 15 mg DAILY PO 08/12/25 10:00 Zolpidem Tartrate (Ambien) 10 mg HSPRN PRN PO FOR INSOMNIA 08/11/25 23:15 Sodium Chloride 1,000 ml @ 125 mls/hr Q8H IV 08/11/25 23:15 08/12/25 09:03 DC 08/12/25 07:15 Diagnostic Test (Pha) (Accu-Chek Comfort Curve T) 1 strip ACHS 08/12/25 07:00 08/12/25 02:41 DC Insulin Human Regular (InsuLIN R) ACHS SC 08/12/25 07:00 08/12/25 02:41 DC Dextrose 50 ml UD PRN IV Blood Sugar LESS THAN 60 08/11/25 23:15 08/12/25 02:41 DC Acetaminophen (Tylenol Tablet) 650 mg Q6HP PO 08/12/25 06:00 Cancel Hydromorphone HCl (Dilaudid Injection) 0.25 mg Q4HPRN PRN IV SEVERE PAIN (7-10 PAIN SCALE) 08/12/25 05:15 08/12/25 09:02 Laboratory Labs Test 08/12/25 11:42 08/12/25 09:24 08/12/25 06:03 08/11/25 23:18 Range/Units Hemoglobin 15.4 13.5-17.5 g/dL Hematocrit 45.1 41.0-53.0 % Urine Color Light-orange Yellow Urine Clarity Clear Clear Urine pH 5.5 5.0-9.0 Urine Specific [place] 1.021 1.001-1.035 Urine Protein Negative Negative Urine Ketones Negative Negative Urine Blood Negative Negative /uL Urine Nitrite Negative Negative Urine Bilirubin Negative Negative Urine Urobilinogen 2 H Negative mg/dL Urine Leukocyte Esterase Negative Negative /uL Urine RBC 3 0 - 3 /hpf Urine Microscopic WBC 1 0-3 /HPF Urine Squamous Epithelial Cells None seen <5 /hpf Urine Bacteria None seen None Seen /hpf Urine Mucus Few None Seen Urine Glucose 3+ H Normal mg/dL Urine Opiates Screen Neg NEGATIVE Urine Fentanyl Screen Neg NEGATIVE Urine Barbiturates Screen Neg NEGATIVE Urine Phencyclidine Screen Neg NEGATIVE Urine Amphetamines Screen Neg NEGATIVE Urine Benzodiazepines Screen Neg NEGATIVE Urine Cocaine Screen Neg NEGATIVE Urine Cannabinoids Screen Neg NEGATIVE White Blood Count 10.0 # 4.4-10.8 10^3/uL Red Blood Count 4.62 4.5-5.90 10^6/uL Mean Corpuscular Volume 97.6 80.0-100.0 fL Mean Corpuscular Hemoglobin 33.5 H 28.0-32.0 pg Mean Corpuscular Hemoglobin Concent 34.4 32.0-36.0 g/dL Red Cell Distribution Width 14.8 H 11.8-14.3 % Platelet Count 166 140-450 10^3/uL Mean Platelet Volume 8.2 6.9-10.8 fL Neutrophils (%) (Auto) 75.4 37.0-80.0 % Lymphocytes (%) (Auto) 12.4 10.0-50.0 % Monocytes (%) (Auto) 11.0 0.0-12.0 % Eosinophils (%) (Auto) 0.9 0.0-7.0 % Basophils (%) (Auto) 0.3 0.0-2.0 % Neutrophils # (Auto) 7.6 1.6-8.6 10 ^3/uL Lymphocytes # (Auto) 1.2 0.4-5.4 10 ^3/uL Monocytes # (Auto) 1.1 0-1.3 10 ^3/uL Eosinophils # (Auto) 0.1 0-0.8 10 ^3/uL Basophils # (Auto) 0 0-0.2 10 ^3/uL Nucleated Red Blood Cells 0.0 % Sodium Level 136 136-145 mmol/L Potassium Level 3.6 3.5-5.1 mmol/L Chloride Level 103 98-107 mmol/L Carbon Dioxide Level 25 20-31 mmol/L Anion Gap 8 5-15 Blood Urea Nitrogen 10 9-23 mg/dL Creatinine 0.53 L 0.700-1.30 mg/dL Glomerular Filtration Rate Calc 114 >90 mL/min BUN/Creatinine Ratio 18.9 10.0-20.0 Serum Glucose 104 74-106 mg/dL Calcium Level 8.6 L 8.7-10.4 mg/dL Magnesium Level 2.1 1.6-2.6 mg/dL Total Bilirubin 1.4 H 0.2-1.0 mg/dL Direct Bilirubin 0.6 H <0.3 mg/dL Aspartate Amino Transferase (AST) 18 13-40 U/L Alanine Aminotransferase (ALT) 10 7-40 U/L Alkaline Phosphatase 98 46-116 U/L Total Protein 6.7 5.7-8.2 g/dL Albumin 3.9 3.2-4.8 g/dL Lactic Acid Level 0.9 0.4-2.0 mmol/L Test 08/11/25 21:27 08/11/25 16:33 Range/Units Phosphorus Level 3.0 2.4-5.1 mg/dL C-Reactive Protein High Sensitivity 4.03 H <1.0 mg/dL Triglycerides Level 72 < 150 mg/dL Cholesterol Level 90 < 200 mg/dL LDL Cholesterol 42 < 100 mg/dL HDL Cholesterol 36 L 40-59 mg/dL Lipase 25 12-53 U/L Prothrombin Time 14.4 H 9.3-11.8 sec Prothrombin Time INR 1.41 H 0.9-1.15 Activated Partial Thromboplast Time 44.4 H 24.5-34.5 SEC Hemoglobin A1c 5.7 <5.7 % A1C Vitamin B12 Level 350 211-911 pg/mL Vitamin D 25-Hydroxy 51.0 30.0-100 ng/mL Thyroid Stimulating Hormone (TSH) 1.66 0.55-4.78 uIU/mL Examination: GENERAL:Normal, HEENT:Normal (No icterus), ABDOMEN:Abnormal (Nondistended, soft, depressible, low abdominal midline scar and right lower quadrant scar, right upper quadrant tenderness, no rebound, no guarding) Problem List/Assessment/Plan Problems: (1) Acute cholecystitis Assessment and Plan Mr. Rubio is a 59-year-old male who presents with the acute cholecystitis. Ultrasound shows multiple stones in the gallbladder lumen and physical exam remarkable for tenderness in the right upper quadrant. Patient will benefit from laparoscopic cholecystectomy although given his past medical history he would need prior cardiac clearance and he will also need Xarelto washout of at least 5 days. 1. Prior to surgery patient will need Xarelto washout for 5 days (last taken on 08/10), and also cardiac clearance 2. If patient's conditions worsens prior to the 5 day washout, he will benefit from kaycee tube placement by Interventional Radiology 3. If patient conditions improve and he does not wish to wait the 5 days for the surgery, he can be discharged to complete a 10-14 day course of antibiotics by mouth 4. Low-fat diet Plan discussed with Plan discussed with: Patient Visit Coding Surgery Date of Service if different f: Aug 12, 2025 Billing Provider: DALIA SARMIENTO MD Surgery Visit Codes: [id number] - INP CONSULT <110 MIN DALIA SARMIENTO MD Aug 12, 2025 12:40
--- NOTE | 2025-08-12 15:34 | DVHPNRES ---
Progress Note Date Seen: Aug 12, 2025 Resident Creating Document: FANG HERRERA Medical Necessity Reason Pt with a Central, PICC or Fol: No Subjective Review of Systems Patient is a 59-year-old male with past medical history of liver cirrhosis, hypertension, COPD, CAD s/p angiography no stents placed, cholecystitis, presented to [facility] ED with complaint of abdominal pain. The pain is located in right upper quadrant, started to day, described as sharp, intermittent, 9/10, aggravates with inspiration. He also complained of nausea and lightheadedness. He denies vomiting, fever, chills. Patient uses 4 L oxygen at home as needed. The patient is a candidate for laparoscopic cholecystectomy and would benefit from the procedure. However, due to the patients significant medical history, cardiac clearance is required prior to surgery. Additionally, the patient must undergo a Xarelto washout period of at least 5 days, with the last dose taken on 08/10. Past surgical history: 4 hernia repairs. Home medications: Enalapril, atorvastatin, Farxiga, furosemide, levothyroxine, rivaroxaban, pantoprazole Past Hospitalization: July 12, 2025 for acute cholecystitis, patient chose conservative management instead of surgery during that admission. Social & Personal history: Quit smoking 3 years ago, 10 pack per year. Denies alcohol, drug use. Lives in house with family, full code, next to kin is . Allergies: Penicillins, Shellfish Allergy Patient was examined at bedside today. Labs show neutrophilic leukocytosis. Patient is admitted for further evaluation and management. Eyes: No Pain, No Vision change, No Conjunctivae inflammation, No Eyelid inflammation, No Other, No Redness ENT: No Ear pain, No Ear discharge, No Nose pain, No Nose discharge, No Nose congestion, No Mouth pain, No Mouth swelling, No Throat pain, No Throat swelling, No Other Cardiovascular: No Chest Pain, No Palpitations, No Orthopnea, No Paroxysmal No Dyspnea, No Edema, Lt Headedness, No Other Respiratory: No Cough, No Dry, No Shortness of breath, No SOB with exertion, No Wheezing, No Hemoptysis, No Pleuritic Pain, No Sputum, No Other Gastrointestinal: Nausea, No Vomiting, RUQ Abdominal Pain, No Diarrhea, No Constipation, No Melena, No Hematochezia, No Other Genitourinary: No Dysuria, No Frequency, No Incontinence, No Hematuria, No Retention, No Other Musculoskeletal: No other, No neck pain, No shoulder pain, No arm pain, No back pain, No hand pain, No leg pain, No foot pain Skin: No Rash, No Lesions, No Jaundice, No Bruising, No Other Objective vital signs Vital Sign Date Time Temp Pulse Resp B/P (MAP) Pulse Ox O2 Delivery O2 Flow Rate FiO2 08/12/25 12:55 97.9 66 18 111/68 (82) 92 97.9 08/12/25 08:00 Nasal Cannula* 3 32 Total Intake and Output 08/11/25 08/11/25 08/12/25 15:00 23:00 07:00 Intake Total 750 ml Output Total 400 ml Balance 350 ml medications Current Medications Medications Dose Ordered Sig/Sergio Route Start Time Stop Time Status Last Admin Dose Admin Ondansetron HCl 4 mg Q4HP PRN IV 08/11/25 22:15 Pantoprazole Sodium 40 mg DAILY IV 08/12/25 10:00 08/12/25 08:50 40 MG Atorvastatin Calcium 20 mg HS PO 08/12/25 22:00 Metronidazole 100 ml @ 100 mls/hr Q8HR IV 08/12/25 06:00 08/12/25 14:17 100 MLS/HR Ceftriaxone Sodium 50 ml @ 100 mls/hr DAILY@2100 IV 08/12/25 21:00 Levothyroxine Sodium 25 mcg QAM@0600 PO 08/12/25 06:00 08/12/25 06:18 25 MCG Enalapril Maleate 15 mg DAILY PO 08/12/25 10:00 08/12/25 10:00 15 MG Zolpidem Tartrate 10 mg HSPRN PRN PO 08/11/25 23:15 Acetaminophen 650 mg Q6HP PO 08/12/25 06:00 Cancel Hydromorphone HCl 0.25 mg Q4HPRN PRN IV 08/12/25 05:15 08/12/25 09:02 0.25 MG Enoxaparin Sodium 90 mg Q12HR SC 08/12/25 22:00 UNV Examination General: Patient is in acute distress due to pain. Alert and oriented in person, place and time. Patient following commands. HEENT: Normocephalic, atraumatic, moist mucous membranes Respiratory/pulmonary: Clear lungs bilaterally, vesicular murmurs present in almost all lung ray, no associated crackles or wheezes. Cardiovascular: Normal heart sounds S1 and S2 with no associated murmurs Abdomen: Tenderness on light palpation in right upper quadrant. Positive Adamson's sign. Well-healed surgical scars in the lower abdomen. Extremities: There is no peripheral edema present at the lower extremities. Peripheral Pulses: 3+ Radial (R). 3+ Radial (L). 3+ Dorsalis pedis (R). 3+ Dorsalis pedis(L) Skin: No rashes or pruritus, there is no sacral edema present at this time. Neurological: Intact cranial nerves with no focal neurologic deficits laboratory and microbiology Laboratory Tests 08/12/25 11:42 08/12/25 06:03 Test 08/12/25 06:03 Range/Units Serum Glucose 104 74-106 mg/dL Labs and/or images reviewed: Labs reviewed by me, Image(s) reviewed by me Problem List/Assessment/Plan Problem List/Assessment/Plan Sepsis due to Acute cholecystitis Liver cirrhosis Tachycardia, tachypnea, Neutrophilic leukocytosis Liver US: Somewhat indeterminate study with gallstones, wall thickening, and positive sonographic Adamson's sign however no tense gallbladder distention and no significant surrounding inflammatory changes. Cirrhotic appearing liver. Blood culture ordered Cardiac clearance for laparoscopic cholecystectomy Xarelto washout of at least 5 days IV ceftriaxone, metronidazole IV NS bolus and maintenance ordered Hyperlipidemia Atorvastatin 40 mg p.o. Hypertension Chronic diastolic heart failure with EF 50% Continue enalapril Holding Farxiga, furosemide due to sepsis, soft blood pressure Hypothyroidism TSH 1.66 Continue levothyroxine 25 mcg p.o. Paroxysmal Atrial fibrillation CHADSVASc 2 On rivaroxaban, discontinued for eventual surgery. Lovenox therapeutic dose given EKG: Sinus rhythm. Prolonged IA interval. Borderline intraventricular conduction delay. Low voltage, precordial leads Hypomagnesemia Magnesium supplemented, recheck magnesium levels DIET: Full liquid DVT PROPHYLAXIS: Lovenox GI PROPHYLAXIS: Protonix Goals of care: Full code, discussed for >16 minutes on 08/12/25 Plan discussed with patient Plan discussed with Dr. Cole Plan discussed with: Patient (RN), Other Date of Service: Aug 12, 2025 Billing Provider: FRANCIS COLE MD Common Visit Codes: [id number] INP/OBS CARE(HIGH) FANG HERRERA RESIDENT Aug 12, 2025 15:34 FRANCIS COLE MD Aug 12, 2025 22:40
[2025-08-12] MEDS: ENOXAPARIN SOD 100 MG/1 ML SYRINGE SC SCH (21:08)
[2025-08-12] MEDS: ATORVASTATIN 20 MG TAB PO SCH (21:08)
[2025-08-12] MEDS: ZOLPIDEM TARTRATE 5 MG TAB PO PRN (21:08)
[2025-08-13] VITALS (10 sets, daily range): BP systolic 95–120; BP diastolic 52–73; PULSE 66–101; RESP 16–18; TEMP 97.1–101.4; O2SAT 90–94
[2025-08-13 06:38] LABS: Hematocrit 42.9 % (41.0-53.0); Hemoglobin 14.7 g/dL (13.5-17.5); Mean Corpuscular Hemoglobin 33.3 pg (28.0-32.0); Mean Corpuscular Volume 97.2 fL (80.0-100.0); Nucleated Red Blood Cells % 0.0 %
[2025-08-13 06:56] LABS: Alkaline Phosphatase 91 U/L (46-116); Anion Gap 7 (5-15); BUN/Creatinine Ratio 11.5 (10.0-20.0); Carbon Dioxide 24 mmol/L (20-31); Chloride 102 mmol/L (98-107); Potassium 3.6 mmol/L (3.5-5.1); Total Protein 6.3 g/dL (5.7-8.2)
[2025-08-13 06:57] LABS: Albumin 3.6 g/dL (3.2-4.8); Bilirubin, Total 1.2 mg/dL (0.2-1.0)
[2025-08-13 07:04] LABS: Alanine Aminotransferase 9 U/L (7-40); Blood Urea Nitrogen 6 mg/dL (9-23); Glucose 111 mg/dL (74-106); Sodium 133 mmol/L (136-145)
[2025-08-13 07:05] LABS: Calcium 8.6 mg/dL (8.7-10.4)
[2025-08-13] MEDS: PIPERACILLIN-TAZOB 3.375GM 100 ML IV ONE (10:00)
[2025-08-13] MEDS ORDERED: diphenhydrAMINE HCL 50 MG/1 ML VL IV PRN (11:45)
--- NOTE | 2025-08-13 12:18 | DVHPN2 ---
Progress Note - Surgical Date Seen: Aug 13, 2025 Post op day Post op day: 0 Subjective Review of Systems: Deferred Objective Vital signs Vital Sign Date Time Temp Pulse Resp B/P (MAP) Pulse Ox O2 Delivery O2 Flow Rate FiO2 08/13/25 10:18 88 18 108/53 08/13/25 09:04 98.4 91 98.4 08/13/25 08:00 Nasal Cannula* 3 32 Total Intake and Output 08/12/25 08/12/25 08/13/25 15:00 23:00 07:00 Intake Total 300 ml 1100 ml Output Total 500 ml 800 ml Balance -200 ml 300 ml Medications Current Medications Medications Dose Ordered Sig/Sergio Route Start Time Stop Time Status Last Admin Dose Admin Ondansetron HCl 4 mg Q4HP PRN IV 08/11/25 22:15 Pantoprazole Sodium 40 mg DAILY IV 08/12/25 10:00 08/13/25 10:03 40 MG Atorvastatin Calcium 20 mg HS PO 08/12/25 22:00 08/12/25 21:08 20 MG Levothyroxine Sodium 25 mcg QAM@0600 PO 08/12/25 06:00 08/13/25 05:18 25 MCG Zolpidem Tartrate 10 mg HSPRN PRN PO 08/11/25 23:15 08/12/25 21:08 10 MG Acetaminophen 650 mg Q6HP PO 08/12/25 06:00 Cancel Hydromorphone HCl 0.25 mg Q4HPRN PRN IV 08/12/25 05:15 08/13/25 10:18 0.25 MG Enoxaparin Sodium 90 mg Q12HR SC 08/12/25 22:00 08/13/25 10:04 90 MG Piperacillin Sod/ Tazobactam Sod 100 ml @ 25 mls/hr Q8HR IV 08/13/25 14:00 Diphenhydramine HCl 25 mg Q6HP PRN IV 08/13/25 11:45 Laboratory Laboratory Tests 08/13/25 05:59 Test 08/13/25 05:59 Range/Units Serum Glucose 111 H 74-106 mg/dL Microbiology Date/Time Source Procedure Growth Status 08/11/25 23:19 Blood Blood Culture - Preliminary NO GROWTH AFTER 24 HOURS OF INCUBATION. Resulted Examination: GENERAL:Normal, HEENT:Normal (No icterus), ABDOMEN:Abnormal (Globose, soft, depressible, right upper quadrant tenderness, no rebound, no guarding, low abdominal midline scar and right lower quadrant scar) Labs and/or images reviewed: Labs reviewed by me (Leukocytosis worsened 12 from 10) Problem List/Assessment/Plan Assessment and Plan Mr. Rubio is a 59-year-old male who presents with the acute cholecystitis. Ultrasound shows multiple stones in the gallbladder lumen and physical exam remarkable for tenderness in the right upper quadrant. Patient will benefit from laparoscopic cholecystectomy although given his past medical history he would need prior cardiac clearance and he will also need Xarelto washout of at least 5 days. Interval: Patient was febrile overnight to 101.4, although states that his pain is improving, he is still very tender during physical exam. If patient gets septic prior to his completed sterile to wash out he will need kaycee tube placement. 1. Prior to surgery patient will need Xarelto washout for 5 days (last taken on 08/10), and also cardiac clearance 2. If patient's conditions worsens prior to the 5 day washout, he will benefit from kaycee tube placement by Interventional Radiology 3. If patient conditions improve and he does not wish to wait the 5 days for the surgery, he can be discharged to complete a 10-14 day course of antibiotics by mouth 4. Low-fat diet Plan discussed with Plan discussed with: Patient Visit Coding Surgery Date of Service if different f: Aug 13, 2025 Billing Provider: DALIA SARMIENTO MD Surgery Visit Codes: [id number] INP/OBS CARE(HIGH) DALIA SARMIENTO MD Aug 13, 2025 12:18
[2025-08-13] MEDS: PIPERACILLIN-TAZOB 3.375GM 100 ML IV SCH (13:17)
--- NOTE | 2025-08-13 15:03 | DVHPNRES ---
Progress Note Date Seen: Aug 13, 2025 Resident Creating Document: FANG HERRERA Medical Necessity Reason Pt with a Central, PICC or Fol: No Subjective Review of Systems Patient is a 59-year-old male with past medical history of liver cirrhosis, hypertension, COPD, CAD s/p angiography no stents placed, cholecystitis, presented to [facility] ED with complaint of abdominal pain. The pain is located in right upper quadrant, started to day, described as sharp, intermittent, 9/10, aggravates with inspiration. He also complained of nausea and lightheadedness. He denies vomiting, fever, chills. Patient uses 4 L oxygen at home as needed. Abdominal ultrasound revealed multiple gallstones within the gallbladder lumen. The patient is a candidate for laparoscopic cholecystectomy and would benefit from the procedure. However, due to the patients significant medical history, cardiac clearance is required prior to surgery. Additionally, the patient must undergo a Xarelto washout period of at least 5 days, with the last dose taken on 08/10. 08/13: Patient was seen and examined at bedside. Overnight events were reviewed. Patient was febrile overnight with a temperature of 101.4F, although he reports some improvement in pain. Cardiac clearance is necessary before proceeding with surgery. Objective vital signs Vital Sign Date Time Temp Pulse Resp B/P (MAP) Pulse Ox O2 Delivery O2 Flow Rate FiO2 08/13/25 13:24 98.0 86 18 119/73 (88) 93 98.0 08/13/25 08:00 Nasal Cannula* 3 32 Total Intake and Output 08/12/25 08/12/25 08/13/25 15:00 23:00 07:00 Intake Total 300 ml 1100 ml Output Total 500 ml 800 ml Balance -200 ml 300 ml medications Current Medications Medications Dose Ordered Sig/Sergio Route Start Time Stop Time Status Last Admin Dose Admin Ondansetron HCl 4 mg Q4HP PRN IV 08/11/25 22:15 Pantoprazole Sodium 40 mg DAILY IV 08/12/25 10:00 08/13/25 10:03 40 MG Atorvastatin Calcium 20 mg HS PO 08/12/25 22:00 08/12/25 21:08 20 MG Levothyroxine Sodium 25 mcg QAM@0600 PO 08/12/25 06:00 08/13/25 05:18 25 MCG Zolpidem Tartrate 10 mg HSPRN PRN PO 08/11/25 23:15 08/12/25 21:08 10 MG Acetaminophen 650 mg Q6HP PO 08/12/25 06:00 Cancel Hydromorphone HCl 0.25 mg Q4HPRN PRN IV 08/12/25 05:15 08/13/25 10:18 0.25 MG Enoxaparin Sodium 90 mg Q12HR SC 08/12/25 22:00 08/13/25 10:04 90 MG Piperacillin Sod/ Tazobactam Sod 100 ml @ 25 mls/hr Q8HR IV 08/13/25 14:00 08/13/25 13:17 25 MLS/HR Diphenhydramine HCl 25 mg Q6HP PRN IV 08/13/25 11:45 Examination General: Patient is in acute distress due to pain. Alert and oriented in person, place and time. Patient following commands. HEENT: Normocephalic, atraumatic, moist mucous membranes Respiratory/pulmonary: Clear lungs bilaterally, vesicular murmurs present in almost all lung ray, no associated crackles or wheezes. Cardiovascular: Normal heart sounds S1 and S2 with no associated murmurs Abdomen: Tenderness on light palpation in right upper quadrant. Positive Adamson's sign. Well-healed surgical scars in the lower abdomen. Extremities: There is no peripheral edema present at the lower extremities. Peripheral Pulses: 3+ Radial (R). 3+ Radial (L). 3+ Dorsalis pedis (R). 3+ Dorsalis pedis(L) Skin: No rashes or pruritus, there is no sacral edema present at this time. Neurological: Intact cranial nerves with no focal neurologic deficits laboratory and microbiology Laboratory Tests 08/13/25 05:59 Test 08/13/25 05:59 Range/Units Serum Glucose 111 H 74-106 mg/dL Microbiology Date/Time Source Procedure Growth Status 08/11/25 23:19 Blood Blood Culture - Preliminary NO GROWTH AFTER 24 HOURS OF INCUBATION. Resulted Labs and/or images reviewed: Labs reviewed by me, Image(s) reviewed by me Problem List/Assessment/Plan Problem List/Assessment/Plan Sepsis due to Acute cholecystitis Liver cirrhosis Tachycardia, tachypnea, Neutrophilic leukocytosis Liver US: Somewhat indeterminate study with gallstones, wall thickening, and positive sonographic Adamson's sign however no tense gallbladder distention and no significant surrounding inflammatory changes. Cirrhotic appearing liver. Blood culture ordered Cardiac clearance for laparoscopic cholecystectomy Xarelto washout of at least 5 days IV ceftriaxone, metronidazole IV NS bolus and maintenance ordered Hyperlipidemia Atorvastatin 40 mg p.o. Hypertension Chronic diastolic heart failure with EF 50% Continue enalapril Holding Farxiga, furosemide due to sepsis, soft blood pressure Hypothyroidism TSH 1.66 Continue levothyroxine 25 mcg p.o. Paroxysmal Atrial fibrillation CHADSVASc 2 On rivaroxaban, discontinued for eventual surgery. Lovenox therapeutic dose given EKG: Sinus rhythm. Prolonged LA interval. Borderline intraventricular conduction delay. Low voltage, precordial leads Hypomagnesemia Magnesium supplemented, recheck magnesium levels DIET: Full liquid DVT PROPHYLAXIS: Lovenox GI PROPHYLAXIS: Protonix Goals of care: Full code, discussed for >16 minutes on 08/13/25 Plan discussed with patient Plan discussed with Dr. Cole Plan discussed with: Patient Date of Service: Aug 13, 2025 Billing Provider: FRANCIS COLE MD Common Visit Codes: [id number] INP/OBS CARE(HIGH) FANG HERRERA RESIDENT Aug 13, 2025 15:03 FRANCIS COLE MD Aug 13, 2025 23:48
--- NOTE | 2025-08-13 16:39 | DVHINCON2 ---
Date Seen: Aug 13, 2025 Referring Physician MD Elise Reason for Consultation Cardiac risk stratification History of Present Illness This is a 59-year-old man who presented to the emergency room via EMS with a chief complaint of abdominal pain. He has been diagnosed with acute cholecystitis undergoing evaluation by surgical team with requesting a cardiac risk stratification prior to surgical intervention. Denies chest pain, SOB, palpitations, diaphoresis, or syncopal events. States he is active and able to ambulate with the assistance. He takes his dogs out for walks on daily basis including METS >6. Denies exertional angina or dyspnea on exertion. The patient underwent a 12 lead electrocardiogram revealing a sinus rhythm with an associated first-degree atrioventricular block. Follows up in the outpatient setting with primary toddler guide, Dr. Milan. Significant medical history includes paroxysmal atrial fibrillation on Xarelto/amiodarone therapy, hypertension, dyslipidemia, hypothyroidism, COPD with home O2 dependence, liver cirrhosis, and diverticulitis. Past Medical History Past medical history reviewed. No other significant than mentioned above. Past Surgical History Hernia repairs x4 Family History: Cardiovascular disease G8 FATHER, Malignant neoplasm of breast G8 MOTHER, (BREAST CANCER) Family History Family history reviewed. Social History Denies the use of illicit drugs, alcohol, or tobacco use. 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 Quit tobacco a year ago including 40 pack-years. Quit alcohol two years ago. Allergies: Coded Allergies: Penicillins (Verified Allergy, Unknown, 09/22/18) Shellfish Allergy (Verified Allergy, Unknown, 09/22/18) Home Meds Active Scripts Furosemide (Lasix) 20 Mg Tb, 1 TAB PO DAILY, #90 TAB 1 Refill Prov:JOVI FIGUEROA MD 04/17/23 Enalapril Maleate (Enalapril Maleate) 5 Mg Tab, 1 TAB PO DAILY, #90 TAB 1 Refill Prov:JOVI FIGUEROA MD 04/17/23 Carvedilol (Coreg) 3.125 Mg Tab, 1 TAB PO BID, #180 TAB 3 Refills Prov:OJVI FIGUEROA MD 04/17/23 Dapagliflozin Propanediol (Farxiga) 10 Mg Tab, 10 MG PO DAILY, #90 TAB Prov:JOVI FIGUEROA MD 04/17/23 Atorvastatin Calcium (Lipitor) 40 Mg Tab, 1 TAB PO QPM, #90 TAB 1 Refill Prov:JOVI FIGUEROA MD 04/17/23 Amiodarone Hcl (Amiodarone Hcl) 200 Mg Tab, 1 TAB PO BID, #180 TAB 1 Refill Prov:JOVI FIGUEROA MD 04/17/23 Rivaroxaban (XARELTO) 20 Mg Tab, 1 TAB PO DAILY, #90 TAB 3 Refills Prov:JOVI FIGUEROA MD 04/17/23 Reported Medications Escitalopram Oxalate (ESCITALOPRAM OXALATE) 10 Mg Tab, 1 TAB PO DAILY, #30 TAB 3 Refills 03/25/25 Pantoprazole Sodium (PANTOPRAZOLE SODIUM) 40 Mg Inj, 40 MG PO, INJ 03/25/25 Levothyroxine Sodium (SYNTHROID TABLET) 50 Mcg Tb, 1 TAB PO DAILY, #30 TAB 5 Refills 03/25/25 Zolpidem Tartrate (Zolpidem Tartrate) 10 Mg Tab, 1 TAB PO QPM, #30 TAB 2 Refills 03/25/25 Carvedilol (Carvedilol) 3.125 Mg Tab, 1 TAB PO BID, #60 TAB 3 Refills 04/15/23 Furosemide (Furosemide) 20 Mg Tab, 1 TAB PO DAILY, #90 TAB 1 Refill 04/15/23 Home Meds Home medications reviewed. Current Medications Current Medications Medications (Trade) Dose Ordered Sig/Sergio Route PRN Reason Start Time Stop Time Status Last Admin Atorvastatin Calcium (Lipitor) 20 mg HS PO 08/12/25 22:00 08/12/25 21:08 Ceftriaxone Sodium 50 ml @ 100 mls/hr DAILY@2100 IV 08/12/25 21:00 08/13/25 09:50 DC 08/12/25 21:07 Enoxaparin Sodium (Lovenox) 90 mg Q12HR SC 08/12/25 22:00 08/13/25 10:04 Piperacillin Sod/ Tazobactam Sod 100 ml @ 25 mls/hr Q8HR IV 08/13/25 14:00 08/13/25 13:17 Diphenhydramine HCl (Benadryl Injection) 25 mg Q6HP PRN IV FOR ITCHING 08/13/25 11:45 Review of Systems Constitutional: No symptom reported Ears, Nose, & Throat: No symptom reported Eyes: No symptom reported Neurological: No symptoms reported Pulmonary/Respiratory: No symptom reported Cardiovascular: No symptom reported Gastrointestinal: Abdominal pain Genitourinary: No symptom reported Musculoskeletal: No symptom reported Skin: No symptom reported Psychiatric: No symptom reported Endocrine: No symptom reported Hemotologic/Lymphatic: No symptom reported Vital Signs Vital Signs Date Time Temp Pulse Resp B/P (MAP) Pulse Ox O2 Delivery O2 Flow Rate FiO2 08/13/25 15:32 86 18 119/73 08/13/25 13:24 98.0 93 98.0 08/13/25 08:00 Nasal Cannula* 3 32 Physical Exam General Appearance: Cooperative. Well developed. Well nourished. In no acute distress Head Exam: Normal inspection Neck Exam: Normal inspection. Non-tender. Normal alignment Pulmonary/Respiratory: Chest non-tender. Clear bilateral breath sounds Cardiovascular/Chest: Regular rate and rhythm. S1, S2. Sinus rhythm with first-degree AV block. No murmurs. No JVD. Peripheral Pulses: 2+ Radial (R). 2+ Radial (L). 2+ Pedal (R). 2+ Pedal (L) Abdominal Exam: Normal bowel sounds. Soft. Tender Ankle Exam: Negative ankle edema Lower extremities: Negative lower extremity edema Neuro/Mental Status: A&O x4. Coherent Thoughts/Psych: Normal thought pattern. Appropriate mood and affect. Good judgement and insight Appearance: In no acute distress Skin Exam: Normal inspection. Normal color. Warm. Dry Labs/Diagnostic Data Labs Test 08/13/25 10:50 08/13/25 05:59 08/12/25 09:24 08/12/25 06:03 Range/Units Lactic Acid Level 0.8 0.4-2.0 mmol/L White Blood Count 12.1 H 4.4-10.8 10^3/uL Red Blood Count 4.41 L 4.5-5.90 10^6/uL Hemoglobin 14.7 13.5-17.5 g/dL Hematocrit 42.9 41.0-53.0 % Mean Corpuscular Volume 97.2 80.0-100.0 fL Mean Corpuscular Hemoglobin 33.3 H 28.0-32.0 pg Mean Corpuscular Hemoglobin Concent 34.2 32.0-36.0 g/dL Red Cell Distribution Width 14.5 H 11.8-14.3 % Platelet Count 148 140-450 10^3/uL Mean Platelet Volume 8.1 6.9-10.8 fL Neutrophils (%) (Auto) 80.4 H 37.0-80.0 % Lymphocytes (%) (Auto) 8.7 L 10.0-50.0 % Monocytes (%) (Auto) 10.4 0.0-12.0 % Eosinophils (%) (Auto) 0.1 0.0-7.0 % Basophils (%) (Auto) 0.4 0.0-2.0 % Neutrophils # (Auto) 9.7 H 1.6-8.6 10 ^3/uL Lymphocytes # (Auto) 1.1 0.4-5.4 10 ^3/uL Monocytes # (Auto) 1.3 0-1.3 10 ^3/uL Eosinophils # (Auto) 0 0-0.8 10 ^3/uL Basophils # (Auto) 0 0-0.2 10 ^3/uL Nucleated Red Blood Cells 0.0 % Sodium Level 133 L 136-145 mmol/L Potassium Level 3.6 3.5-5.1 mmol/L Chloride Level 102 98-107 mmol/L Carbon Dioxide Level 24 20-31 mmol/L Anion Gap 7 5-15 Blood Urea Nitrogen 6 L 9-23 mg/dL Creatinine 0.52 L 0.700-1.30 mg/dL Glomerular Filtration Rate Calc 115 >90 mL/min BUN/Creatinine Ratio 11.5 10.0-20.0 Serum Glucose 111 H 74-106 mg/dL Calcium Level 8.6 L 8.7-10.4 mg/dL Total Bilirubin 1.2 H 0.2-1.0 mg/dL Aspartate Amino Transferase (AST) 17 13-40 U/L Alanine Aminotransferase (ALT) 9 7-40 U/L Alkaline Phosphatase 91 46-116 U/L Total Protein 6.3 5.7-8.2 g/dL Albumin 3.6 3.2-4.8 g/dL Urine Color Light-orange Yellow Urine Clarity Clear Clear Urine pH 5.5 5.0-9.0 Urine Specific Ayr 1.021 1.001-1.035 Urine Protein Negative Negative Urine Ketones Negative Negative Urine Blood Negative Negative /uL Urine Nitrite Negative Negative Urine Bilirubin Negative Negative Urine Urobilinogen 2 H Negative mg/dL Urine Leukocyte Esterase Negative Negative /uL Urine RBC 3 0 - 3 /hpf Urine Microscopic WBC 1 0-3 /HPF Urine Squamous Epithelial Cells None seen <5 /hpf Urine Bacteria None seen None Seen /hpf Urine Mucus Few None Seen Urine Glucose 3+ H Normal mg/dL Urine Opiates Screen Neg NEGATIVE Urine Fentanyl Screen Neg NEGATIVE Urine Barbiturates Screen Neg NEGATIVE Urine Phencyclidine Screen Neg NEGATIVE Urine Amphetamines Screen Neg NEGATIVE Urine Benzodiazepines Screen Neg NEGATIVE Urine Cocaine Screen Neg NEGATIVE Urine Cannabinoids Screen Neg NEGATIVE Magnesium Level 2.1 1.6-2.6 mg/dL Direct Bilirubin 0.6 H <0.3 mg/dL Test 08/11/25 21:27 08/11/25 16:33 Range/Units Phosphorus Level 3.0 2.4-5.1 mg/dL C-Reactive Protein High Sensitivity 4.03 H <1.0 mg/dL Triglycerides Level 72 < 150 mg/dL Cholesterol Level 90 < 200 mg/dL LDL Cholesterol 42 < 100 mg/dL HDL Cholesterol 36 L 40-59 mg/dL Lipase 25 12-53 U/L Prothrombin Time 14.4 H 9.3-11.8 sec Prothrombin Time INR 1.41 H 0.9-1.15 Activated Partial Thromboplast Time 44.4 H 24.5-34.5 SEC Hemoglobin A1c 5.7 <5.7 % A1C Vitamin B12 Level 350 211-911 pg/mL Vitamin D 25-Hydroxy 51.0 30.0-100 ng/mL Thyroid Stimulating Hormone (TSH) 1.66 0.55-4.78 uIU/mL Microbiology Date/Time Source Procedure Growth Status 08/11/25 23:19 Blood Blood Culture - Preliminary NO GROWTH AFTER 24 HOURS OF INCUBATION. Resulted Assessment Acute cholecystitis Preprocedural cardiovascular examination Paroxysmal atrial fibrillation, stage IIIA, now NSR (on Xarelto/amiodarone) Hypertension Dyslipidemia COPD with O2 dependence Thyroid disease Plan/Recommendation (Dr. Stephens) Recent transthoracic echocardiogram revealed an EF of 50% and a recent coronary angiogram without catheter-based intervention given negative coronary artery disease. Revised cardiac risk index (Get criteria): Class I at 1.1% risk of , [place] or cardiac arrest. Patient has no underlying history of congestive heart failure, coronary artery disease, and has an optimal functional capacity. Per Cardiology standpoint, the patient is at an acceptable-risk for moderate- risk surgery. Initiate amiodarone therapy. Continue therapeutic Lovenox and resume DOAC therapy within 24 hours if low post-procedural bleeding risk. There is no additional cardiac workup indicated prior to surgery. Thank you for allowing us to care for this patient. Please call with any questions or concerns. This medical document was created using an electronic medical record system with voice recognition software and computerized dictation system. Although this document has been carefully reviewed, there might still be some phonetic and typographical errors. Occasional wrong-word or ``sound-alike substitutions may have occurred due to the inherent limitations of voice recognition software. These areas are purely typographical due to imperfections of the software programs and do not reflect any compromise in the patient's medical care. Please read the chart carefully and recognize, using context, where these substitutions have occurred. Plan discussed with: Patient, Other NYHA Physical activity limitations: NA Date of Service: Aug 13, 2025 Billing Provider: RADHA CHACON Cardiology Common Codes: [id number] INP/OBS CARE (High) RADHA CHACON Aug 13, 2025 16:39
[2025-08-13] MEDS: AMIODARONE HCL 200 MG TAB PO SCH (21:14)
[2025-08-14] VITALS (8 sets, daily range): BP systolic 101–129; BP diastolic 49–83; PULSE 66–114; RESP 14–18; TEMP 97–98.5; O2SAT 90–98
[2025-08-14 05:08] LABS: Hematocrit 42.7 % (41.0-53.0); Hemoglobin 14.9 g/dL (13.5-17.5); Mean Corpuscular Hemoglobin 33.9 pg (28.0-32.0); Mean Corpuscular Volume 97.2 fL (80.0-100.0); Nucleated Red Blood Cells % 0.1 %
[2025-08-14 05:28] LABS: Alanine Aminotransferase 10 U/L (7-40); Alkaline Phosphatase 96 U/L (46-116); Anion Gap 9 (5-15); Carbon Dioxide 25 mmol/L (20-31); Glucose 105 mg/dL (74-106); Potassium 3.8 mmol/L (3.5-5.1); Total Protein 6.6 g/dL (5.7-8.2)
[2025-08-14 05:29] LABS: Albumin 3.7 g/dL (3.2-4.8)
[2025-08-14 05:32] LABS: BUN/Creatinine Ratio 10.0 (10.0-20.0); Blood Urea Nitrogen < 5 mg/dL (9-23); Calcium 8.6 mg/dL (8.7-10.4); Chloride 97 mmol/L (98-107); Sodium 131 mmol/L (136-145)
[2025-08-14 05:38] LABS: Bilirubin, Total 1.0 mg/dL (0.2-1.0)
--- NOTE | 2025-08-14 10:21 | DVHPN2 ---
Progress Note - Surgical Date Seen: Aug 14, 2025 Post op day Post op day: 0 Subjective Patient reports: Feels better (Patient states pain is improving although still present, tolerating diet.) Review of Systems: Deferred Objective Vital signs Vital Sign Date Time Temp Pulse Resp B/P (MAP) Pulse Ox O2 Delivery O2 Flow Rate FiO2 08/14/25 10:12 73 16 101/75 08/14/25 08:40 97.0 92 97.0 08/13/25 20:00 Nasal Cannula* 3 32 Total Intake and Output 08/13/25 08/13/25 08/14/25 15:00 23:00 07:00 Intake Total 950 ml 1300 ml 430 ml Balance 950 ml 1300 ml 430 ml Medications Current Medications Medications Dose Ordered Sig/Sergio Route Start Time Stop Time Status Last Admin Dose Admin Ondansetron HCl 4 mg Q4HP PRN IV 08/11/25 22:15 Pantoprazole Sodium 40 mg DAILY IV 08/12/25 10:00 08/14/25 09:37 40 MG Atorvastatin Calcium 20 mg HS PO 08/12/25 22:00 08/13/25 21:14 20 MG Levothyroxine Sodium 25 mcg QAM@0600 PO 08/12/25 06:00 08/14/25 05:24 25 MCG Zolpidem Tartrate 10 mg HSPRN PRN PO 08/11/25 23:15 08/13/25 21:14 10 MG Acetaminophen 650 mg Q6HP PO 08/12/25 06:00 Cancel Hydromorphone HCl 0.25 mg Q4HPRN PRN IV 08/12/25 05:15 08/14/25 10:12 0.25 MG Enoxaparin Sodium 90 mg Q12HR SC 08/12/25 22:00 08/14/25 09:37 90 MG Piperacillin Sod/ Tazobactam Sod 100 ml @ 25 mls/hr Q8HR IV 08/13/25 14:00 08/14/25 05:26 25 MLS/HR Diphenhydramine HCl 25 mg Q6HP PRN IV 08/13/25 11:45 Amiodarone HCl 200 mg Q12HR PO 08/13/25 22:00 08/14/25 09:36 200 MG Laboratory Laboratory Tests 08/14/25 03:22 Test 08/14/25 03:22 Range/Units Serum Glucose 105 74-106 mg/dL Microbiology Date/Time Source Procedure Growth Status 08/11/25 23:19 Blood Blood Culture - Preliminary NO GROWTH AFTER 48 HOURS OF INCUBATION. Resulted Examination: GENERAL:Normal, HEENT:Normal (No icterus), ABDOMEN:Abnormal (Globose, soft, depressible, lower midline scar and right lower quadrant scar healed, right upper quadrant tenderness, no rebound, no guarding) Labs and/or images reviewed: Labs reviewed by me (Leukocytosis downtrending 8.8 from 12.1) Problem List/Assessment/Plan Assessment and Plan Mr. Rubio is a 59-year-old male who presents with the acute cholecystitis. Ultrasound shows multiple stones in the gallbladder lumen and physical exam remarkable for tenderness in the right upper quadrant. Patient will benefit from laparoscopic cholecystectomy although given his past medical history he would need prior cardiac clearance and he will also need Xarelto washout of at least 5 days. Interval: Vitals within normal limits today, patient feeling slightly better although leach tank tender to the right upper quadrant. Cardiology stated patient is moderate cardiac risk for surgery. We will plan for surgery, likely Saturday. 1. Prior to surgery patient will need Xarelto washout for 5 days (last taken on 08/10), and also cardiac clearance 2. If patient's conditions worsens prior to the 5 day washout, he will benefit from kaycee tube placement by Interventional Radiology 3. Low-fat diet Plan discussed with Plan discussed with: Patient Visit Coding Surgery Date of Service if different f: Aug 14, 2025 Billing Provider: DALIA SARMIENTO MD Surgery Visit Codes: [id number] INP/OBS CARE(HIGH) DALIA SARMIENTO MD Aug 14, 2025 10:21
--- NOTE | 2025-08-14 15:38 | DVHPNRES ---
Progress Note Date Seen: Aug 14, 2025 Resident Creating Document: FANG HERRERA Medical Necessity Reason Pt with a Central, PICC or Fol: No Subjective Review of Systems Patient is a 59-year-old male with past medical history of liver cirrhosis, hypertension, COPD, CAD s/p angiography no stents placed, cholecystitis, presented to [facility] ED with complaint of abdominal pain. The pain is located in right upper quadrant, started to day, described as sharp, intermittent, 9/10, aggravates with inspiration. He also complained of nausea and lightheadedness. He denies vomiting, fever, chills. Patient uses 4 L oxygen at home as needed. Abdominal ultrasound revealed multiple gallstones within the gallbladder lumen. The patient is a candidate for laparoscopic cholecystectomy and would benefit from the procedure. However, due to the patients significant medical history, cardiac clearance is required prior to surgery. Additionally, the patient must undergo a Xarelto washout period of at least 5 days, with the last dose taken on 08/10. 08/13: Patient was seen and examined at bedside. Overnight events were reviewed. Patient was febrile overnight with a temperature of 101.4?F, although he reports some improvement in pain. Cardiac clearance is necessary before proceeding with surgery. 08/14: The patient's vital signs are within normal limits today. He reports feeling slightly better overall, although he continues to experience tenderness in the right upper quadrant. Cardiology has evaluated the patient and determined that he is at moderate cardiac risk for surgery. Surgical planning is underway, with the procedure scheduled for Saturday. Objective vital signs Vital Sign Date Time Temp Pulse Resp B/P (MAP) Pulse Ox O2 Delivery O2 Flow Rate FiO2 08/14/25 12:46 97.6 74 14 102/60 (74) 95 97.6 08/14/25 08:00 Nasal Cannula* 3 32 Total Intake and Output 08/13/25 08/13/25 08/14/25 15:00 23:00 07:00 Intake Total 950 ml 1300 ml 430 ml Balance 950 ml 1300 ml 430 ml medications Current Medications Medications Dose Ordered Sig/Sergio Route Start Time Stop Time Status Last Admin Dose Admin Ondansetron HCl 4 mg Q4HP PRN IV 08/11/25 22:15 Pantoprazole Sodium 40 mg DAILY IV 08/12/25 10:00 08/14/25 09:37 40 MG Atorvastatin Calcium 20 mg HS PO 08/12/25 22:00 08/13/25 21:14 20 MG Levothyroxine Sodium 25 mcg QAM@0600 PO 08/12/25 06:00 08/14/25 05:24 25 MCG Zolpidem Tartrate 10 mg HSPRN PRN PO 08/11/25 23:15 08/13/25 21:14 10 MG Acetaminophen 650 mg Q6HP PO 08/12/25 06:00 Cancel Hydromorphone HCl 0.25 mg Q4HPRN PRN IV 08/12/25 05:15 08/14/25 10:12 0.25 MG Enoxaparin Sodium 90 mg Q12HR SC 08/12/25 22:00 08/14/25 09:37 90 MG Piperacillin Sod/ Tazobactam Sod 100 ml @ 25 mls/hr Q8HR IV 08/13/25 14:00 08/14/25 05:26 25 MLS/HR Diphenhydramine HCl 25 mg Q6HP PRN IV 08/13/25 11:45 Amiodarone HCl 200 mg Q12HR PO 08/13/25 22:00 08/14/25 09:36 200 MG Examination General: Patient is in acute distress due to pain. Alert and oriented in person, place and time. Patient following commands. HEENT: Normocephalic, atraumatic, moist mucous membranes Respiratory/pulmonary: Clear lungs bilaterally, vesicular murmurs present in almost all lung ray, no associated crackles or wheezes. Cardiovascular: Normal heart sounds S1 and S2 with no associated murmurs Abdomen: Tenderness on light palpation in right upper quadrant. Positive Adamson's sign. Well-healed surgical scars in the lower abdomen. Extremities: There is no peripheral edema present at the lower extremities. Peripheral Pulses: 3+ Radial (R). 3+ Radial (L). 3+ Dorsalis pedis (R). 3+ Dorsalis pedis(L) Skin: No rashes or pruritus, there is no sacral edema present at this time. Neurological: Intact cranial nerves with no focal neurologic deficits laboratory and microbiology Laboratory Tests 08/14/25 03:22 Test 08/14/25 03:22 Range/Units Serum Glucose 105 74-106 mg/dL Microbiology Date/Time Source Procedure Growth Status 08/11/25 23:19 Blood Blood Culture - Preliminary NO GROWTH AFTER 48 HOURS OF INCUBATION. Resulted Labs and/or images reviewed: Labs reviewed by me, Image(s) reviewed by me Problem List/Assessment/Plan Problem List/Assessment/Plan Sepsis due to Acute cholecystitis Liver cirrhosis Tachycardia, tachypnea, Neutrophilic leukocytosis Liver US: Somewhat indeterminate study with gallstones, wall thickening, and positive sonographic Adamson's sign however no tense gallbladder distention and no significant surrounding inflammatory changes. Cirrhotic appearing liver. Blood culture ordered Cardiac cleared Laparoscopic cholecystectomy on Saturday (08/16/25) Xarelto washout of at least 5 days IV ceftriaxone, metronidazole IV NS bolus and maintenance ordered Hyperlipidemia Atorvastatin 40 mg p.o. Hypertension Chronic diastolic heart failure with EF 50% Continue enalapril Holding Farxiga, furosemide due to sepsis, soft blood pressure Hypothyroidism TSH 1.66 Continue levothyroxine 25 mcg p.o. Paroxysmal Atrial fibrillation CHADSVASc 2 On rivaroxaban, discontinued for eventual surgery. Lovenox therapeutic dose given EKG: Sinus rhythm. Prolonged NV interval. Borderline intraventricular conduction delay. Low voltage, precordial leads Hypomagnesemia Magnesium supplemented, recheck magnesium levels DIET: Full liquid DVT PROPHYLAXIS: Lovenox GI PROPHYLAXIS: Protonix Goals of care: Full code, discussed for >16 minutes on 08/14/25 Plan discussed with patient Plan discussed with Dr. Cole Plan discussed with: Patient (RN), Other My Orders My Orders Orders - FANG HERRERA Procedure Category Date Status Time Complete Blood Count LAB 08/15/25 Verified 04:00 Comprehensive LAB 08/15/25 Verified Metabolic Panel 04:00 Date of Service: Aug 14, 2025 Billing Provider: FRANCIS COLE MD Common Visit Codes: [id number] INP/OBS CARE(HIGH) FANG HERRERA Aug 14, 2025 15:38 FRANCIS COLE MD Aug 15, 2025 08:17
[2025-08-14] MEDS ORDERED: LACTULOSE 20Gm/30ML SOLN PO PRN (18:00)
[2025-08-14] MEDS: DOCUSATE SOD 100 MG CAP PO SCH (21:12)
[2025-08-15] VITALS (8 sets, daily range): BP systolic 97–129; BP diastolic 53–83; PULSE 63–107; RESP 16–18; TEMP 97.2–98.2; O2SAT 90–100
[2025-08-15 05:09] LABS: Hematocrit 41.1 % (41.0-53.0); Hemoglobin 14.3 g/dL (13.5-17.5); Mean Corpuscular Hemoglobin 33.7 pg (28.0-32.0); Mean Corpuscular Volume 96.6 fL (80.0-100.0); Nucleated Red Blood Cells % 0.0 %
[2025-08-15 05:51] LABS: Albumin 3.6 g/dL (3.2-4.8); Anion Gap 10 (5-15); Calcium 8.8 mg/dL (8.7-10.4); Carbon Dioxide 25 mmol/L (20-31); Potassium 3.7 mmol/L (3.5-5.1); Total Protein 6.5 g/dL (5.7-8.2)
[2025-08-15 05:57] LABS: Alanine Aminotransferase 72 U/L (7-40); Alkaline Phosphatase 187 U/L (46-116); BUN/Creatinine Ratio 11.1 (10.0-20.0); Bilirubin, Total 2.3 mg/dL (0.2-1.0); Blood Urea Nitrogen < 5 mg/dL (9-23); Chloride 97 mmol/L (98-107); Glucose 130 mg/dL (74-106); Sodium 132 mmol/L (136-145)
[2025-08-15] MEDS: ONDANSETRON HCL 4 MG/2 ML VIAL IV PRN (08:54)
--- NOTE | 2025-08-15 16:34 | DVHPNRES ---
Progress Note Date Seen: Aug 15, 2025 Resident Creating Document: JOSE MANUEL ORR RESIDENT Medical Necessity Reason Pt with a Central, PICC or Fol: No Subjective Review of Systems Joanne Patient is a 59-year-old male with past medical history of liver cirrhosis, hypertension, COPD, CAD s/p angiography no stents placed, cholecystitis, presented to [facility] ED with complaint of abdominal pain. The pain is located in right upper quadrant, started to day, described as sharp, intermittent, 9/10, aggravates with inspiration. He also complained of nausea and lightheadedness. He denies vomiting, fever, chills. Patient uses 4 L oxygen at home as needed. Abdominal ultrasound revealed multiple gallstones within the gallbladder lumen. The patient is a candidate for laparoscopic cholecystectomy and would benefit from the procedure. However, due to the patients significant medical history, cardiac clearance is required prior to surgery. Additionally, the patient must undergo a Xarelto washout period of at least 5 days, with the last dose taken on 08/10. The patient was seen and examined at bedside. Overnight events were reviewed. The patient complained of constipation for 5 days after admission, however he reports having 2 bowel movements today. No other new complaints reported. Objective vital signs Vital Sign Date Time Temp Pulse Resp B/P (MAP) Pulse Ox O2 Delivery O2 Flow Rate FiO2 08/15/25 12:37 98.2 77 16 123/71 (88) 91 98.2 08/15/25 08:14 Nasal Cannula* 3 32 Total Intake and Output 08/14/25 08/14/25 08/15/25 15:00 23:00 07:00 Intake Total 900 ml 800 ml Output Total 800 ml 950 ml Balance 100 ml -150 ml medications Current Medications Medications Dose Ordered Sig/Sergio Route Start Time Stop Time Status Last Admin Dose Admin Ondansetron HCl 4 mg Q4HP PRN IV 08/11/25 22:15 08/15/25 08:54 4 MG Pantoprazole Sodium 40 mg DAILY IV 08/12/25 10:00 08/15/25 10:20 40 MG Atorvastatin Calcium 20 mg HS PO 08/12/25 22:00 08/14/25 21:13 20 MG Levothyroxine Sodium 25 mcg QAM@0600 PO 08/12/25 06:00 08/15/25 05:20 25 MCG Zolpidem Tartrate 10 mg HSPRN PRN PO 10/15/25 23:15 08/14/25 21:12 10 MG Acetaminophen 650 mg Q6HP PO 08/12/25 06:00 Cancel Hydromorphone HCl 0.25 mg Q4HPRN PRN IV 08/12/25 05:15 08/15/25 10:54 0.25 MG Enoxaparin Sodium 90 mg Q12HR SC 08/12/25 22:00 08/15/25 10:20 90 MG Piperacillin Sod/ Tazobactam Sod 100 ml @ 25 mls/hr Q8HR IV 08/13/25 14:00 08/15/25 14:29 25 MLS/HR Diphenhydramine HCl 25 mg Q6HP PRN IV 08/13/25 11:45 Amiodarone HCl 200 mg Q12HR PO 08/13/25 22:00 08/15/25 10:20 200 MG Docusate Sodium 100 mg BID PO 08/14/25 22:00 08/15/25 10:20 100 MG Lactulose 30 ml DAILYPRN PRN PO 08/14/25 18:00 Examination Examination General: Patient is in acute distress due to pain. Alert and oriented in person, place and time. Patient following commands. HEENT: Normocephalic, atraumatic, moist mucous membranes Respiratory/pulmonary: Clear lungs bilaterally, vesicular murmurs present in almost all lung ray, no associated crackles or wheezes. Cardiovascular: Normal heart sounds S1 and S2 with no associated murmurs Abdomen: Tenderness on light palpation in right upper quadrant. Positive Adamson's sign. Well-healed surgical scars in the lower abdomen. Extremities: There is no peripheral edema present at the lower extremities. Peripheral Pulses: 3+ Radial (R). 3+ Radial (L). 3+ Dorsalis pedis (R). 3+ Dorsalis pedis(L) Skin: No rashes or pruritus, there is no sacral edema present at this time. Neurological: Intact cranial nerves with no focal neurologic deficits Pt is lying on bed General Appearance: Alert, Oriented X3, Cooperative, Mild distress HEENT: Atraumatic, Mucous membranes moist/pink Respiratory: Clear to auscultation, Normal air movement, No added sounds Cardiovascular: Regular rate, Normal S1, Normal S2, No murmurs Abdominal/ : Active bowel sounds, Soft, no distention, no tenderness Extremities: No edema, Normal pulses, No tenderness/swelling Skin: No Significant rash, except past surgical scars Neuro: Normal speech, sensorimotor deficits none Psych/Mental Status: Mental status NL, Mood NL Nurse was there as cardroom plastic card grader during examination laboratory and microbiology Laboratory Tests 08/15/25 04:51 Test 08/15/25 04:51 Range/Units Serum Glucose 130 H 74-106 mg/dL Microbiology Date/Time Source Procedure Growth Status 08/11/25 23:19 Blood Blood Culture - Preliminary NO GROWTH AFTER 72 HOURS OF INCUBATION. Resulted Labs and/or images reviewed: Labs reviewed by me, Image(s) reviewed by me Problem List/Assessment/Plan Problem List/Assessment/Plan Sepsis due to Acute cholecystitis Liver cirrhosis Tachycardia, tachypnea, Neutrophilic leukocytosis Liver US: Somewhat indeterminate study with gallstones, wall thickening, and positive sonographic Adamson's sign however no tense gallbladder distention and no significant surrounding inflammatory changes. Cirrhotic appearing liver. Blood culture ordered Cardiac cleared According to Dr. Martinez, if the pain worsens before 5 days washout period of Xarelto patient will be benefited from kaycee tube placed by IR, however patient declined at this moment. Laparoscopic cholecystectomy on Saturday (08/16/25) Xarelto washout of at least 5 days IV ceftriaxone, metronidazole IV NS bolus and maintenance ordered Hyperlipidemia Atorvastatin 40 mg p.o. Hypertension Chronic diastolic heart failure with EF 50% Continue enalapril Holding Farxiga, furosemide due to sepsis, soft blood pressure Hypothyroidism TSH 1.66 Continue levothyroxine 25 mcg p.o. Paroxysmal Atrial fibrillation CHADSVASc 2 On rivaroxaban, discontinued for eventual surgery. Lovenox therapeutic dose given EKG: Sinus rhythm. Prolonged MI interval. Borderline intraventricular conduction delay. Low voltage, precordial leads Hypomagnesemia Magnesium supplemented, recheck magnesium levels DIET: Full liquid DVT PROPHYLAXIS: Lovenox GI PROPHYLAXIS: Protonix Goals of care: Full code, discussed for >16 minutes on 08/14/25 Plan discussed with patient Plan discussed with Dr. Cole Plan discussed with: Patient, Other (RN) Dietary Evaluation Review Comments: 1) Advance to Hepatic 80g Pro diet when medically feasible 2) Encourage optimal PO intake 3) Follow-up with cardiology and gastroenterology/hepatology 4) Continue to monitor I&O, labs, and skin integrit Expected Outcomes/Goals: 1) appetite and labs to improve 2) f/u in 3-5 days Date of Service: Aug 15, 2025 Billing Provider: FRANCIS COLE MD Common Visit Codes: [id number] INP/OBS CARE(HIGH) JOSE MANUEL ORR RESIDENT Aug 15, 2025 16:34 FRANCIS COLE MD Aug 15, 2025 22:14
[2025-08-16] VITALS (8 sets, daily range): BP systolic 107–132; BP diastolic 60–76; PULSE 58–95; RESP 14–19; TEMP 97.2–98.8; O2SAT 91–95
[2025-08-16 07:57] LABS: Hematocrit 41.2 % (41.0-53.0); Hemoglobin 14.3 g/dL (13.5-17.5); Mean Corpuscular Hemoglobin 34.0 pg (28.0-32.0); Mean Corpuscular Volume 98.1 fL (80.0-100.0); Nucleated Red Blood Cells % 0.1 %
[2025-08-16 08:17] LABS: Anion Gap 8 (5-15); Carbon Dioxide 25 mmol/L (20-31); Potassium 3.8 mmol/L (3.5-5.1)
[2025-08-16 08:18] LABS: Calcium 8.7 mg/dL (8.7-10.4)
[2025-08-16 08:19] LABS: Chloride 98 mmol/L (98-107); Sodium 131 mmol/L (136-145)
[2025-08-16 08:23] LABS: BUN/Creatinine Ratio 11.4 (10.0-20.0); Blood Urea Nitrogen < 5 mg/dL (9-23); Glucose 116 mg/dL (74-106)
[2025-08-16 11:23] LABS: Albumin 3.3 g/dL (3.2-4.8); Total Protein 5.8 g/dL (5.7-8.2)
[2025-08-16 11:24] LABS: Alanine Aminotransferase 97.0 U/L (7-40); Alkaline Phosphatase 247.0 U/L (46-116); Bilirubin, Direct 3.6 mg/dL (<0.3); Bilirubin, Total 4.9 mg/dL (0.2-1.0)
--- NOTE | 2025-08-16 12:36 | DVHPN2 ---
Progress Note - Surgical Date Seen: Aug 16, 2025 Post op day Post op day: 0 Subjective Patient reports: Feels better (Pain much improved, tolerating diet.) Review of Systems: Deferred Objective Vital signs Vital Sign Date Time Temp Pulse Resp B/P (MAP) Pulse Ox O2 Delivery O2 Flow Rate FiO2 08/16/25 11:22 77 18 118/69 08/16/25 09:00 98.8 91 98.8 08/16/25 08:00 Nasal Cannula* 3 32 Total Intake and Output 08/15/25 08/15/25 08/16/25 15:00 23:00 07:00 Intake Total 100 ml 1000 ml 900 ml Output Total 700 ml 600 ml Balance 100 ml 300 ml 300 ml Medications Current Medications Medications Dose Ordered Sig/Sergio Route Start Time Stop Time Status Last Admin Dose Admin Ondansetron HCl 4 mg Q4HP PRN IV 08/11/25 22:15 08/15/25 08:54 4 MG Pantoprazole Sodium 40 mg DAILY IV 08/12/25 10:00 08/16/25 10:28 40 MG Atorvastatin Calcium 20 mg HS PO 08/12/25 22:00 08/15/25 21:11 20 MG Levothyroxine Sodium 25 mcg QAM@0600 PO 08/12/25 06:00 08/15/25 05:20 25 MCG Zolpidem Tartrate 10 mg HSPRN PRN PO 08/11/25 23:15 08/15/25 23:19 10 MG Acetaminophen 650 mg Q6HP PO 08/12/25 06:00 Cancel Hydromorphone HCl 0.25 mg Q4HPRN PRN IV 08/12/25 05:15 08/16/25 11:22 0.25 MG Enoxaparin Sodium 90 mg Q12HR SC 08/12/25 22:00 Hold 08/15/25 10:20 90 MG Piperacillin Sod/ Tazobactam Sod 100 ml @ 25 mls/hr Q8HR IV 08/13/25 14:00 08/16/25 06:00 25 MLS/HR Diphenhydramine HCl 25 mg Q6HP PRN IV 08/13/25 11:45 Amiodarone HCl 200 mg Q12HR PO 08/13/25 22:00 08/16/25 10:00 200 MG Docusate Sodium 100 mg BID PO 08/14/25 22:00 08/16/25 10:00 100 MG Lactulose 30 ml DAILYPRN PRN PO 08/14/25 18:00 Laboratory Laboratory Tests 08/16/25 06:58 Test 08/16/25 06:58 Range/Units Serum Glucose 116 H 74-106 mg/dL Microbiology Date/Time Source Procedure Growth Status 08/11/25 23:19 Blood Blood Culture - Preliminary NO GROWTH AFTER 72 HOURS OF INCUBATION. Resulted Examination: GENERAL:Normal, HEENT:Abnormal (Scleral icterus), ABDOMEN:Normal (Nondistended, soft, depressible, midline and right lower quadrant quadrant scars well healed, minimal right upper quadrant tenderness, no rebound, no guarding) Labs and/or images reviewed: Labs reviewed by me (No leukocytosis, elevated total bilirubin level to 5 with direct component of 3.6) Problem List/Assessment/Plan Assessment and Plan Mr. Rubio is a 59-year-old male who presents with the acute cholecystitis. Ultrasound shows multiple stones in the gallbladder lumen and physical exam remarkable for tenderness in the right upper quadrant. Patient will benefit from laparoscopic cholecystectomy although given his past medical history he would need prior cardiac clearance and he will also need Xarelto washout of at least 5 days. Interval: Patient much improved from pain standpoint. Today he is jaundiced and total bilirubin level is 4.9 and direct component of 3.6, this represents choledochal lithiasis. We will still proceed with surgery tomorrow, laparoscopic cholecystectomy. Procedure, risks, benefits, complications, and alternatives discussed with the patient. 1. Prior to surgery patient will need Xarelto washout for 5 days (last taken on 08/10), and also cardiac clearance 2. On-call to OR tomorrow for laparoscopic cholecystectomy, possible open 3. Low-fat diet with NPO at midnight 4. A.m. labs ordered: CBC, CMP, direct bilirubin level, type and screen My Orders My Orders Orders - DALIA SARMIENTO MD Procedure Category Date Status Time Npo After Midnight ZURDO 08/15/25 In Process 18:01 Full Liq Diet DIET 08/16/25 Transmitted Lunch Npo After Midnight ZURDO 08/16/25 In Process 11:03 Plan discussed with Plan discussed with: Patient Visit Coding Surgery Date of Service if different f: Aug 16, 2025 Billing Provider: DALIA SARMIENTO MD Surgery Visit Codes: [id number] INP/OBS CARE(HIGH) DALIA SARMIENTO MD Aug 16, 2025 12:36
[2025-08-16 13:48] LABS: INR 1.13 (0.9-1.15); Partial Thromboplastin Time 30.8 SEC (24.5-34.5); Prothrombin Time 11.8 sec (9.3-11.8)
--- NOTE | 2025-08-16 15:34 | DVHPNRES ---
Progress Note Date Seen: Aug 16, 2025 Resident Creating Document: HARVEY BERNSTEIN RESIDENT Medical Necessity Reason Pt with a Central, PICC or Fol: No Subjective Review of Systems Brief history on admission: This is a 59-year-old male with past medical history of liver cirrhosis, hypertension, COPD, CAD s/p angiography no stents placed, cholecystitis, presented to the ER with chief complain of abdominal pain. The pain is located in right upper quadrant, started to day, described as sharp, intermittent, 9/10, aggravates with inspiration. He also complained of nausea and lightheadedness. He denies vomiting, fever, chills. Patient uses 4 L oxygen at home as needed. Previous hospitalization: July 12, 2025 for acute cholecystitis, patient chose conservative management instead of surgery during that admission. PMHx: liver cirrhosis, hypertension, COPD, CAD s/p angiography, cholecystitis, diverticulitis PSHx: 4 hernia repairs Social history: Quit smoking 3 years ago, 10 pack per year. Denies alcohol, drug use. Lives in house with family, full code, next to kin is . Home medication: Enalapril, atorvastatin, Farxiga, furosemide, levothyroxine, rivaroxaban, pantoprazole Allergic history: Penicillin, shellfish ROS: Constitutional: Denies weight loss, fever and chills. HEENT: Denies changes in vision and hearing. Respiratory: Denies shortness of breath and cough Cardiovascular: Denies chest discomfort or palpitations GI: RUQ Abdominal pain, nausea, lightheadedness : Denies dysuria and urinary frequency. Musculoskeletal: Denies myalgias and joint pain Skin: Denies rash and pruritus. Neurological: Denies dizziness, headache, vision or hearing problems 08/16/25: Patient was seen at bedside today. Patient is complaining of right upper quadrant abdominal pain. Patient was awaiting Xarelto washout for 5 days before cholecystectomy. Today, Liver panel shows T bilirubin, AST, ALT, ALP trending up. Scheduled for cholecystectomy and IOC tomorrow. Objective vital signs Vital Sign Date Time Temp Pulse Resp B/P (MAP) Pulse Ox O2 Delivery O2 Flow Rate FiO2 08/16/25 13:00 98.0 78 18 113/67 (82) 95 98.0 08/16/25 08:00 Nasal Cannula* 3 32 Total Intake and Output 08/15/25 08/15/25 08/16/25 15:00 23:00 07:00 Intake Total 100 ml 1000 ml 900 ml Output Total 700 ml 600 ml Balance 100 ml 300 ml 300 ml medications Current Medications Medications Dose Ordered Sig/Sergio Route Start Time Stop Time Status Last Admin Dose Admin Ondansetron HCl 4 mg Q4HP PRN IV 08/11/25 22:15 08/15/25 08:54 4 MG Pantoprazole Sodium 40 mg DAILY IV 08/12/25 10:00 08/16/25 10:28 40 MG Atorvastatin Calcium 20 mg HS PO 08/12/25 22:00 08/15/25 21:11 20 MG Levothyroxine Sodium 25 mcg QAM@0600 PO 08/12/25 06:00 08/15/25 05:20 25 MCG Zolpidem Tartrate 10 mg HSPRN PRN PO 08/11/25 23:15 08/15/25 23:19 10 MG Acetaminophen 650 mg Q6HP PO 08/12/25 06:00 Cancel Hydromorphone HCl 0.25 mg Q4HPRN PRN IV 08/12/25 05:15 08/16/25 11:22 0.25 MG Enoxaparin Sodium 90 mg Q12HR SC 08/12/25 22:00 Hold 08/15/25 10:20 90 MG Piperacillin Sod/ Tazobactam Sod 100 ml @ 25 mls/hr Q8HR IV 08/13/25 14:00 08/16/25 06:00 25 MLS/HR Diphenhydramine HCl 25 mg Q6HP PRN IV 08/13/25 11:45 Amiodarone HCl 200 mg Q12HR PO 08/13/25 22:00 08/16/25 10:00 200 MG Docusate Sodium 100 mg BID PO 08/14/25 22:00 08/16/25 10:00 100 MG Lactulose 30 ml DAILYPRN PRN PO 08/14/25 18:00 Examination General: Patient alert and oriented in person, place and time. Patient following commands. HEENT: Normocephalic, atraumatic, moist mucous membranes Respiratory/pulmonary: Clear lungs bilaterally, vesicular murmurs present in almost all lung ray, no associated crackles or wheezes. Cardiovascular: Normal heart sounds S1 and S2 with no associated murmurs Abdomen: Tenderness on light palpation in right upper quadrant. Positive Adamson's sign. Well-healed surgical scars in the lower abdomen. Extremities: There is no peripheral edema present at the lower extremities. Peripheral Pulses: 3+ Radial (R). 3+ Radial (L). 3+ Dorsalis pedis (R). 3+ Dorsalis pedis(L) Skin: No rashes or pruritus, there is no sacral edema present at this time. Neurological: Intact cranial nerves with no focal neurologic deficits laboratory and microbiology Laboratory Tests 08/16/25 06:58 Test 08/16/25 06:58 Range/Units Serum Glucose 116 H 74-106 mg/dL Microbiology Date/Time Source Procedure Growth Status 08/11/25 23:19 Blood Blood Culture - Preliminary NO GROWTH AFTER 72 HOURS OF INCUBATION. Resulted Problem List/Assessment/Plan Problem List/Assessment/Plan Sepsis due to Acute cholecystitis Liver cirrhosis Tachycardia, tachypnea, Neutrophilic leukocytosis Liver US: Somewhat indeterminate study with gallstones, wall thickening, and positive sonographic Adamson's sign however no tense gallbladder distention and no significant surrounding inflammatory changes. Cirrhotic appearing liver. Blood culture ordered Cardiac cleared for surgery completed Xarelto washout of at least 5 days completed IV ceftriaxone, metronidazole IV NS bolus and maintenance ordered Cholecystectomy, IOC scheduled for tomorrow Hyperlipidemia Atorvastatin 40 mg p.o. Hypertension Chronic diastolic heart failure with EF 50% Continue enalapril Holding Farxiga, furosemide due to sepsis, soft blood pressure Hypothyroidism TSH 1.66 Continue levothyroxine 25 mcg p.o. Paroxysmal Atrial fibrillation stage IIIA CHADSVASc 2 On rivaroxaban, discontinued for eventual surgery. Lovenox therapeutic dose given EKG: Sinus rhythm. Prolonged DC interval. Borderline intraventricular conduction delay. Low voltage, precordial leads Hypomagnesemia Magnesium supplemented, recheck magnesium levels COPD, without exacerbation History of Coronary artery disease DIET: NPO DVT PROPHYLAXIS: Sequential compression device GI PROPHYLAXIS: Protonix CODE STATUS: Goals of care discussed with patient at bedside for more than 15 minutes. Full code Plan discussed with patient This medical document was created using an electronic medical record system with [employer] direct computerized dictation system. Although this document has been carefully reviewed, there may still be some phonetic and typographical errors. These areas are purely typographical due to imperfections of the software programs, and do not reflect any compromise in the patient's medical care. Plan discussed with patient and Dr. Mckeon Plan discussed with: Patient, Other (Nurses) My Orders My Orders Orders - HARVEY BERNSTEIN Procedure Category Date Status Time Urinalysis LAB 08/16/25 Logged 10:24 Dietary Evaluation Review Comments: 1) Advance to Hepatic 80g Pro diet when medically feasible 2) Encourage optimal PO intake 3) Follow-up with cardiology and gastroenterology/hepatology 4) Continue to monitor I&O, labs, and skin integrit Expected Outcomes/Goals: 1) appetite and labs to improve 2) f/u in 3-5 days Date of Service: Aug 16, 2025 Billing Provider: KESHA MCKEON MD Common Visit Codes: [id number] INP/OBS CARE(HIGH) HARVEY BERNSTEIN RESIDENT Aug 16, 2025 15:34 KESHA MCKEON MD Aug 23, 2025 21:13
[2025-08-17] VITALS (7 sets, daily range): BP systolic 111–123; BP diastolic 63–79; PULSE 52–83; RESP 16–19; TEMP 97.4–97.7; O2SAT 88–100
[2025-08-17 02:24] LABS: Urine Protein, UAD Negative (Negative)
[2025-08-17 06:23] LABS: Hematocrit 42.1 % (41.0-53.0); Hemoglobin 14.6 g/dL (13.5-17.5); Mean Corpuscular Hemoglobin 33.6 pg (28.0-32.0); Mean Corpuscular Volume 97.4 fL (80.0-100.0); Nucleated Red Blood Cells % 0.1 %
[2025-08-17 06:43] LABS: Albumin 3.8 g/dL (3.2-4.8); Anion Gap 9 (5-15); Calcium 8.8 mg/dL (8.7-10.4); Carbon Dioxide 28 mmol/L (20-31); Chloride 100 mmol/L (98-107); Potassium 3.7 mmol/L (3.5-5.1); Sodium 137 mmol/L (136-145); Total Protein 7.0 g/dL (5.7-8.2)
[2025-08-17 06:47] LABS: Alanine Aminotransferase 80 U/L (7-40); Alkaline Phosphatase 232 U/L (46-116); BUN/Creatinine Ratio 11.4 (10.0-20.0); Bilirubin, Total 1.9 mg/dL (0.2-1.0); Blood Urea Nitrogen < 5 mg/dL (9-23); Glucose 116 mg/dL (74-106)
[2025-08-17 06:48] LABS: Bilirubin, Direct 1.2 mg/dL (<0.3)
--- NOTE | 2025-08-17 10:03 | DVHPNRES ---
Progress Note Date Seen: Aug 17, 2025 Resident Creating Document: HARVEY BERNSTEIN RESIDENT Medical Necessity Reason Pt with a Central, PICC or Fol: No Subjective Review of Systems Brief history on admission: This is a 59-year-old male with past medical history of liver cirrhosis, hypertension, COPD, CAD s/p angiography no stents placed, cholecystitis, presented to the ER with chief complain of abdominal pain. The pain is located in right upper quadrant, started to day, described as sharp, intermittent, 9/10, aggravates with inspiration. He also complained of nausea and lightheadedness. He denies vomiting, fever, chills. Patient uses 4 L oxygen at home as needed. Previous hospitalization: July 12, 2025 for acute cholecystitis, patient chose conservative management instead of surgery during that admission. PMHx: liver cirrhosis, hypertension, COPD, CAD s/p angiography, cholecystitis, diverticulitis PSHx: 4 hernia repairs Social history: Quit smoking 3 years ago, 10 pack per year. Denies alcohol, drug use. Lives in house with family, full code, next to kin is . Home medication: Enalapril, atorvastatin, Farxiga, furosemide, levothyroxine, rivaroxaban, pantoprazole Allergic history: Penicillin, shellfish ROS: Constitutional: Denies weight loss, fever and chills. HEENT: Denies changes in vision and hearing. Respiratory: Denies shortness of breath and cough Cardiovascular: Denies chest discomfort or palpitations GI: RUQ Abdominal pain, nausea, lightheadedness : Denies dysuria and urinary frequency. Musculoskeletal: Denies myalgias and joint pain Skin: Denies rash and pruritus. Neurological: Denies dizziness, headache, vision or hearing problems 08/16/25: Patient was seen at bedside today. Patient is complaining of right upper quadrant abdominal pain. Patient was awaiting Xarelto washout for 5 days before cholecystectomy. Today, Liver panel shows T bilirubin, AST, ALT, ALP trending up. Scheduled for cholecystectomy and IOC tomorrow. 08/17/2025: The patient was examined at bedside today. No new complaints. Scheduled for cholecystectomy, IOC today. Objective vital signs Vital Sign Date Time Temp Pulse Resp B/P (MAP) Pulse Ox O2 Delivery O2 Flow Rate FiO2 08/17/25 05:00 97.4 59 18 112/74 (87) 92 97.4 08/16/25 20:00 Nasal Cannula* 3 32 Total Intake and Output 08/16/25 08/16/25 08/17/25 15:00 23:00 07:00 Intake Total 1000 ml 100 ml Balance 1000 ml 100 ml medications Current Medications Medications Dose Ordered Sig/Sergio Route Start Time Stop Time Status Last Admin Dose Admin Ondansetron HCl 4 mg Q4HP PRN IV 08/11/25 22:15 08/15/25 08:54 4 MG Pantoprazole Sodium 40 mg DAILY IV 08/12/25 10:00 08/16/25 10:28 40 MG Atorvastatin Calcium 20 mg HS PO 08/12/25 22:00 08/16/25 21:04 20 MG Levothyroxine Sodium 25 mcg QAM@0600 PO 08/12/25 06:00 08/17/25 06:00 25 MCG Zolpidem Tartrate 10 mg HSPRN PRN PO 08/11/25 23:15 08/15/25 23:19 10 MG Acetaminophen 650 mg Q6HP PO 08/12/25 06:00 Cancel Hydromorphone HCl 0.25 mg Q4HPRN PRN IV 08/12/25 05:15 08/16/25 23:23 0.25 MG Enoxaparin Sodium 90 mg Q12HR SC 08/12/25 22:00 08/15/25 10:20 90 MG Piperacillin Sod/ Tazobactam Sod 100 ml @ 25 mls/hr Q8HR IV 08/13/25 14:00 08/17/25 06:00 25 MLS/HR Diphenhydramine HCl 25 mg Q6HP PRN IV 08/13/25 11:45 Amiodarone HCl 200 mg Q12HR PO 08/13/25 22:00 08/16/25 21:04 200 MG Docusate Sodium 100 mg BID PO 08/14/25 22:00 08/16/25 21:04 100 MG Lactulose 30 ml DAILYPRN PRN PO 08/14/25 18:00 Examination General: Patient alert and oriented in person, place and time. Patient following commands. HEENT: Normocephalic, atraumatic, moist mucous membranes Respiratory/pulmonary: Clear lungs bilaterally, vesicular murmurs present in almost all lung ray, no associated crackles or wheezes. Cardiovascular: Normal heart sounds S1 and S2 with no associated murmurs Abdomen: Tenderness on palpation in right upper quadrant. Positive Adamson's sign. Well-healed surgical scars in the lower abdomen. Extremities: There is no peripheral edema present at the lower extremities. Peripheral Pulses: 3+ Radial (R). 3+ Radial (L). 3+ Dorsalis pedis (R). 3+ Dorsalis pedis(L) Skin: No rashes or pruritus, there is no sacral edema present at this time. Neurological: Intact cranial nerves with no focal neurologic deficits laboratory and microbiology Laboratory Tests 08/17/25 05:50 Test 08/17/25 05:50 Range/Units Serum Glucose 116 H 74-106 mg/dL Microbiology Date/Time Source Procedure Growth Status 08/11/25 23:19 Blood Blood Culture - Final NO GROWTH AFTER 5 DAYS OF INCUBATION. Complete Problem List/Assessment/Plan Problem List/Assessment/Plan Sepsis due to Acute cholecystitis Transaminitis Liver cirrhosis Tachycardia, tachypnea, Neutrophilic leukocytosis Liver US: Somewhat indeterminate study with gallstones, wall thickening, and positive sonographic Adamson's sign however no tense gallbladder distention and no significant surrounding inflammatory changes. Cirrhotic appearing liver. Blood culture ordered Cardiac cleared for surgery completed Xarelto washout of at least 5 days completed IV Zosyn IV NS bolus and maintenance ordered Surgery on board. Cholecystectomy, IOC today, on bedside procedure risks, benefits and outcomes explained. Hyperlipidemia Atorvastatin 40 mg p.o. Hypertension Chronic diastolic heart failure with EF 50% Continue enalapril Holding Farxiga, furosemide due to sepsis, soft blood pressure Hypothyroidism TSH 1.66 Continue levothyroxine 25 mcg p.o. Paroxysmal Atrial fibrillation stage IIIA CHADSVASc 2 On rivaroxaban, discontinued for eventual surgery. Amiodarone, Lovenox therapeutic dose given EKG: Sinus rhythm. Prolonged OR interval. Borderline intraventricular conduction delay. Low voltage, precordial leads Hypomagnesemia Magnesium supplemented, recheck magnesium levels COPD, without exacerbation History of Coronary artery disease Insomnia Zolpidem 10 mg p.r.n. HS DIET: NPO DVT PROPHYLAXIS: Sequential compression device GI PROPHYLAXIS: Protonix CODE STATUS: Goals of care discussed with patient at bedside for more than 16 minutes. Full code Plan discussed with patient This medical document was created using an electronic medical record system with M*M flurency direct computerized dictation system. Although this document has been carefully reviewed, there may still be some phonetic and typographical errors. These areas are purely typographical due to imperfections of the software programs, and do not reflect any compromise in the patient's medical care. Plan discussed with patient and Dr. Mckeon Plan discussed with: Patient, Other (Versus) My Orders My Orders Orders - HARVEY BERNSTEIN Procedure Category Date Status Time Sequential ZURDO 08/16/25 In Process Compression Device 15:31 Dietary Evaluation Review Comments: 1) Advance to Hepatic 80g Pro diet when medically feasible 2) Encourage optimal PO intake 3) Follow-up with cardiology and gastroenterology/hepatology 4) Continue to monitor I&O, labs, and skin integrit Expected Outcomes/Goals: 1) appetite and labs to improve 2) f/u in 3-5 days Date of Service: Aug 17, 2025 Billing Provider: KESHA MCKEON MD Common Visit Codes: [id number] INP/OBS CARE(HIGH) HARVEY BERNSTEIN RESIDENT Aug 17, 2025 10:03 KESHA MCKEON MD Aug 23, 2025 21:13
--- NOTE | 2025-08-17 10:07 | DVHPN2 ---
Progress Note - Surgical Date Seen: Aug 17, 2025 Post op day Post op day: 0 Subjective Patient reports: Feels better (Patient feeling better today no abdominal pain complaints) Review of Systems: Deferred Objective Vital signs Vital Sign Date Time Temp Pulse Resp B/P (MAP) Pulse Ox O2 Delivery O2 Flow Rate FiO2 08/17/25 05:00 97.4 59 18 112/74 (87) 92 97.4 08/16/25 20:00 Nasal Cannula* 3 32 Total Intake and Output 08/16/25 08/16/25 08/17/25 15:00 23:00 07:00 Intake Total 1000 ml 100 ml Balance 1000 ml 100 ml Medications Current Medications Medications Dose Ordered Sig/Sergio Route Start Time Stop Time Status Last Admin Dose Admin Ondansetron HCl 4 mg Q4HP PRN IV 08/11/25 22:15 08/15/25 08:54 4 MG Pantoprazole Sodium 40 mg DAILY IV 08/12/25 10:00 08/16/25 10:28 40 MG Atorvastatin Calcium 20 mg HS PO 08/12/25 22:00 08/16/25 21:04 20 MG Levothyroxine Sodium 25 mcg QAM@0600 PO 08/12/25 06:00 08/17/25 06:00 25 MCG Zolpidem Tartrate 10 mg HSPRN PRN PO 08/11/25 23:15 08/15/25 23:19 10 MG Acetaminophen 650 mg Q6HP PO 08/12/25 06:00 Cancel Hydromorphone HCl 0.25 mg Q4HPRN PRN IV 08/12/25 05:15 08/16/25 23:23 0.25 MG Enoxaparin Sodium 90 mg Q12HR SC 08/12/25 22:00 08/15/25 10:20 90 MG Piperacillin Sod/ Tazobactam Sod 100 ml @ 25 mls/hr Q8HR IV 08/13/25 14:00 08/17/25 06:00 25 MLS/HR Diphenhydramine HCl 25 mg Q6HP PRN IV 08/13/25 11:45 Amiodarone HCl 200 mg Q12HR PO 08/13/25 22:00 08/16/25 21:04 200 MG Docusate Sodium 100 mg BID PO 08/14/25 22:00 08/16/25 21:04 100 MG Lactulose 30 ml DAILYPRN PRN PO 08/14/25 18:00 Laboratory Laboratory Tests 08/17/25 05:50 Test 08/17/25 05:50 Range/Units Serum Glucose 116 H 74-106 mg/dL Microbiology Date/Time Source Procedure Growth Status 08/11/25 23:19 Blood Blood Culture - Final NO GROWTH AFTER 5 DAYS OF INCUBATION. Complete Examination: GENERAL:Normal, HEENT:Normal (Scleral icterus), ABDOMEN:Normal (Nondistended, previous surgical scars healed, soft, depressible, right upper quadrant mild tenderness, no rebound, no guarding) Labs and/or images reviewed: Labs reviewed by me (No leukocytosis, total bilirubin level downtrending 1.9 from 4.9, direct bilirubin downtrending 1.2 from 3.6) Problem List/Assessment/Plan Assessment and Plan Mr. Rubio is a 59-year-old male who presents with the acute cholecystitis. Ultrasound shows multiple stones in the gallbladder lumen and physical exam remarkable for tenderness in the right upper quadrant. Patient will benefit from laparoscopic cholecystectomy although given his past medical history he would need prior cardiac clearance and he will also need Xarelto washout of at least 5 days. Interval: No complaints this morning, we will proceed with laparoscopic cholecystectomy, possible open and possible intraoperative cholangiogram 1. Prior to surgery patient will need Xarelto washout for 5 days (last taken on 08/10), and also cardiac clearance 2. On-call to OR tomorrow for laparoscopic cholecystectomy, possible open, and possible intra op cholangiogram 3. NPO 4. A.m. labs ordered: CBC, CMP, direct bilirubin level My Orders My Orders Orders - DALIA SARMIENTO MD Procedure Category Date Status Time Npo After Midnight ZURDO 08/16/25 In Process 11:03 Obtain Consent For: ORDERS 08/16/25 Transmitted 12:36 Obtain Consent For ZURDO 08/16/25 In Process Anesthesia 12:36 Plan discussed with Plan discussed with: Patient Visit Coding Surgery Date of Service if different f: Aug 17, 2025 Billing Provider: DALIA SARMIENTO MD Surgery Visit Codes: [id number] INP/OBS CARE(HIGH) DALIA SARMIENTO MD Aug 17, 2025 10:07
[2025-08-17] MEDS ORDERED: KETOROLAC TROMETH 30 MG/ML 1ML VIAL ONE (11:03)
[2025-08-17] MEDS ORDERED: SUGAMMADEX 200mg/2ml Vial (100MG/ML) IV ONE (11:03)
[2025-08-17] MEDS ORDERED: ROCURONIUM 10MG/ML 10ML VIAL IV ONE (11:03)
[2025-08-17] MEDS ORDERED: ONDANSETRON HCL 4 MG/2 ML VIAL ONE (11:03)
[2025-08-17] MEDS ORDERED: fentaNYL CITRATE 100 MCG/2 ML VL ONE (11:03)
[2025-08-17] MEDS ORDERED: PROPOFOL 10 MG/ML 20 ML IV ONE (11:03)
[2025-08-17] MEDS ORDERED: GLYCOPYRROLATE 0.2 MG/ML 1ML VIAL ONE (11:03)
[2025-08-17] MEDS ORDERED: LIDOCAINE 2% (LOCAL ANESTH.) PF 5ml SDV ONE (11:03)
[2025-08-17] MEDS ORDERED: IOHEXOL 300 MG/ML 100ML BOTTLE IJ ONE (11:48)
[2025-08-17] MEDS: ACETAMINOPHEN IV 1000 MG/100ML (10MG/ML) IV ONE (11:48)
[2025-08-17] MEDS: CELECOXIB 100 MG CAP PO ONE (11:49)
[2025-08-17] MEDS: GABAPENTIN 300 MG CAP PO ONE (11:49)
[2025-08-17] MEDS ORDERED: LIDOCAINE 2%HCL (LOCAL ANESTH.) INJ 10ml MDV ONE (11:51)
[2025-08-17] MEDS ORDERED: MIDAZOLAM HCL 2MG/2ML 2ml VIAL (1mg/ml) ONE (11:54)
[2025-08-17] MEDS ORDERED: LIDOCAINE 1% INJ PF 5ML AMP ONE ×2 (13:38→14:17)
[2025-08-17] MEDS: BUPIVACAINE 0.25% INJ 50ML VIAL ONE (15:46)
[2025-08-17] MEDS ORDERED: HYDROmorphone HCL 2 MG/ML VL/or syr ONE (16:24)
[2025-08-17] MEDS ORDERED: ONDANSETRON HCL 4 MG/2 ML VIAL IV PRN (16:30)
[2025-08-17] MEDS ORDERED: HYDROmorphone HCL 2 MG/ML VL/or syr IV PRN ×2 (16:30)
--- NOTE | 2025-08-17 16:42 | DVHOP2 ---
Operative Report - 2 Report Details Date: 08/17/25 Preop Diagnosis: Acute cholecystitis Postop Diagnosis: Acute gangrenous and perforated cholecystitis Surgeon: Karthikeyan Michel MD Anesthesiologist: MERLE Easley Dr., Dr. Anesthesia: General Drains: 19 Sinhala round channel drain placed under the liver and exiting through the right flank port site Consent: The patient was informed of the risks and benefits of the procedure. These include but are not limited to complications of anesthesia, postoperative infection, incomplete relief of symptoms, recurrence of symptoms, damage to blood vessels, nerves and tendons, deep venous thrombosis, pulmonary embolism and possible need for repeat surgery in the future. Complications: None Estimated Blood Loss: 75 mL Findings: Gangrenous and perforated gallbladder with surrounding abscess pocket. Omental adhesions to liver and gallbladder. Top half of the gallbladder was already off of the liver and firmly adhered to o mentum. Macro nodular Cirrhotic liver Chronic inflammatory changes between the gallbladder liver and surrounding tissues, very thick and dense adhesions. Thin omental adhesions to anterior abdominal wall. Indications for Surgery: Cholecystitis Name of Procedure Performed Laparoscopic cholecystectomy Procedure Details Procedure Details: Upon arrival to the operating room the patient was transferred to the operating table and placed in the supine position with arms extended. General endotracheal anesthesia was induced. Time-out was observed. Patient was pre pped and draped in the standard sterile surgical fashion with chlorhexidine. I then identified armstrong's point and I made a 5 mm incision. I then proceeded to gained entry into the peritoneal cavity with Veress needle technique at armstrong's point. Once in the cavity, it was insufflated to 15 mmHg with toleration. I then placed the 1st trocar utilizing Optiview at armstrong's point. I then surveyed the entry site, no injuries. I then surveyed the peritoneal cavity and noted thin omental adhesions to the anterior abdominal wall, 1 adhesion in the supraumbilical area and 1 adhesion anterior to the liver. I then proceeded to place a 12 mm port at the right of midline position 2 cm above the umbilicus, under direct vision. I then utilized the 12 mm port to enter with a 10 mm 30 degree camera. I then lysed the omental adhesion that was anterior to the liver, using cautery. Patient was then placed in the reverse Trendelenburg [id number] position. I then placed 3 additional working ports under direct vision, 1 in the epigastric area, another at the right midclavicular subcostal area, and right flank area; all ports were 5 mm. I then directed my attention to the liver, liver had macronodular cirrhosis and thick omental adhesions to its edge. Utilizing blunt dissection and cautery I was able to free the edge of the liver. Pus immediately started emanating, and it was suctioned. Some of the pus was sent for culture. I then was able to push the omentum off of the liver, slowly, using blunt dissection and cautery. At this point I was able to see the gallbladder fossa top half, bare. I could not see the gallbladder. Approximally the top half of the gallbladder was completely off of the liver bed and firmly adhesed to the omentum that was immediately laying below the liver. I then was able to free the gallbladder off of the omentum using blunt dissection and cautery. The gallbladder was gangrenous with a large gaping hole and its back wall with bile and pus emanating from it. Small stones identified in the lumen of the gallbladder. Lumen of the gallbladder was suctioned. I then slowly and carefully started dissecting the gallbladder off of the liver, in a dome down fashion, since there were too many adhesions around where the leanne is at. This dissection was extremely cumbersome given the severe thick adhesions. I also had to use the LigaSure device during this dissection. While doing this in the medial aspect I cut through the cystic artery, high on the medial wall site. Cystic artery was promptly controlled with 3 clips proximally. At this point I still hadn't visualize the cystic duct. Gallbladder was ripping into pieces as I retracted on it. I was then finally able to see the crease between the gallbladder under belly and the CBD below on the lateral aspect, carefully bluntly dissected the CBD off of the gallbladder under belly. When I finish this move I was able to identify the cystic duct, which was enlarged but not gangrenous. I then proceeded to clip the duct with 3 5 mm clips proximally and 1 distal. I then proceeded to transected duct. The gallbladder was still firmly adhesed to the low liver fossa and leanne area. At this point I decided to transect the gallbladder leaving behind a small piece of the posterior wall, that was firmly adhesed to the leanne. The dissection of the gallbladder, from the liver/omentum and surrounding structures, to be able to identify the duct and artery took over 2-1/2 hours due to the severity and density of the adhesions. I then placed all the pieces of the gallbladder into the Endo-Catch bag and removed it through the 12 mm port site. I then placed a 0 Vicryl stitch utilizing the Abdoulaye-Beatrice device at the 12 mm site. I then directed my attention again to the gallbladder fossa area. I looked at the clips they were all in place. I then copiously irrigated the gallbladder fossa and over the liver until all effluent was clear. The fossa was hemostatic. I then placed a 19 Sinhala round channel drain under the liver and exiting out of the right flank port site. Counts were complete and correct at the end of the procedure. I then proceeded to removed all 5 mm ports under direct vision, no bleeding from the abdominal wall. Peritoneal cavity was allowed to desufflate completely. The 0 Vicryl stitch was closed. All skin sites were closed with 4- 0 Monocryl and Dermabond. 0.25% Marcaine was used as local anesthetic. Patient tolerated the procedure well and was transferred to PACU in stable condition. Specimen: Gallbladder Condition Stable Disposition Still a Patient KARTHIKEYAN SARMIENTO MD Aug 17, 2025 16:42
[2025-08-18] VITALS (7 sets, daily range): BP systolic 96–124; BP diastolic 50–77; PULSE 50–71; RESP 16–20; TEMP 97.6–98.1; O2SAT 90–100
[2025-08-18 06:16] LABS: Hematocrit 40.5 % (41.0-53.0); Hemoglobin 13.6 g/dL (13.5-17.5); Mean Corpuscular Hemoglobin 32.9 pg (28.0-32.0); Mean Corpuscular Volume 97.6 fL (80.0-100.0); Nucleated Red Blood Cells % 0.0 %
[2025-08-18 06:46] LABS: Albumin 3.5 g/dL (3.2-4.8); Anion Gap 9 (5-15); BUN/Creatinine Ratio 16.3 (10.0-20.0); Calcium 8.9 mg/dL (8.7-10.4); Carbon Dioxide 26 mmol/L (20-31); Chloride 99 mmol/L (98-107); Potassium 4.0 mmol/L (3.5-5.1); Total Protein 6.5 g/dL (5.7-8.2)
[2025-08-18 06:52] LABS: Alanine Aminotransferase 65 U/L (7-40); Alkaline Phosphatase 183 U/L (46-116); Bilirubin, Total 1.2 mg/dL (0.2-1.0); Blood Urea Nitrogen 7 mg/dL (9-23); Glucose 116 mg/dL (74-106); Sodium 134 mmol/L (136-145)
[2025-08-18] MEDS ORDERED: HYDROcodone-ACET 5/325MG TAB PO PRN (09:00)
--- NOTE | 2025-08-18 09:31 | DVHPN2 ---
Progress Note - Surgical Date Seen: Aug 18, 2025 Post op day Post op day: 1 Subjective Patient reports: Feels better (Patient states he feels much better, no pain, tolerated liquid diet, no nausea, no vomiting. Patient is afebrile with vital stable) Review of Systems: Deferred Objective Vital signs Vital Sign Date Time Temp Pulse Resp B/P (MAP) Pulse Ox O2 Delivery O2 Flow Rate FiO2 08/18/25 09:14 98.1 58 18 124/68 (86) 92 98.1 08/17/25 20:00 Nasal Cannula* 3 32 Total Intake and Output 08/17/25 08/17/25 08/18/25 14:59 22:59 06:59 Intake Total 400 ml 1200 ml Output Total 70 ml 151 ml Balance 400 ml -70 ml 1049 ml Medications Current Medications Medications Dose Ordered Sig/Sergio Route Start Time Stop Time Status Last Admin Dose Admin Ondansetron HCl 4 mg Q4HP PRN IV 08/11/25 22:15 08/15/25 08:54 4 MG Pantoprazole Sodium 40 mg DAILY IV 08/12/25 10:00 08/16/25 10:28 40 MG Atorvastatin Calcium 20 mg HS PO 08/12/25 22:00 08/17/25 21:08 20 MG Levothyroxine Sodium 25 mcg QAM@0600 PO 08/12/25 06:00 08/18/25 05:53 25 MCG Zolpidem Tartrate 10 mg HSPRN PRN PO 08/11/25 23:15 08/15/25 23:19 10 MG Acetaminophen 650 mg Q6HP PO 08/12/25 06:00 Cancel Hydromorphone HCl 0.25 mg Q4HPRN PRN IV 08/12/25 05:15 08/18/25 06:02 0.25 MG Enoxaparin Sodium 90 mg Q12HR SC 08/12/25 22:00 08/17/25 21:09 90 MG Piperacillin Sod/ Tazobactam Sod 100 ml @ 25 mls/hr Q8HR IV 08/13/25 14:00 08/18/25 05:53 25 MLS/HR Diphenhydramine HCl 25 mg Q6HP PRN IV 08/13/25 11:45 Amiodarone HCl 200 mg Q12HR PO 08/13/25 22:00 08/17/25 21:08 200 MG Docusate Sodium 100 mg BID PO 08/14/25 22:00 08/17/25 21:08 100 MG Lactulose 30 ml DAILYPRN PRN PO 08/14/25 18:00 Laboratory Laboratory Tests 08/18/25 05:48 Test 08/18/25 05:48 Range/Units Serum Glucose 116 H 74-106 mg/dL Microbiology Date/Time Source Procedure Growth Status 08/11/25 23:19 Blood Blood Culture - Final NO GROWTH AFTER 5 DAYS OF INCUBATION. Complete Examination: GENERAL:Normal, HEENT:Normal (No icterus), ABDOMEN:Normal (Nondistended, incision sites with skin glue in place and without surrounding signs of infection, soft, depressible, appropriate tenderness) Labs and/or images reviewed: Labs reviewed by me (No leukocytosis 8.7 from 4.8, hemoglobin stable, LFTs downtrending total bilirubin 1.2 from 1.9 and direct bilirubin 0.8 from 1.2) Problem List/Assessment/Plan Assessment and Plan Mr. Rubio is a 59-year-old male who presents with the acute cholecystitis. Ultrasound shows multiple stones in the gallbladder lumen and physical exam remarkable for tenderness in the right upper quadrant. Patient will benefit from laparoscopic cholecystectomy although given his past medical history he would need prior cardiac clearance and he will also need Xarelto washout of at least 5 days. Interval: Patient is postop day 1 from laparoscopic cholecystectomy, due to a gangrenous and perforated gallbladder. Patient is feeling good this morning, no abdominal pain complaints, vital stable and afebrile. LFTs downtrending, total bilirubin 1.2 from 1.9 and direct bilirubin 0.8 from 1.2; stone likely passed into the intestine. Patient will need 48 hours of IV antibiotics prior to discharge and upon discharge we will need 5 more days of p.o. antibiotics, for a total of 7 after the surgery. 1. Continue with Zosyn IV for 48 hours after surgery, upon discharge patient will need 5 more days of p.o. antibiotics for a total 7. 2. Clear liquid diet and advance as tolerated 3. Out of bed and ambulate 4. A.m. labs ordered: CBC, CMP, direct bilirubin level 5. Strip drain and record output b.i.d. and prn 7. Pain medication regimen adjusted: Tylenol 650 mg p.o. every 6 hours, ibuprofen 600 mg every 8 hours, Norlina 5 and 10 p.o. PRN moderate and severe pain every 4 hours My Orders My Orders Orders - DALIA SARMIENTO MD Procedure Category Date Status Time Gram Stain CLIFFORD 08/17/25 In Process 12:37 Routine Bacterial CLIFFORD 08/17/25 In Process Culture 12:37 Anaerobic Culture CLIFFORD 08/17/25 In Process 12:37 Communication Order ORDERS 08/17/25 Transmitted 16:15 Clear Liq Diet DIET 08/17/25 Transmitted Dinner Complete Blood Count LAB 08/19/25 Verified 04:00 Comprehensive LAB 08/19/25 Verified Metabolic Panel 04:00 Bilirubin, Direct LAB 08/19/25 Verified 04:00 Hydrocodone-Acet PHA 08/18/25 Verified 5/325mg Tab (Norlina 09:00 Hydrocodone-Acet PHA 08/18/25 Verified 10/325mg Tab (Norlina 09:00 Acetaminophen Tablet PHA 08/18/25 Verified (Tylenol Tablet) 12:00 Ibuprofen Tablet PHA 08/18/25 Verified (Motrin Tablet) 14:00 Polyethylene Glycol PHA 08/18/25 Verified 17g Powder (Miralax 10:00 Plan discussed with Plan discussed with: Patient Visit Coding Surgery Date of Service if different f: Aug 18, 2025 Billing Provider: DALIA SARMIENTO MD Surgery Visit Codes: [id number] INP/OBS CARE(HIGH) DALIA SARMIENTO MD Aug 18, 2025 09:31
[2025-08-18] MEDS: POLYETHYLENE GLYCOL 17 GM PWDR PO SCH (11:39)
[2025-08-18] MEDS: HYDROcodone-ACET 10/325MG TAB PO PRN (11:39)
[2025-08-18] MEDS: ACETAMINOPHEN 325 MG TAB PO SCH (12:44)
[2025-08-18] MEDS: IBUPROFEN 600 MG TAB PO SCH (14:22)
--- NOTE | 2025-08-18 16:36 | DVHPNRES ---
Progress Note Date Seen: Aug 18, 2025 Resident Creating Document: HARVEY BERNSTEIN RESIDENT Medical Necessity Reason Pt with a Central, PICC or Fol: No Subjective Review of Systems Brief history on admission: This is a 59-year-old male with past medical history of liver cirrhosis, hypertension, COPD, CAD s/p angiography no stents placed, cholecystitis, presented to the ER with chief complain of abdominal pain. The pain is located in right upper quadrant, started to day, described as sharp, intermittent, 9/10, aggravates with inspiration. He also complained of nausea and lightheadedness. He denies vomiting, fever, chills. Patient uses 4 L oxygen at home as needed. Previous hospitalization: July 12, 2025 for acute cholecystitis, patient chose conservative management instead of surgery during that admission. PMHx: liver cirrhosis, hypertension, COPD, CAD s/p angiography, cholecystitis, diverticulitis PSHx: 4 hernia repairs Social history: Quit smoking 3 years ago, 10 pack per year. Denies alcohol, drug use. Lives in house with family, full code, next to kin is . Home medication: Enalapril, atorvastatin, Farxiga, furosemide, levothyroxine, rivaroxaban, pantoprazole Allergic history: Penicillin, shellfish ROS: Constitutional: Denies weight loss, fever and chills. HEENT: Denies changes in vision and hearing. Respiratory: Denies shortness of breath and cough Cardiovascular: Denies chest discomfort or palpitations GI: RUQ Abdominal pain, nausea, lightheadedness : Denies dysuria and urinary frequency. Musculoskeletal: Denies myalgias and joint pain Skin: Denies rash and pruritus. Neurological: Denies dizziness, headache, vision or hearing problems 08/16/25: Patient is complaining of right upper quadrant abdominal pain. Patient was awaiting Xarelto washout for 5 days before cholecystectomy. Today, Liver panel shows T bilirubin, AST, ALT, ALP trending up. Scheduled for cholecystectomy and IOC tomorrow. 08/17/2025: No new complaints. Scheduled for cholecystectomy, IOC today. 08/18/2025: The patient was examined at bedside today. Status post cholecystectomy, SAM drain- postop day 1. Objective vital signs Vital Sign Date Time Temp Pulse Resp B/P (MAP) Pulse Ox O2 Delivery O2 Flow Rate FiO2 08/18/25 12:30 97.9 60 18 121/70 (87) 94 97.9 08/18/25 08:15 Nasal Cannula* 3 32 Total Intake and Output 08/17/25 08/17/25 08/18/25 15:00 23:00 07:00 Intake Total 400 ml 1200 ml Output Total 70 ml 151 ml Balance 400 ml -70 ml 1049 ml medications Current Medications Medications Dose Ordered Sig/Sergio Route Start Time Stop Time Status Last Admin Dose Admin Ondansetron HCl 4 mg Q4HP PRN IV 08/11/25 22:15 08/15/25 08:54 4 MG Pantoprazole Sodium 40 mg DAILY IV 08/12/25 10:00 08/18/25 10:31 40 MG Atorvastatin Calcium 20 mg HS PO 08/12/25 22:00 08/17/25 21:08 20 MG Levothyroxine Sodium 25 mcg QAM@0600 PO 08/12/25 06:00 08/18/25 05:53 25 MCG Zolpidem Tartrate 10 mg HSPRN PRN PO 08/11/25 23:15 08/15/25 23:19 10 MG Acetaminophen 650 mg Q6HP PO 08/12/25 06:00 Cancel Hydromorphone HCl 0.25 mg Q4HPRN PRN IV 08/12/25 05:15 08/18/25 10:32 0.25 MG Enoxaparin Sodium 90 mg Q12HR SC 08/12/25 22:00 08/18/25 10:33 90 MG Piperacillin Sod/ Tazobactam Sod 100 ml @ 25 mls/hr Q8HR IV 08/13/25 14:00 08/18/25 14:22 25 MLS/HR Diphenhydramine HCl 25 mg Q6HP PRN IV 08/13/25 11:45 Amiodarone HCl 200 mg Q12HR PO 08/13/25 22:00 08/18/25 10:30 200 MG Docusate Sodium 100 mg BID PO 08/14/25 22:00 08/18/25 10:30 100 MG Lactulose 30 ml DAILYPRN PRN PO 08/14/25 18:00 Acetaminophen/ Hydrocodone Bitart 1 tab Q4HPRN PRN PO 08/18/25 09:00 Acetaminophen/ Hydrocodone Bitart 1 tab Q4HP PRN PO 08/18/25 09:00 08/18/25 11:39 1 TAB Acetaminophen 650 mg Q6HR PO 08/18/25 12:00 08/18/25 12:44 650 MG Ibuprofen 600 mg Q8HR PO 08/18/25 14:00 08/18/25 14:22 600 MG Polyethylene Glycol 17 gm DAILY PO 08/18/25 10:00 08/18/25 11:39 17 GM Examination General: Patient alert and oriented in person, place and time. Patient following commands. HEENT: Normocephalic, atraumatic, moist mucous membranes Respiratory/pulmonary: Clear lungs bilaterally, vesicular murmurs present in almost all lung ray, no associated crackles or wheezes. Cardiovascular: Normal heart sounds S1 and S2 with no associated murmurs Abdomen: Tenderness on palpation in right upper quadrant. SAM drain in place, draining bloody fluid. Extremities: There is no peripheral edema present at the lower extremities. Peripheral Pulses: 3+ Radial (R). 3+ Radial (L). 3+ Dorsalis pedis (R). 3+ Dorsalis pedis(L) Skin: No rashes or pruritus, there is no sacral edema present at this time. Neurological: Intact cranial nerves with no focal neurologic deficits laboratory and microbiology Laboratory Tests 08/18/25 05:48 Test 08/18/25 05:48 Range/Units Serum Glucose 116 H 74-106 mg/dL Microbiology Date/Time Source Procedure Growth Status 08/17/25 12:33 Abdomen Gram Stain - Final Resulted 08/17/25 12:33 Abdomen Anaerobic Culture - Preliminary Resulted 08/17/25 12:33 Abdomen Aerobic Culture - Preliminary Resulted 08/11/25 23:19 Blood Blood Culture - Final NO GROWTH AFTER 5 DAYS OF INCUBATION. Complete Problem List/Assessment/Plan Problem List/Assessment/Plan Sepsis due to Acute cholecystitis Status post cholecystectomy, SAM drain in place Acute gangrenous, perforated gallbladder Transaminitis Liver cirrhosis Tachycardia, tachypnea, Neutrophilic leukocytosis Liver US: Somewhat indeterminate study with gallstones, wall thickening, and positive sonographic Adamson's sign however no tense gallbladder distention and no significant surrounding inflammatory changes. Cirrhotic appearing liver. Blood culture ordered Cardiac cleared for surgery completed Xarelto washout of at least 5 days completed IV Zosyn IV NS bolus and maintenance ordered Surgery on board. S/p Cholecystectomy, SAM drain in place. CBC, BMP repeated, continue clinical monitoring Hyperlipidemia Atorvastatin 40 mg p.o. Hypertension Chronic diastolic heart failure with EF 50% Continue enalapril Holding Farxiga, furosemide due to sepsis, soft blood pressure Hypothyroidism TSH 1.66 Continue levothyroxine 25 mcg p.o. Paroxysmal Atrial fibrillation stage IIIA CHADSVASc 2 On rivaroxaban, discontinued for eventual surgery. Amiodarone, Lovenox therapeutic dose given EKG: Sinus rhythm. Prolonged [place] interval. Borderline intraventricular conduction delay. Low voltage, precordial leads Hypomagnesemia Magnesium supplemented, recheck magnesium levels COPD, without exacerbation History of Coronary artery disease Insomnia Zolpidem 10 mg p.r.n. HS DIET: NPO DVT PROPHYLAXIS: Sequential compression device GI PROPHYLAXIS: Protonix CODE STATUS: Goals of care discussed with patient at bedside for more than 16 minutes. Full code Plan discussed with patient This medical document was created using an electronic medical record system with [email or web address] computerized dictation system. Although this document has been carefully reviewed, there may still be some phonetic and typographical errors. These areas are purely typographical due to imperfections of the software programs, and do not reflect any compromise in the patient's medical care. Plan discussed with patient and Dr. Mckeon Plan discussed with: Patient, Other (Nurses) My Orders My Orders Orders - HARVEY BERNSTEIN RESIDENT Procedure Category Date Status Time Magnesium LAB 08/19/25 Verified 04:00 Dietary Evaluation Review Comments: 1) Advance to Hepatic 80g Pro diet when medically feasible 2) Encourage optimal PO intake 3) Follow-up with cardiology and gastroenterology/hepatology 4) Continue to monitor I&O, labs, and skin integrit Expected Outcomes/Goals: 1) appetite and labs to improve 2) f/u in 3-5 days Date of Service: Aug 18, 2025 Billing Provider: KESHA MCKEON MD Common Visit Codes: [id number] INP/OBS CARE(HIGH) HARVEY BERNSTEIN Aug 18, 2025 16:36 KESHA MCKEON MD Aug 23, 2025 21:13
[2025-08-19] VITALS (7 sets, daily range): BP systolic 102–135; BP diastolic 50–83; PULSE 52–68; RESP 17–18; TEMP 97–98; O2SAT 90–98
[2025-08-19 06:27] LABS: Hematocrit 36.4 % (41.0-53.0); Hemoglobin 12.3 g/dL (13.5-17.5); Mean Corpuscular Hemoglobin 33.0 pg (28.0-32.0); Mean Corpuscular Volume 97.8 fL (80.0-100.0); Nucleated Red Blood Cells % 0.0 %
[2025-08-19 06:43] LABS: Anion Gap 8 (5-15); BUN/Creatinine Ratio 10.6 (10.0-20.0); Bilirubin, Total 1.1 mg/dL (0.2-1.0); Carbon Dioxide 28 mmol/L (20-31); Chloride 105 mmol/L (98-107); Glucose 86 mg/dL (74-106); Magnesium 1.7 mg/dL (1.6-2.6); Potassium 3.7 mmol/L (3.5-5.1); Sodium 141 mmol/L (136-145)
[2025-08-19 07:03] LABS: Alanine Aminotransferase 44 U/L (7-40); Albumin 3.1 g/dL (3.2-4.8); Alkaline Phosphatase 129 U/L (46-116); Bilirubin, Direct 0.7 mg/dL (<0.3); Blood Urea Nitrogen 5 mg/dL (9-23); Calcium 8.1 mg/dL (8.7-10.4); Total Protein 5.6 g/dL (5.7-8.2)
[2025-08-19] MEDS: MAGNESIUM SULFATE 1GM/100ML 100 ML IV ONE (10:19)
[2025-08-19] MEDS: AMIODARONE HCL 200 MG TAB PO SCH (10:36)
--- NOTE | 2025-08-19 11:11 | DVHPNRES ---
Progress Note Date Seen: Aug 19, 2025 Resident Creating Document: HARVEY BERNSTEIN RESIDENT Medical Necessity Reason Pt with a Central, PICC or Fol: No Subjective Review of Systems Brief history on admission: This is a 59-year-old male with past medical history of liver cirrhosis, hypertension, COPD, CAD s/p angiography no stents placed, cholecystitis, presented to the ER with chief complain of abdominal pain. The pain is located in right upper quadrant, started to day, described as sharp, intermittent, 9/10, aggravates with inspiration. He also complained of nausea and lightheadedness. He denies vomiting, fever, chills. Patient uses 4 L oxygen at home as needed. Previous hospitalization: July 12, 2025 for acute cholecystitis, patient chose conservative management instead of surgery during that admission. PMHx: liver cirrhosis, hypertension, COPD, CAD s/p angiography, cholecystitis, diverticulitis PSHx: 4 hernia repairs Social history: Quit smoking 3 years ago, 10 pack per year. Denies alcohol, drug use. Lives in house with family, full code, next to kin is . Home medication: Enalapril, atorvastatin, Farxiga, furosemide, levothyroxine, rivaroxaban, pantoprazole Allergic history: Penicillin, shellfish ROS: Constitutional: Denies weight loss, fever and chills. HEENT: Denies changes in vision and hearing. Respiratory: Denies shortness of breath and cough Cardiovascular: Denies chest discomfort or palpitations GI: RUQ Abdominal pain, nausea, lightheadedness : Denies dysuria and urinary frequency. Musculoskeletal: Denies myalgias and joint pain Skin: Denies rash and pruritus. Neurological: Denies dizziness, headache, vision or hearing problems 08/16/25: Patient is complaining of right upper quadrant abdominal pain. Patient was awaiting Xarelto washout for 5 days before cholecystectomy. Today, Liver panel shows T bilirubin, AST, ALT, ALP trending up. Scheduled for cholecystectomy and IOC tomorrow. 08/17/2025: No new complaints. Scheduled for cholecystectomy, IOC today. 08/18/2025: Status post cholecystectomy, SAM drain- postop day 1. 08/19/2025: The patient was examined at bedside today. Status post cholecystectomy, SAM drain- postop day 2. Surgery on board, we will continue evaluating and managing. Objective vital signs Vital Sign Date Time Temp Pulse Resp B/P (MAP) Pulse Ox O2 Delivery O2 Flow Rate FiO2 08/19/25 08:51 97.8 65 18 120/83 (95) 92 97.8 08/18/25 20:00 Nasal Cannula* 3 32 Total Intake and Output 08/18/25 08/18/25 08/19/25 15:00 23:00 07:00 Intake Total 100 ml 1750 ml 600 ml Output Total 550 ml 1250 ml Balance -450 ml 1750 ml -650 ml medications Current Medications Medications Dose Ordered Sig/Sergio Route Start Time Stop Time Status Last Admin Dose Admin Ondansetron HCl 4 mg Q4HP PRN IV 08/11/25 22:15 08/15/25 08:54 4 MG Pantoprazole Sodium 40 mg DAILY IV 08/12/25 10:00 08/19/25 10:19 40 MG Atorvastatin Calcium 20 mg HS PO 08/12/25 22:00 08/18/25 23:14 20 MG Levothyroxine Sodium 25 mcg QAM@0600 PO 08/12/25 06:00 08/19/25 06:23 25 MCG Zolpidem Tartrate 10 mg HSPRN PRN PO 08/11/25 23:15 08/18/25 23:14 10 MG Acetaminophen 650 mg Q6HP PO 08/12/25 06:00 Cancel Hydromorphone HCl 0.25 mg Q4HPRN PRN IV 08/12/25 05:15 08/18/25 10:32 0.25 MG Enoxaparin Sodium 90 mg Q12HR SC 08/12/25 22:00 08/18/25 23:13 90 MG Piperacillin Sod/ Tazobactam Sod 100 ml @ 25 mls/hr Q8HR IV 08/13/25 14:00 08/19/25 06:22 25 MLS/HR Diphenhydramine HCl 25 mg Q6HP PRN IV 08/13/25 11:45 Docusate Sodium 100 mg BID PO 08/14/25 22:00 08/18/25 23:15 100 MG Lactulose 30 ml DAILYPRN PRN PO 08/14/25 18:00 Acetaminophen/ Hydrocodone Bitart 1 tab Q4HPRN PRN PO 08/18/25 09:00 Acetaminophen/ Hydrocodone Bitart 1 tab Q4HP PRN PO 08/18/25 09:00 08/18/25 11:39 1 TAB Acetaminophen 650 mg Q6HR PO 08/18/25 12:00 08/19/25 06:23 650 MG Ibuprofen 600 mg Q8HR PO 08/18/25 14:00 08/18/25 23:14 600 MG Polyethylene Glycol 17 gm DAILY PO 08/18/25 10:00 08/18/25 11:39 17 GM Amiodarone HCl 200 mg DAILY PO 08/19/25 10:00 08/19/25 10:36 200 MG Examination General: Patient alert and oriented in person, place and time. Patient following commands. HEENT: Normocephalic, atraumatic, moist mucous membranes Respiratory/pulmonary: Clear lungs bilaterally, vesicular murmurs present in almost all lung ray, no associated crackles or wheezes. Cardiovascular: Normal heart sounds S1 and S2 with no associated murmurs Abdomen: Tenderness on palpation in right upper quadrant. SAM drain in place, draining bloody fluid. Extremities: There is no peripheral edema present at the lower extremities. Peripheral Pulses: 3+ Radial (R). 3+ Radial (L). 3+ Dorsalis pedis (R). 3+ Dorsalis pedis(L) Skin: No rashes or pruritus, there is no sacral edema present at this time. Neurological: Intact cranial nerves with no focal neurologic deficits laboratory and microbiology Laboratory Tests 08/19/25 05:54 Test 08/19/25 05:54 Range/Units Serum Glucose 86 74-106 mg/dL Microbiology Date/Time Source Procedure Growth Status 08/17/25 12:33 Abdomen Gram Stain - Final Resulted 08/17/25 12:33 Abdomen Anaerobic Culture - Preliminary Resulted 08/17/25 12:33 Abdomen Aerobic Culture - Preliminary Resulted 08/11/25 23:19 Blood Blood Culture - Final NO GROWTH AFTER 5 DAYS OF INCUBATION. Complete Problem List/Assessment/Plan Problem List/Assessment/Plan Sepsis due to Acute cholecystitis Status post cholecystectomy, SAM drain in place Acute gangrenous, perforated gallbladder Transaminitis Liver cirrhosis Tachycardia, tachypnea, Neutrophilic leukocytosis Liver US: Somewhat indeterminate study with gallstones, wall thickening, and positive sonographic Adamson's sign however no tense gallbladder distention and no significant surrounding inflammatory changes. Cirrhotic appearing liver. Blood culture ordered Cardiac cleared for surgery completed Xarelto washout of at least 5 days completed IV Zosyn IV NS bolus and maintenance ordered Surgery on board. S/p Cholecystectomy, SAM drain in place. CMP repeated, continue clinical monitoring Hyperlipidemia Atorvastatin 40 mg p.o. Hypertension Chronic diastolic heart failure with EF 50% Continue enalapril Holding Farxiga, furosemide due to sepsis, soft blood pressure Hypothyroidism TSH 1.66 Continue levothyroxine 25 mcg p.o. Paroxysmal Atrial fibrillation stage IIIA CHADSVASc 2 On rivaroxaban, discontinued for eventual surgery. Amiodarone, Lovenox therapeutic dose given EKG: Sinus rhythm. Prolonged [place] interval. Borderline intraventricular conduction delay. Low voltage, precordial leads Hypomagnesemia Magnesium supplemented, recheck magnesium levels COPD, without exacerbation History of Coronary artery disease Insomnia Zolpidem 10 mg p.r.n. HS DIET: NPO DVT PROPHYLAXIS: Sequential compression device GI PROPHYLAXIS: Protonix CODE STATUS: Goals of care discussed with patient at bedside for more than 16 minutes. Full code Plan discussed with patient This medical document was created using an electronic medical record system with [employer] dictation system. Although this document has been carefully reviewed, there may still be some phonetic and typographical errors. These areas are purely typographical due to imperfections of the software programs, and do not reflect any compromise in the patient's medical care. Plan discussed with patient and Dr. Mckeon Plan discussed with: Patient, Other (Nurses) My Orders My Orders Orders - HARVEY BERNSTEIN Procedure Category Date Status Time Amiodarone Tablet PHA 08/19/25 In Process (Cordarone Tablet) 10:00 Comprehensive LAB 08/20/25 Verified Metabolic Panel 04:00 Dietary Evaluation Review Comments: 1) Advance to Hepatic 80g Pro diet when medically feasible 2) Encourage optimal PO intake 3) Follow-up with cardiology and gastroenterology/hepatology 4) Continue to monitor I&O, labs, and skin integrit Expected Outcomes/Goals: 1) appetite and labs to improve 2) f/u in 3-5 days Date of Service: Aug 19, 2025 Billing Provider: KESHA MCKEON MD Common Visit Codes: [id number] INP/OBS CARE(MOD) HARVEY BERNSTEIN RESIDENT Aug 19, 2025 11:11 KESHA MCKEON MD Aug 23, 2025 21:14
--- NOTE | 2025-08-19 13:12 | DVHPN2 ---
Progress Note - Surgical Date Seen: Aug 19, 2025 Post op day Post op day: 2 Subjective Patient reports: Feels better (Patient feeling good, tolerating liquid diet, wants to eat more. Had a bowel) Review of Systems: Deferred (Movement today.) Objective Vital signs Vital Sign Date Time Temp Pulse Resp B/P (MAP) Pulse Ox O2 Delivery O2 Flow Rate FiO2 08/19/25 08:51 97.8 65 18 120/83 (95) 92 97.8 08/19/25 08:10 Nasal Cannula* 3 32 Total Intake and Output 08/18/25 08/18/25 08/19/25 15:00 23:00 07:00 Intake Total 100 ml 1750 ml 600 ml Output Total 550 ml 1250 ml Balance -450 ml 1750 ml -650 ml Medications Current Medications Medications Dose Ordered Sig/Sergio Route Start Time Stop Time Status Last Admin Dose Admin Ondansetron HCl 4 mg Q4HP PRN IV 08/11/25 22:15 08/15/25 08:54 4 MG Pantoprazole Sodium 40 mg DAILY IV 08/12/25 10:00 08/19/25 10:19 40 MG Atorvastatin Calcium 20 mg HS PO 08/12/25 22:00 08/18/25 23:14 20 MG Levothyroxine Sodium 25 mcg QAM@0600 PO 08/12/25 06:00 08/19/25 06:23 25 MCG Zolpidem Tartrate 10 mg HSPRN PRN PO 08/11/25 23:15 08/18/25 23:14 10 MG Acetaminophen 650 mg Q6HP PO 08/12/25 06:00 Cancel Hydromorphone HCl 0.25 mg Q4HPRN PRN IV 08/12/25 05:15 08/18/25 10:32 0.25 MG Enoxaparin Sodium 90 mg Q12HR SC 08/12/25 22:00 08/18/25 23:13 90 MG Piperacillin Sod/ Tazobactam Sod 100 ml @ 25 mls/hr Q8HR IV 08/13/25 14:00 08/19/25 06:22 25 MLS/HR Diphenhydramine HCl 25 mg Q6HP PRN IV 08/13/25 11:45 Docusate Sodium 100 mg BID PO 08/14/25 22:00 08/18/25 23:15 100 MG Lactulose 30 ml DAILYPRN PRN PO 08/14/25 18:00 Acetaminophen/ Hydrocodone Bitart 1 tab Q4HPRN PRN PO 08/18/25 09:00 Acetaminophen/ Hydrocodone Bitart 1 tab Q4HP PRN PO 08/18/25 09:00 08/18/25 11:39 1 TAB Acetaminophen 650 mg Q6HR PO 08/18/25 12:00 08/19/25 11:48 650 MG Ibuprofen 600 mg Q8HR PO 08/18/25 14:00 08/18/25 23:14 600 MG Polyethylene Glycol 17 gm DAILY PO 08/18/25 10:00 08/18/25 11:39 17 GM Amiodarone HCl 200 mg DAILY PO 08/19/25 10:00 08/19/25 10:36 200 MG Laboratory Laboratory Tests 08/19/25 05:54 Test 08/19/25 05:54 Range/Units Serum Glucose 86 74-106 mg/dL Microbiology Date/Time Source Procedure Growth Status 08/17/25 12:33 Abdomen Gram Stain - Final Resulted 08/17/25 12:33 Abdomen Anaerobic Culture - Preliminary Resulted 08/17/25 12:33 Abdomen Aerobic Culture - Preliminary Resulted 08/11/25 23:19 Blood Blood Culture - Final NO GROWTH AFTER 5 DAYS OF INCUBATION. Complete Examination: GENERAL:Normal, HEENT:Normal (No icterus), ABDOMEN:Normal (Nondistended, incision sites with overlying skin glue, no signs of infection around the incision sites, soft, depressible, appropriate right upper quadrant tenderness, drain with minimal serosanguineous output.) Labs and/or images reviewed: Labs reviewed by me (No leukocytosis, liver function tests continue to downtrend, total bilirubin and direct bilirubin level are within normal limits) Problem List/Assessment/Plan Assessment and Plan Mr. Rubio is a 59-year-old male who presents with the acute cholecystitis. Ultrasound shows multiple stones in the gallbladder lumen and physical exam remarkable for tenderness in the right upper quadrant. Patient will benefit from laparoscopic cholecystectomy although given his past medical history he would need prior cardiac clearance and he will also need Xarelto washout of at least 5 days. Interval: Patient is postop day 2 from laparoscopic cholecystectomy, due to a gangrenous and perforated gallbladder. Patient continues to feel well, we will advance diet to low-fat diet. One more day of IV antibiotics. 1. Continue with Zosyn IV for 48 hours after surgery, upon discharge patient will need 5 more days of p.o. antibiotics for a total 7. 2. Low-fat diet 3. Out of bed and ambulate 4. A.m. labs ordered: CBC, CMP, direct bilirubin level 5. Strip drain and record output b.i.d. and prn 7. Pain medication regimen adjusted: Tylenol 650 mg p.o. every 6 hours, ibuprofen 600 mg every 8 hours, [place] 5 and 10 p.o. PRN moderate and severe pain every 4 hours Plan discussed with Plan discussed with: Patient Visit Coding Surgery Date of Service if different f: Aug 19, 2025 Billing Provider: DALIA SARMIENTO MD Surgery Visit Codes: [id number] INP/OBS CARE(HIGH) DALIA SARMIENTO MD Aug 19, 2025 13:12
[2025-08-20 01:00] VITALS: BP 113/67; PULSE 86; TEMP 97.7; O2SAT 92
[2025-08-20 05:00] VITALS: BP 140/86; PULSE 66; RESP 18; TEMP 97.7; O2SAT 91
[2025-08-20 07:02] LABS: Hematocrit 38.1 % (41.0-53.0); Hemoglobin 12.8 g/dL (13.5-17.5); Mean Corpuscular Hemoglobin 33.0 pg (28.0-32.0); Mean Corpuscular Volume 98.3 fL (80.0-100.0); Nucleated Red Blood Cells % 0.0 %
[2025-08-20 07:18] LABS: Alanine Aminotransferase 36 U/L (7-40); Anion Gap 10 (5-15); Carbon Dioxide 24 mmol/L (20-31); Chloride 106 mmol/L (98-107); Glucose 85 mg/dL (74-106); Potassium 3.8 mmol/L (3.5-5.1); Sodium 140 mmol/L (136-145); Total Protein 5.8 g/dL (5.7-8.2)
[2025-08-20 07:20] LABS: Bilirubin, Total 1.0 mg/dL (0.2-1.0)
[2025-08-20 07:23] LABS: Albumin 3.1 g/dL (3.2-4.8); Alkaline Phosphatase 134 U/L (46-116); BUN/Creatinine Ratio 11.1 (10.0-20.0); Blood Urea Nitrogen < 5 mg/dL (9-23); Calcium 8.1 mg/dL (8.7-10.4)
[2025-08-20 07:37] LABS: Bilirubin, Direct 0.6 mg/dL (<0.3)
[2025-08-20 09:00] VITALS: BP 133/94; PULSE 61; RESP 19; TEMP 97.9; O2SAT 94
[2025-08-20] MEDS ORDERED: HYDR-4902 PO (10:27)
--- NOTE | 2025-08-20 10:48 | DVHPN2 ---
Progress Note - Surgical Date Seen: Aug 20, 2025 Post op day Post op day: 3 Subjective Patient reports: Feels better (Patient states he feels great, no abdominal pain complaints, tolerated low-fat diet, afebrile with vital signs stable) Review of Systems: Deferred Objective Vital signs Vital Sign Date Time Temp Pulse Resp B/P (MAP) Pulse Ox O2 Delivery O2 Flow Rate FiO2 08/20/25 09:00 97.9 61 19 133/94 (107) 94 97.9 08/19/25 20:00 Nasal Cannula* 3 32 Total Intake and Output 08/19/25 08/19/25 08/20/25 15:00 23:00 07:00 Intake Total 1300 ml 550 ml Output Total 5 ml Balance 1295 ml 550 ml Medications Current Medications Medications Dose Ordered Sig/Sergio Route Start Time Stop Time Status Last Admin Dose Admin Ondansetron HCl 4 mg Q4HP PRN IV 08/11/25 22:15 08/15/25 08:54 4 MG Pantoprazole Sodium 40 mg DAILY IV 08/12/25 10:00 08/19/25 10:19 40 MG Atorvastatin Calcium 20 mg HS PO 08/12/25 22:00 08/19/25 22:56 20 MG Levothyroxine Sodium 25 mcg QAM@0600 PO 08/12/25 06:00 08/20/25 06:20 25 MCG Zolpidem Tartrate 10 mg HSPRN PRN PO 08/11/25 23:15 08/19/25 23:51 10 MG Acetaminophen 650 mg Q6HP PO 08/12/25 06:00 Cancel Hydromorphone HCl 0.25 mg Q4HPRN PRN IV 08/12/25 05:15 08/18/25 10:32 0.25 MG Enoxaparin Sodium 90 mg Q12HR SC 08/12/25 22:00 08/18/25 23:13 90 MG Piperacillin Sod/ Tazobactam Sod 100 ml @ 25 mls/hr Q8HR IV 08/13/25 14:00 08/20/25 06:20 25 MLS/HR Diphenhydramine HCl 25 mg Q6HP PRN IV 08/13/25 11:45 Docusate Sodium 100 mg BID PO 08/14/25 22:00 08/18/25 23:15 100 MG Lactulose 30 ml DAILYPRN PRN PO 08/14/25 18:00 Acetaminophen/ Hydrocodone Bitart 1 tab Q4HPRN PRN PO 08/18/25 09:00 Acetaminophen 650 mg Q6HR PO 08/18/25 12:00 08/20/25 06:20 650 MG Ibuprofen 600 mg Q8HR PO 08/18/25 14:00 08/20/25 06:20 600 MG Polyethylene Glycol 17 gm DAILY PO 08/18/25 10:00 08/18/25 11:39 17 GM Amiodarone HCl 200 mg DAILY PO 08/19/25 10:00 08/19/25 10:36 200 MG Laboratory Laboratory Tests 08/20/25 05:55 Test 08/20/25 05:55 Range/Units Serum Glucose 85 74-106 mg/dL Microbiology Date/Time Source Procedure Growth Status 08/17/25 12:33 Abdomen Gram Stain - Final Resulted 08/17/25 12:33 Abdomen Anaerobic Culture - Preliminary Resulted 08/17/25 12:33 Abdomen Aerobic Culture - Preliminary Resulted 08/11/25 23:19 Blood Blood Culture - Final NO GROWTH AFTER 5 DAYS OF INCUBATION. Complete Examination: GENERAL:Normal, HEENT:Normal (No icterus), ABDOMEN:Normal (Nondistended, incision sites with skin glue in place, and without surrounding signs of infection, nontender, right upper quadrant drain with minimal serosanguineous output, nontender) Labs and/or images reviewed: Labs reviewed by me (No leukocytosis, LFTs within normal limits) Problem List/Assessment/Plan Assessment and Plan Mr. Rubio is a 59-year-old male who presents with the acute cholecystitis. Ultrasound shows multiple stones in the gallbladder lumen and physical exam remarkable for tenderness in the right upper quadrant. Patient will benefit from laparoscopic cholecystectomy although given his past medical history he would need prior cardiac clearance and he will also need Xarelto washout of at least 5 days. Interval: Patient is postop day 3 from laparoscopic cholecystectomy, due to a gangrenous and perforated gallbladder. Patient doing very well, tolerating diet, vital signs were completely stable, liver function tests within normal limits, minimal SAM drain serosanguineous output. Since patient completed 48 hours of IV antibiotics he can be discharged home with additional p.o. antibiotics for a total 7 days. 1. Cleared for discharge per surgical standpoint 2. Please provide Augmentin 875-125 mg 1 tab p.o. every 12 hours for an additional 4 days 3. No lifting over 10 lb for 6-8 weeks after the surgery. After this timeframe you can increase your physical activity slowly. 4. May shower soap and water can run over incision sites. No bathing or swimming for 2 weeks after surgery. 5. Low-fat diet 6. Please provide drain education, as patient will be going home with the drain. 7. 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 Follow-up at surgery Clinic with Dr. Martinez in 1 week, please call office and make appointment for SaturdayAugust 30 My Orders My Orders Orders - DALIA SARMIENTO MD Procedure Category Date Status Time Cardiac DIET 08/19/25 Transmitted Diet-2gna,Lofat,Lochol Dinner Plan discussed with Plan discussed with: Patient Visit Coding Surgery Date of Service if different f: Aug 20, 2025 Billing Provider: DALIA SARMIENTO MD Surgery Visit Codes: [id number] INP/OBS CARE(HIGH) DALIA SARMIENTO MD Aug 20, 2025 10:48
[2025-08-20 12:26] VITALS: BP 133/94; PULSE 61; RESP 19; TEMP 97.9; O2SAT 94
--- NOTE | 2025-08-20 13:08 | DVHDSRES ---
Discharge Summary Date of Admission Resident Creating Document: HARVEY BERNSTEIN RESIDENT Aug 11, 2025 at 22:03 Date of Discharge: Aug 20, 2025 Labs/Diagnostic Data: Laboratory Results Test 08/20/25 05:55 08/19/25 05:54 08/16/25 22:00 08/16/25 13:12 White Blood Count 5.7 10^3/uL (4.4-10.8) Red Blood Count 3.88 10^6/uL (4.5-5.90) Hemoglobin 12.8 g/dL (13.5-17.5) Hematocrit 38.1 % (41.0-53.0) Mean Corpuscular Volume 98.3 fL (80.0-100.0) Mean Corpuscular Hemoglobin 33.0 pg (28.0-32.0) Mean Corpuscular Hemoglobin Concent 33.5 g/dL (32.0-36.0) Red Cell Distribution Width 15.5 % (11.8-14.3) Platelet Count 248 10^3/uL (140-450) Mean Platelet Volume 8.1 fL (6.9-10.8) Neutrophils (%) (Auto) 57.9 % (37.0-80.0) Lymphocytes (%) (Auto) 22.6 % (10.0-50.0) Monocytes (%) (Auto) 14.3 % (0.0-12.0) Eosinophils (%) (Auto) 4.3 % (0.0-7.0) Basophils (%) (Auto) 0.9 % (0.0-2.0) Neutrophils # (Auto) 3.3 10 ^3/uL (1.6-8.6) Lymphocytes # (Auto) 1.3 10 ^3/uL (0.4-5.4) Monocytes # (Auto) 0.8 10 ^3/uL (0-1.3) Eosinophils # (Auto) 0.2 10 ^3/uL (0-0.8) Basophils # (Auto) 0 10 ^3/uL (0-0.2) Nucleated Red Blood Cells 0.0 % Sodium Level 140 mmol/L (136-145) Potassium Level 3.8 mmol/L (3.5-5.1) Chloride Level 106 mmol/L (98-107) Carbon Dioxide Level 24 mmol/L (20-31) Anion Gap 10 (5-15) Blood Urea Nitrogen < 5 mg/dL (9-23) Creatinine 0.45 mg/dL (0.700-1.30) Glomerular Filtration Rate Calc 120 mL/min (>90) BUN/Creatinine Ratio 11.1 (10.0-20.0) Serum Glucose 85 mg/dL (74-106) Calcium Level 8.1 mg/dL (8.7-10.4) Total Bilirubin 1.0 mg/dL (0.2-1.0) Direct Bilirubin 0.6 mg/dL (<0.3) Aspartate Amino Transferase (AST) 28 U/L (13-40) Alanine Aminotransferase (ALT) 36 U/L (7-40) Alkaline Phosphatase 134 U/L (46-116) Total Protein 5.8 g/dL (5.7-8.2) Albumin 3.1 g/dL (3.2-4.8) Magnesium Level 1.7 mg/dL (1.6-2.6) Urine Color Dark-yellow (Yellow) Urine Clarity Clear (Clear) Urine pH 6.0 (5.0-9.0) Urine Specific [place] 1.011 (1.001-1.035) Urine Protein Negative (Negative) Urine Ketones Negative (Negative) Urine Blood Negative /uL (Negative) Urine Nitrite Negative (Negative) Urine Bilirubin 2+ (Negative) Urine Urobilinogen 12 mg/dL (Negative) Urine Leukocyte Esterase Negative /uL (Negative) Urine RBC None seen /hpf (0 - 3) Urine Microscopic WBC 1 /HPF (0-3) Urine Squamous Epithelial Cells None seen /hpf (<5) Urine Bacteria None seen /hpf (None Seen) Urine Glucose Normal mg/dL (Normal) Prothrombin Time 11.8 sec (9.3-11.8) Prothrombin Time INR 1.13 (0.9-1.15) Activated Partial Thromboplast Time 30.8 SEC (24.5-34.5) Test 08/13/25 10:50 08/12/25 09:24 08/11/25 21:27 08/11/25 16:33 Lactic Acid Level 0.8 mmol/L (0.4-2.0) Urine Mucus Few (None Seen) Urine Opiates Screen Neg (NEGATIVE) Urine Fentanyl Screen Neg (NEGATIVE) Urine Barbiturates Screen Neg (NEGATIVE) Urine Phencyclidine Screen Neg (NEGATIVE) Urine Amphetamines Screen Neg (NEGATIVE) Urine Benzodiazepines Screen Neg (NEGATIVE) Urine Cocaine Screen Neg (NEGATIVE) Urine Cannabinoids Screen Neg (NEGATIVE) Phosphorus Level 3.0 mg/dL (2.4-5.1) C-Reactive Protein High Sensitivity 4.03 mg/dL (<1.0) Triglycerides Level 72 mg/dL (< 150) Cholesterol Level 90 mg/dL (< 200) LDL Cholesterol 42 mg/dL (< 100) HDL Cholesterol 36 mg/dL (40-59) Lipase 25 U/L (12-53) Hemoglobin A1c 5.7 % A1C (<5.7) Vitamin B12 Level 350 pg/mL (211-911) Vitamin D 25-Hydroxy 51.0 ng/mL (30.0-100) Thyroid Stimulating Hormone (TSH) 1.66 uIU/mL (0.55-4.78) Other Laboratory Tests 08/20/25 05:55 Brief Hx & Hospital Course: Brief history on admission, hospital course: This is a 59-year-old male with past medical history of liver cirrhosis, hypertension, COPD, CAD s/p angiography no stents placed, cholecystitis, presented to the ER with chief complain of abdominal pain. The pain is located in right upper quadrant, started to day, described as sharp, intermittent, 9/10, aggravates with inspiration. He also complained of nausea and lightheadedness. He denies vomiting, fever, chills. Patient uses 4 L oxygen at home as needed. His in his show labs showed neutrophilic leukocytosis, transaminitis, Liver US revealed indeterminate study with gallstones, wall thickening, and positive sonographic Adamson's sign, Cirrhotic appearing liver. Patient was on Eliquis on arrival, 5 day washout period recommended by the surgeon. Patient was started on IV antibiotics Cefoxitin, metronidazole, eventually switched to IV Zosyn. Supportive management provided with pain medications, Zofran, Protonix. After Xarelto washout period & coagulation profile normalization, he underwent laparoscopic cholecystectomy on 08/17/2025, revealing gangrenous and perforated gallbladder with surrounding abscess pocket. A SAM drain was left in place. Patient continued to improve and diet was advanced. Patient's labs and vitals are stable, patient will be discharged on oral Augmentin for 5 days. Conditions treated during stay: Sepsis due to acute Gangrenous and perforated cholecystitis, status post laparoscopic cholecystectomy with SAM drain in place Chronic cholecystitis Transaminitis due to Macro nodular Cirrhotic liver Hyperlipidemia Hypertension Hypothyroidism Paroxysmal Atrial fibrillation stage IIIA Hypomagnesemia, resolved COPD, without exacerbation History of Coronary artery disease Insomnia Discharge plan: Continue Augmentin p.o. b.i.d. for 5 days Continue [place] as needed for pain control Continue home medications Please follow-up with PCP in 1 week Please follow-up with surgery as outpatient in 7-10 days Please follow-up with cardiology as outpatient Consults/Reason for consult General surgery was consulted for acute cholecystitis, recommended laparoscopic cholecystectomy after a 5 days Xarelto washout period. Operations or Procedures Report Details Date: 08/17/25 Preop Diagnosis: Acute cholecystitis Postop Diagnosis: Acute gangrenous and perforated cholecystitis Surgeon: Karthikeyan Michel MD Anesthesiologist: MERLE Easley Dr., Dr. Anesthesia: General Drains: 19 Turkmen round channel drain placed under the liver and exiting through the right flank port site Consent: The patient was informed of the risks and benefits of the procedure. These include but are not limited to complications of anesthesia, postoperative infection, incomplete relief of symptoms, recurrence of symptoms, damage to blood vessels, nerves and tendons, deep venous thrombosis, pulmonary embolism and possible need for repeat surgery in the future. Complications: None Estimated Blood Loss: 75 mL Findings: Gangrenous and perforated gallbladder with surrounding abscess pocket. Omental adhesions to liver and gallbladder. Top half of the gallbladder was already off of the liver and firmly adhered to omentum. Macro nodular Cirrhotic liver Chronic inflammatory changes between the gallbladder liver and surrounding tissues, very thick and dense adhesions. Thin omental adhesions to anterior abdominal wall. Indications for Surgery: Cholecystitis Name of Procedure Performed Laparoscopic cholecystectomy Procedure Details Procedure Details: Upon arrival to the operating room the patient was transferred to the operating table and placed in the supine position with arms extended. General endotracheal anesthesia was induced. Time-out was observed. Patient was prepped and draped in the standard sterile surgical fashion with chlorhexidine. I then identified armstrong's point and I made a 5 mm incision. I then proceeded to gained entry into the peritoneal cavity with Veress needle technique at armstrong's point. Once in the cavity, it was insufflated to 15 mmHg with toleration. I then placed the 1st trocar utilizing Optiview at lamont's point. I then surveyed the entry site, no injuries. I then surveyed the peritoneal cavity and noted thin omental adhesions to the anterior abdominal wall, 1 adhesion in the supraumbilical area and 1 adhesion anterior to the liver. I then proceeded to place a 12 mm port at the right of midline position 2 cm above the umbilicus, under direct vision. I then utilized the 12 mm port to enter with a 10 mm 30 degree camera. I then lysed the omental adhesion that was anterior to the liver, using cautery. Patient was then placed in the reverse Trendelenburg [id number] position. I then placed 3 additional working ports under direct vision, 1 in the epigastric area, another at the right midclavicular subcostal area, and right flank area; all ports were 5 mm. I then directed my attention to the liver, liver had macronodular cirrhosis and thick omental adhesions to its edge. Utilizing blunt dissection and cautery I was able to free the edge of the liver. Pus immediately started emanating, and it was suctioned. Some of the pus was sent for culture. I then was able to push the omentum off of the liver, slowly, using blunt dissection and cautery. At this point I was able to see the gallbladder fossa top half, bare. I could not see the gallbladder. Approximally the top half of the gallbladder was completely off of the liver bed and firmly adhesed to the omentum that was immediately laying below the liver. I then was able to free the gallbladder off of the omentum using blunt dissection and cautery. The gallbladder was gangrenous with a large gaping hole and its back wall with bile and pus emanating from it. Small stones identified in the lumen of the gallbladder. Lumen of the gallbladder was suctioned. I then slowly and carefully started dissecting the gallbladder off of the liver, in a dome down fashion, since there were too many adhesions around where the leanne is at. This dissection was extremely cumbersome given the severe thick adhesions. I also had to use the LigaSure device during this dissection. While doing this in the medial aspect I cut through the cystic artery, high on the medial wall site. Cystic artery was promptly controlled with 3 clips proximally. At this point I still hadn't visualize the cystic duct. Gallbladder was ripping into pieces as I retracted on it. I was then finally able to see the crease between the gallbladder under belly and the CBD below on the lateral aspect, carefully bluntly dissected the CBD off of the gallbladder under belly. When I finish this move I was able to identify the cystic duct, which was enlarged but not gangrenous. I then proceeded to clip the duct with 3 5 mm clips proximally and 1 distal. I then proceeded to transected duct. The gallbladder was still firmly adhesed to the low liver fossa and leanne area. At this point I decided to transect the gallbladder leaving behind a small piece of the posterior wall, that was firmly adhesed to the leanne. The dissection of the gallbladder, from the liver/omentum and surrounding structures, to be able to identify the duct and artery took over 2-1/2 hours due to the severity and density of the adhesions. I then placed all the pieces of the gallbladder into the Endo-Catch bag and removed it through the 12 mm port site. I then placed a 0 Vicryl stitch utilizing the Abdoulaye-Beatrice device at the 12 mm site. I then directed my attention again to the gallbladder fossa area. I looked at the clips they were all in place. I then copiously irrigated the gallbladder fossa and over the liver until all effluent was clear. The fossa was hemostatic. I then placed a 19 Turkmen round channel drain under the liver and exiting out of the right flank port site. Counts were complete and correct at the end of the procedure. I then proceeded to removed all 5 mm ports under direct vision, no bleeding from the abdominal wall. Peritoneal cavity was allowed to desufflate completely. The 0 Vicryl stitch was closed. All skin sites were closed with 4-0 Monocryl and Dermabond. 0.25% Marcaine was used as local anesthetic. Patient tolerated the procedure well and was transferred to PACU in stable condition. Specimen: Gallbladder Condition Stable INDICATION: Cholecystitis TECHNIQUE: Multiple real-time sonographic images were obtained of the right upper quadrant. COMPARISON: US GALLBLADDER on DOS: 07/12/25, US LIVER on DOS: 03/24/25 FINDINGS: The liver demonstrates heterogeneous echotexture without focal mass lesions. The liver measures 17.4 cm. Suspect some surface nodularity. There is no intrahepatic or extrahepatic ductal dilatation. The common duct measures 0.4 cm. Sludge and mobile stones in the gallbladder. Borderline gallbladder distention. Sonographic Adamson's sign is positive. The gallbladder wall measures 1.1 cm. The right kidney measures 11.9 cm. The right kidney is normal in contour, size, and shape. The echogenicity is normal. There is no hydronephrosis. The pancreas is not well visualized due to overlying bowel gas. IMPRESSION: Somewhat indeterminate study with gallstones, wall thickening, and positive sonographic adamson's sign however no tense gallbladder distention and no significant surrounding inflammatory changes. Close follow-up recommended. Cirrhotic appearing liver. CHEST RADIOGRAPH Indication: sob Technique: Single frontal view of the chest was obtained Comparison: XY CHEST XRAY 1 VIEW on DOS: 07/12/25, XY CHEST PORTABLE on DOS: 03/24/25, XY CHEST PORTABLE on DOS: 04/14/23 FINDINGS: Lines and Tubes: None Lungs: Increased bibasilar bronchovascular markings are noted this may be due to atelectasis or infection. Is a change from the previous study of 07/11/2025. Pleura: No effusion. No pneumothorax. Cardiomediastinal contours: Unremarkable Bones: No acute osseous abnormality. IMPRESSION: 1. Increased bronchovascular markings in both lung bases when compared to 07/12/2025. 2. This may be due to atelectasis or infection. Correlate with the clinical setting. Condition at Discharge: Stable Final Diagnosis/Problems List Sepsis due to acute Gangrenous and perforated cholecystitis, status post laparoscopic cholecystectomy with SAM drain in place Chronic cholecystitis Transaminitis due to Macro nodular Cirrhotic liver Hyperlipidemia Hypertension Hypothyroidism Paroxysmal Atrial fibrillation stage IIIA Hypomagnesemia, resolved COPD, without exacerbation History of Coronary artery disease Insomnia Discharge Disposition: Home Discharge Instruct/Medications Diet: Cardiac 2g Na,low cholest Activity: No Restrictions, As Tolerated Follow Up/Referral: Follow up with PCP in one week Follow up with surgery in the clinic in 7-10 days Medications: As per EHR New Medications: Hydrocodone-Acetaminophen (Hydrocodone Bitartrate/AC 5-325 mg) 1 Tab Tab 1 TAB PO Q6HP PRN, #15 TAB Scheduled Amiodarone Hcl (Amiodarone Hcl), 1 TAB PO BID Amoxicillin & Pot Clavulanate (Augmentin Tablet), 875 MG PO BID Atorvastatin Calcium (Lipitor), 1 TAB PO QPM Carvedilol (Carvedilol), 1 TAB PO BID, (Reported) Carvedilol (Coreg), 1 TAB PO BID Dapagliflozin Propanediol (Farxiga), 10 MG PO DAILY Enalapril Maleate (Enalapril Maleate), 1 TAB PO DAILY Escitalopram Oxalate (Escitalopram Oxalate), 1 TAB PO DAILY, (Reported) Furosemide (Furosemide), 1 TAB PO DAILY, (Reported) Furosemide (Lasix), 1 TAB PO DAILY Levothyroxine Sodium (Synthroid Tablet), 1 TAB PO DAILY, (Reported) Rivaroxaban (Xarelto), 1 TAB PO DAILY Zolpidem Tartrate (Zolpidem Tartrate), 1 TAB PO QPM, (Reported) Scheduled PRN Hydrocodone-Acetaminophen (Hydrocodone Bitartrate/AC 5-325 mg), 1 TAB PO Q6HP PRN Miscellaneous Medications Pantoprazole Sodium (Pantoprazole Sodium), 40 MG PO, (Reported) Discharge Statement: "Patient was advised to return to the ER or call 911 if any headaches, dizziness, shortness of breath, chest pain, abdominal pain, bleeding, fevers, or worsening of medical condition. Patient was counseled about treatment plan, medications, possible side effects, patientverbalized understanding. All questions were answered to the best of my ability. This discharge took greater then 30 minutes in planning, reviewing documentation, counseling the patient, and discussing with other team members." ASSESSMENT ASSESSMENT Assessment Acute gangrenous and perforated cholecystitis Date of Service: Aug 20, 2025 Billing Provider: KESHA JIMENEZ MD Common Visit Codes: 83531-[id number]/[id number] DISCH DAY >30min HARVEY BERNSTEIN RESIDENT Aug 20, 2025 13:08 KESHA JIMENEZ MD Aug 23, 2025 21:14
[2025-08-20] MEDS ORDERED: AUG875T PO (13:55)
== END 2025-08-20 14:26 | disposition home or self-care (01) | DRG 710 ==
LOC: EDBD 14:49 → ER 14:49 → EDUNIT# 14:49 → OVERFLOW 22:03 → TELE-EAST 23:05 → OVERFLOW 23:08 → TELE-EAST 23:30
PROVIDERS: ADMIT Internal Medicine Geriatric Medicine; ATTEND Internal Medicine Geriatric Medicine
PROC: 0FT44ZZ Resection of Gallbladder, Percutaneous Endoscopic Approach (ICD-10-PCS; principal; 2025-08-17 11:53)
DX: A41.9 Sepsis, unspecified organism (principal); K82.A2 Perforation of gallbladder in cholecystitis; K82.A1 Gangrene of gallbladder in cholecystitis; I50.32 Chronic diastolic (congestive) heart failure; E78.5 Hyperlipidemia, unspecified; I48.0 Paroxysmal atrial fibrillation; J44.9 Chronic obstructive pulmonary disease, unspecified; E03.9 Hypothyroidism, unspecified; E83.42 Hypomagnesemia; F17.210 Nicotine dependence, cigarettes, uncomplicated; K52.9 Noninfective gastroenteritis and colitis, unspecified; K80.12 Calculus of gallbladder with acute and chronic cholecystitis without obstruction; I25.10 Atherosclerotic heart disease of native coronary artery without angina pectoris; I11.0 Hypertensive heart disease with heart failure; G47.00 Insomnia, unspecified; R74.01 Elevation of levels of liver transaminase levels; K66.0 Peritoneal adhesions (postprocedural) (postinfection); K74.69 Other cirrhosis of liver; I44.0 Atrioventricular block, first degree; Z99.81 Dependence on supplemental oxygen; Z90.49 Acquired absence of other specified parts of digestive tract; Z88.0 Allergy status to penicillin; Z91.013 Allergy to seafood; Z82.49 Family history of ischemic heart disease and other diseases of the circulatory system; Z80.3 Family history of malignant neoplasm of breast
CPT/HCPCS: 36415; 71045; 76705; 80048; 80053; 80061; 80076; 80307; 81001; 82248; 82306; 82607; 83036; 83605; 83690; 83735; 84100; 84443; 85014; 85018; 85025; 85610; 85730; 86141; 86850; 86900; 86901; 87040; 87070; 87075; 87077; 87186; 87205; 93005; 96365; G0378; J0131; J0694; J1100; J1885; J2003; J2250; J2405; J2470; J2543; J2704; J3490

== ENCOUNTER → 2025-10-14 | Outpatient (CLI) | payer MEDICAID ==
[~2025-10-14] MED LIST changes: +AUG875T PO; +HYDR-4902 PO
[2025-10-14 12:36] LABS: Alanine Aminotransferase 12 U/L (7-40); Albumin 4.4 g/dL (3.2-4.8); Alkaline Phosphatase 114 U/L (46-116); Anion Gap 8 (5-15); BUN/Creatinine Ratio 15.4 (10.0-20.0); Bilirubin, Total 0.6 mg/dL (0.2-1.0); Blood Urea Nitrogen 10 mg/dL (9-23); Calcium 9.6 mg/dL (8.7-10.4); Carbon Dioxide 28 mmol/L (20-31); Chloride 105 mmol/L (98-107); Glucose 93 mg/dL (74-106); Potassium 4.2 mmol/L (3.5-5.1); Sodium 141 mmol/L (136-145); Total Protein 7.4 g/dL (5.7-8.2)
== END | disposition home or self-care (01) ==
LOC: LAB 11:47
PROVIDERS: ATTEND Internal Medicine
DX: E11.9 Type 2 diabetes mellitus without complications (principal); N52.9 Male erectile dysfunction, unspecified
CPT/HCPCS: 36415; 80053; 84403